=== PATIENT | male | born 1960 | race Caucasian/White ===

== ENCOUNTER 2018-12-10 09:06 | Emergency (ER) | payer SELFPAY ==
--- OUTSIDE RECORDS SUMMARY | 2018-12-10 09:13 | XMS REPORT | Summary of Care ---
:1960 Author Organization [facility] Address [address] [place] [id number] Care Team Providers Name Role Phone Pcp, Patient Does Not Have A Primary Care Provider Reason for Visit Auth/Cert Status Reason Specialty Diagnoses / Procedures Referred By Contact Referred To Contact [facility] [address] [place] [address] Encounter Details Date Type Department Care Team Description 10/25/2018 Hospital Encounter [facility] [address] [facility] [address] [place] [address] [id number] [place], [place] [id number] Allergies No Known Allergiesdocumented as of this encounter (statuses as of 10/28/2018) Medications Medication Sig Dispensed Refills Start Date End Date Status atorvastatin (LIPITOR) 10 0 04/24/2015 Active mg tablet losartan (COZAAR) 100 mg 0 04/24/2015 Active tablet metoprolol succinate XL 0 05/04/2015 Active (TOPROL XL) 100 mg 24 hr tablet hydrochlorothiazide TAKE 1 TABLET 30 tablet 0 09/26/2015 Active (ESIDRIX) 25 mg tablet BY MOUTH DAILY documented as of this encounter (statuses as of 10/28/2018) Active Problems Problem Noted Date Essential hypertension 05/12/2015 Hyperlipidemia 05/12/2015 Tobacco use 05/12/2015 Psoriasis 05/12/2015 documented as of this encounter (statuses as of 10/28/2018) Social History Tobacco Use Types Packs/Day Years Used Date Former Smoker Cigarettes 1 5 Quit: 05/12/1994 Smokeless Tobacco: Current User Snuff Comments: 1 can daily Alcohol Use Drinks/Week oz/Week Comments Yes 6 Cans of beer 3.6 Sex Assigned at Date Recorded Not on file Job Start Date Occupation Industry Not on file Not on file Not on file Travel History Travel Start Travel End No recent travel history available. documented as of this encounter Last Filed Vital Signs Not on filedocumented in this encounter Plan of Treatment Health Maintenance Due Date Last Done Comments HEPATITIS C (HCV) SCREEN 1960 DTaP,Tdap,and Td Vaccines (1 - 1977 Tdap) COLONOSCOPY 2008 Zoster Recombinant Vaccine 2008 (SHINGRIX) (1 of 2) INFLUENZA VACCINE 11/22/2018 PNEUMOCOCCAL 0-64 YEARS COMBINED Aged Out No longer eligible based on SERIES patient's age to complete this topic documented as of this encounter Results Not on filedocumented in this encounter
--- OUTSIDE RECORDS SUMMARY | 2018-12-10 09:13 | XMS REPORT ---
:1960 [facility] [address] [place] [address] Care Team Providers Name Role Phone Unavailable Unavailable Unavailable Problems This patient has no known problems. Allergies, Adverse Reactions, Alerts This patient has no known allergies or adverse reactions. Medications This patient has no known medications. Results Test Description Test Time Test Comments Text Results Atomic Results Result Comments POC Glucose 2018-11-09 06:10:22 Test Item Value Reference Range Comments Glucose POC (test code=Glucose 88 mg/dL 70-115 If you consider your patient POC) critically ill, the Marcelino-Accu Check Infrom II meter should not be used for Glucose determination. Draw a venous Glucose and send to the main Lab for analysis. POC [id number] 19:02:50 Test Item Value Reference Range Comments Glucose POC (test 124 mg/dL 70-115 If you consider your patient code=Glucose POC) critically ill, the Marcelino-Accu Check Infrom II meter should not be used for Glucose determination. Draw a venous Glucose and send to the main Lab for analysis. POC [id number] 15:02:23 Test Item Value Reference Range Comments Glucose POC (test 124 mg/dL 70-115 If you consider your patient code=Glucose POC) critically ill, the Marcelino-Accu Check Infrom II meter should not be used for Glucose determination. Draw a venous Glucose and send to the main Lab for analysis. POC [id number] 10:48:16 Test Item Value Reference Range Comments Glucose POC (test 110 mg/dL 70-115 Notify RN or MDIf you consider code=Glucose POC) your patient critically ill, the Marcelino-Accu Check Infrom II meter should not be used for Glucose determination. Draw a venous Glucose and send to the main Lab for analysis. POC [id number] 05:50:44 Test Item Value Reference Range Comments Glucose POC (test 92 mg/dL 70-115 If you consider your patient code=Glucose POC) critically ill, the Marcelino-Accu Check Infrom II meter should not be used for Glucose determination. Draw a venous Glucose and send to the main Lab for analysis. POC [id number] 19:25:14 Test Item Value Reference Range Comments Glucose POC (test 125 mg/dL 70-115 Notify RN or MDIf you consider code=Glucose POC) your patient critically ill, the Marcelino-Accu Check Infrom II meter should not be used for Glucose determination. Draw a venous Glucose and send to the main Lab for analysis. POC [id number] 17:25:19 Test Item Value Reference Range Comments Glucose POC (test 103 mg/dL 70-115 Notify RN or MDIf you consider code=Glucose POC) your patient critically ill, the Marcelino-Accu Check Infrom II meter should not be used for Glucose determination. Draw a venous Glucose and send to the main Lab for analysis. POC [id number] 12:14:50 Test Item Value Reference Range Comments Glucose POC (test 103 mg/dL 70-115 If you consider your patient code=Glucose POC) critically ill, the Marcelino-Accu Check Infrom II meter should not be used for Glucose determination. Draw a venous Glucose and send to the main Lab for analysis. POC [id number] 06:21:22 Test Item Value Reference Range Comments Glucose POC (test 93 mg/dL 70-115 If you consider your patient code=Glucose POC) critically ill, the Marcelino-Accu Check Infrom II meter should not be used for Glucose determination. Draw a venous Glucose and send to the main Lab for analysis. POC [id number] 19:36:16 Test Item Value Reference Range Comments Glucose POC (test 113 mg/dL 70-115 If you consider your patient code=Glucose POC) critically ill, the Marcelino-Accu Check Infrom II meter should not be used for Glucose determination. Draw a venous Glucose and send to the main Lab for analysis. POC [id number] 14:53:15 Test Item Value Reference Range Comments Glucose POC (test 136 mg/dL 70-115 Notify RN or MDIf you consider code=Glucose POC) your patient critically ill, the Marcelino-Accu Check Infrom II meter should not be used for Glucose determination. Draw a venous Glucose and send to the main Lab for analysis. POC [id number] 11:03:52 Test Item Value Reference Range Comments Glucose POC (test 110 mg/dL 70-115 Notify RN or MDIf you consider code=Glucose POC) your patient critically ill, the Marcelino-Accu Check Infrom II meter should not be used for Glucose determination. Draw a venous Glucose and send to the main Lab for analysis. POC [id number] 06:11:41 Test Item Value Reference Range Comments Glucose POC (test 92 mg/dL 70-115 If you consider your patient code=Glucose POC) critically ill, the Marcelino-Accu Check Infrom II meter should not be used for Glucose determination. Draw a venous Glucose and send to the main Lab for analysis. POC [id number] 19:07:17 Test Item Value Reference Range Comments Glucose POC (test 128 mg/dL 70-115 If you consider your patient code=Glucose POC) critically ill, the Marcelino-Accu Check Infrom II meter should not be used for Glucose determination. Draw a venous Glucose and send to the main Lab for analysis. POC [id number] 15:37:40 Test Item Value Reference Range Comments Glucose POC (test 109 mg/dL 70-115 If you consider your patient code=Glucose POC) critically ill, the Marcelino-Accu Check Infrom II meter should not be used for Glucose determination. Draw a venous Glucose and send to the main Lab for analysis. POC [id number] 10:42:43 Test Item Value Reference Range Comments Glucose POC (test 132 mg/dL 70-115 If you consider your patient code=Glucose POC) critically ill, the Marcelino-Accu Check Infrom II meter should not be used for Glucose determination. Draw a venous Glucose and send to the main Lab for analysis. POC [id number] 06:09:11 Test Item Value Reference Range Comments Glucose POC (test 97 mg/dL 70-115 If you consider your patient code=Glucose POC) critically ill, the Marcelino-Accu Check Infrom II meter should not be used for Glucose determination. Draw a venous Glucose and send to the main Lab for analysis. POC [id number] 19:44:43 Test Item Value Reference Range Comments Glucose POC (test 110 mg/dL 70-115 If you consider your patient code=Glucose POC) critically ill, the Marcelino-Accu Check Infrom II meter should not be used for Glucose determination. Draw a venous Glucose and send to the main Lab for analysis. POC [id number] 16:50:44 Test Item Value Reference Range Comments Glucose POC (test 101 mg/dL 70-115 If you consider your patient code=Glucose POC) critically ill, the Marcelino-Accu Check Infrom II meter should not be used for Glucose determination. Draw a venous Glucose and send to the main Lab for analysis. POC [id number] 11:02:46 Test Item Value Reference Range Comments Glucose POC (test 113 mg/dL 70-115 Notify RN or MDIf you consider code=Glucose POC) your patient critically ill, the Marcelino-Accu Check Infrom II meter should not be used for Glucose determination. Draw a venous Glucose and send to the main Lab for analysis. POC [id number] 06:36:10 Test Item Value Reference Range Comments Glucose POC (test 100 mg/dL 70-115 If you consider your patient code=Glucose POC) critically ill, the Marcelino-Accu Check Infrom II meter should not be used for Glucose determination. Draw a venous Glucose and send to the main Lab for analysis. POC [id number] 19:50:11 Test Item Value Reference Range Comments Glucose POC (test 114 mg/dL 70-115 Notify RN or MDIf you consider code=Glucose POC) your patient critically ill, the Marcelino-Accu Check Infrom II meter should not be used for Glucose determination. Draw a venous Glucose and send to the main Lab for analysis. POC [id number] 14:58:14 Test Item Value Reference Range Comments Glucose POC (test 127 mg/dL 70-115 Notify RN or MDIf you consider code=Glucose POC) your patient critically ill, the Marcelino-Accu Check Infrom II meter should not be used for Glucose determination. Draw a venous Glucose and send to the main Lab for analysis. POC [id number] 10:55:10 Test Item Value Reference Range Comments Glucose POC (test 115 mg/dL 70-115 Notify RN or MDIf you consider code=Glucose POC) your patient critically ill, the Marcelino-Accu Check Infrom II meter should not be used for Glucose determination. Draw a venous Glucose and send to the main Lab for analysis. Vitamin B12 [id number] 07:24:52 Test Item Value Reference Range Comments B12 Level (test code=B12 Level) 494 pg/mL 211-946 POC [id number] 06:24:38 Test Item Value Reference Range Comments Glucose POC (test 93 mg/dL 70-115 If you consider your patient code=Glucose POC) critically ill, the Marcelino-Accu Check Infrom II meter should not be used for Glucose determination. Draw a venous Glucose and send to the main Lab for analysis. POC [id number] 20:21:08 Test Item Value Reference Range Comments Glucose POC (test 144 mg/dL 70-115 If you consider your patient code=Glucose POC) critically ill, the Marcelino-Accu Check Infrom II meter should not be used for Glucose determination. Draw a venous Glucose and send to the main Lab for analysis. POC [id number] 15:45:14 Test Item Value Reference Range Comments Glucose POC (test 160 mg/dL 70-115 If you consider your patient code=Glucose POC) critically ill, the Marcelino-Accu Check Infrom II meter should not be used for Glucose determination. Draw a venous Glucose and send to the main Lab for analysis. POC [id number] 11:30:10 Test Item Value Reference Range Comments Glucose POC (test 144 mg/dL 70-115 If you consider your patient code=Glucose POC) critically ill, the Marcelino-Accu Check Infrom II meter should not be used for Glucose determination. Draw a venous Glucose and send to the main Lab for analysis. Thyroid Stimulating [id number] 07:58:30 Test Item Value Reference Range Comments TSH (test code=TSH) 2.700 mIU/mL 0.270-4.200 Basic Metabolic [id number] 07:44:47 Test Item Value Reference Range Comments Sodium Level (test code=Sodium Level) 144.0 mmol/L 135.0-145.0 Potassium Level (test code=Potassium Level) 4.5 mmol/L 3.5-5.1 Chloride Level (test code=Chloride Level) 102 mmol/L 98-105 CO2 (test code=CO2) 29 mmol/L 22-29 Anion Gap (test code=Anion Gap) 13 mmol/L 7-16 BUN (test code=BUN) 18.20 mg/dL 6.00-20.00 Creatinine Level (test code=Creatinine Level) 0.80 mg/dL 0.70-1.20 BUN/Creat Ratio (test code=BUN/Creat Ratio) 23 Glucose Level (test code=Glucose Level) 93 mg/dL 70-115 Calcium Level (test code=Calcium Level) 10.1 mg/dL 8.3-10.5 Basic Metabolic [id number] 07:44:47 Test Item Value Reference Range Comments Sodium Level (test 144.0 mmol/L 135.0-145.0 code=Sodium Level) Potassium Level (test 4.5 mmol/L 3.5-5.1 code=Potassium Level) Chloride Level (test 102 mmol/L 98-105 code=Chloride Level) CO2 (test code=CO2) 29 mmol/L 22-29 Anion Gap (test 13 mmol/L 7-16 code=Anion Gap) BUN (test code=BUN) 18.20 mg/dL 6.00-20.00 Creatinine Level (test 0.80 mg/dL 0.70-1.20 code=Creatinine Level) BUN/Creat Ratio (test 23 code=BUN/Creat Ratio) Glucose Level (test 93 mg/dL 70-115 code=Glucose Level) Calcium Level (test 10.1 mg/dL 8.3-10.5 code=Calcium Level) eGFR AA (test code=eGFR >60 mL/min/1.73 m2 eGFR (estimated AA) Glomerular Filtration Rate) is an estimated value, calculated from the patient's serum creatinine using the MDRD equation. It is NOT the patient's actual GFR. The eGFR provides a more clinically useful measure of kidney disease than serum creatinine alone.This calculation takes sex and race into account, if the information is provided. If the race is not provided, and the patient is -[place], multiply by 1.212. If sex is not provided, and the patient is female, multiply by 0.742. Results for patients <18 years of age have not been validated by the MDRD study and should be interpreted with caution. eGFR Result Interpretation:eGFR > or=60 is in the Normal RangeeGFR < 60 may mean kidney diseaseeGFR < 15 may mean kidney failure Ranges recommended by the National Kidney Foundation, http://nkdep.nih.gov Basic Metabolic [id number] 07:44:47 Test Item Value Reference Range Comments Sodium Level (test 144.0 mmol/L 135.0-145.0 code=Sodium Level) Potassium Level (test 4.5 mmol/L 3.5-5.1 code=Potassium Level) Chloride Level (test 102 mmol/L 98-105 code=Chloride Level) CO2 (test code=CO2) 29 mmol/L 22-29 Anion Gap (test 13 mmol/L 7-16 code=Anion Gap) BUN (test code=BUN) 18.20 mg/dL 6.00-20.00 Creatinine Level (test 0.80 mg/dL 0.70-1.20 code=Creatinine Level) BUN/Creat Ratio (test 23 code=BUN/Creat Ratio) Glucose Level (test 93 mg/dL 70-115 code=Glucose Level) Calcium Level (test 10.1 mg/dL 8.3-10.5 code=Calcium Level) eGFR AA (test code=eGFR >60 mL/min/1.73 m2 eGFR (estimated AA) Glomerular Filtration Rate) is an estimated value, calculated from the patient's serum creatinine using the MDRD equation. It is NOT the patient's actual GFR. The eGFR provides a more clinically useful measure of kidney disease than serum creatinine alone.This calculation takes sex and race into account, if the information is provided. If the race is not provided, and the patient is -[place], multiply by 1.212. If sex is not provided, and the patient is female, multiply by 0.742. Results for patients <18 years of age have not been validated by the MDRD study and should be interpreted with caution. eGFR Result Interpretation:eGFR > or=60 is in the Normal RangeeGFR < 60 may mean kidney diseaseeGFR < 15 may mean kidney failure Ranges recommended by the National Kidney Foundation, http://nkdep.nih.gov eGFR Non-AA (test >60.00 mL/min/1.73 eGFR (estimated code=eGFR Non-AA) m2 Glomerular Filtration Rate) is an estimated value, calculated from the patient's serum creatinine using the MDRD equation. It is NOT the patient's actual GFR. The eGFR provides a more clinically useful measure of kidney disease than serum creatinine alone.This calculation takes sex and race into account, if the information is provided. If the race is not provided, and the patient is -[place], multiply by 1.212. If sex is not provided, and the patient is female, multiply by 0.742. Results for patients <18 years of age have not been validated by the MDRD study and should be interpreted with caution. eGFR Result Interpretation:eGFR > or=60 is in the Normal RangeeGFR < 60 may mean kidney diseaseeGFR < 15 may mean kidney failure Ranges recommended by the National Kidney Foundation, http://nkdep.nih.gov Hemoglobin [id number] 07:34:54 Test Item Value Reference Range Comments Hemoglobin A1c (test 5.5 % 4.8-5.9 Non Diabetic 4.8-5.9%Diabetic code=Hemoglobin A1c) <7.0% POC [id number] 06:03:40 Test Item Value Reference Range Comments Glucose POC (test 96 mg/dL 70-115 Notify RN or MDIf you consider code=Glucose POC) your patient critically ill, the Marcelino-Accu Check Infrom II meter should not be used for Glucose determination. Draw a venous Glucose and send to the main Lab for analysis. POC [id number] 19:28:40 Test Item Value Reference Range Comments Glucose POC (test 131 mg/dL 70-115 Notify RN or MDIf you consider code=Glucose POC) your patient critically ill, the Marcelino-Accu Check Infrom II meter should not be used for Glucose determination. Draw a venous Glucose and send to the main Lab for analysis. POC [id number] 15:53:36 Test Item Value Reference Range Comments Glucose POC (test 128 mg/dL 70-115 Notify RN or MDIf you consider code=Glucose POC) your patient critically ill, the Marcelino-Accu Check Infrom II meter should not be used for Glucose determination. Draw a venous Glucose and send to the main Lab for analysis. POC [id number] 10:38:42 Test Item Value Reference Range Comments Glucose POC (test 129 mg/dL 70-115 If you consider your patient code=Glucose POC) critically ill, the Marcelino-Accu Check Infrom II meter should not be used for Glucose determination. Draw a venous Glucose and send to the main Lab for analysis. POC [id number] 05:55:07 Test Item Value Reference Range Comments Glucose POC (test 93 mg/dL 70-115 Notify RN or MDIf you consider code=Glucose POC) your patient critically ill, the Marcelino-Accu Check Infrom II meter should not be used for Glucose determination. Draw a venous Glucose and send to the main Lab for analysis. POC [id number] 19:25:37 Test Item Value Reference Range Comments Glucose POC (test 211 mg/dL 70-115 Notify RN or MDIf you consider code=Glucose POC) your patient critically ill, the Marcelino-Accu Check Infrom II meter should not be used for Glucose determination. Draw a venous Glucose and send to the main Lab for analysis. POC [id number] 11:05:38 Test Item Value Reference Range Comments Glucose POC (test 179 mg/dL 70-115 Notify RN or MDIf you consider code=Glucose POC) your patient critically ill, the Marcelino-Accu Check Infrom II meter should not be used for Glucose determination. Draw a venous Glucose and send to the main Lab for analysis. POC [id number] 06:20:09 Test Item Value Reference Range Comments Glucose POC (test 111 mg/dL 70-115 If you consider your patient code=Glucose POC) critically ill, the Marcelino-Accu Check Infrom II meter should not be used for Glucose determination. Draw a venous Glucose and send to the main Lab for analysis. POC [id number] 19:33:01 Test Item Value Reference Range Comments Glucose POC (test 172 mg/dL 70-115 Notify RN or MDIf you consider code=Glucose POC) your patient critically ill, the Marcelino-Accu Check Infrom II meter should not be used for Glucose determination. Draw a venous Glucose and send to the main Lab for analysis. POC [id number] 15:25:39 Test Item Value Reference Range Comments Glucose POC (test 132 mg/dL 70-115 If you consider your patient code=Glucose POC) critically ill, the Marcelino-Accu Check Infrom II meter should not be used for Glucose determination. Draw a venous Glucose and send to the main Lab for analysis. POC [id number] 12:17:06 Test Item Value Reference Range Comments Glucose POC (test 120 mg/dL 70-115 If you consider your patient code=Glucose POC) critically ill, the Marcelino-Accu Check Infrom II meter should not be used for Glucose determination. Draw a venous Glucose and send to the main Lab for analysis. POC [id number] 06:20:04 Test Item Value Reference Range Comments Glucose POC (test 92 mg/dL 70-115 Notify RN or MDIf you consider code=Glucose POC) your patient critically ill, the Marcelino-Accu Check Infrom II meter should not be used for Glucose determination. Draw a venous Glucose and send to the main Lab for analysis. POC [id number] 20:13:31 Test Item Value Reference Range Comments Glucose POC (test 167 mg/dL 70-115 If you consider your patient code=Glucose POC) critically ill, the Marcelino-Accu Check Infrom II meter should not be used for Glucose determination. Draw a venous Glucose and send to the main Lab for analysis. POC [id number] 15:43:33 Test Item Value Reference Range Comments Glucose POC (test 121 mg/dL 70-115 Notify RN or MDIf you consider code=Glucose POC) your patient critically ill, the Marcelino-Accu Check Infrom II meter should not be used for Glucose determination. Draw a venous Glucose and send to the main Lab for analysis. POC [id number] 12:09:32 Test Item Value Reference Range Comments Glucose POC (test 114 mg/dL 70-115 Notify RN or MDIf you consider code=Glucose POC) your patient critically ill, the Marcelino-Accu Check Infrom II meter should not be used for Glucose determination. Draw a venous Glucose and send to the main Lab for analysis. POC [id number] 06:27:06 Test Item Value Reference Range Comments Glucose POC (test 105 mg/dL 70-115 Notify RN or MDIf you consider code=Glucose POC) your patient critically ill, the Marcelino-Accu Check Infrom II meter should not be used for Glucose determination. Draw a venous Glucose and send to the main Lab for analysis. POC [id number] 20:29:04 Test Item Value Reference Range Comments Glucose POC (test 165 mg/dL 70-115 Notify RN or MDIf you consider code=Glucose POC) your patient critically ill, the Marcelino-Accu Check Infrom II meter should not be used for Glucose determination. Draw a venous Glucose and send to the main Lab for analysis. POC [id number] 16:37:00 Test Item Value Reference Range Comments Glucose POC (test 111 mg/dL 70-115 Notify RN or MDIf you consider code=Glucose POC) your patient critically ill, the Marcelino-Accu Check Infrom II meter should not be used for Glucose determination. Draw a venous Glucose and send to the main Lab for analysis. POC [id number] 12:27:35 Test Item Value Reference Range Comments Glucose POC (test 104 mg/dL 70-115 If you consider your patient code=Glucose POC) critically ill, the Marcelino-Accu Check Infrom II meter should not be used for Glucose determination. Draw a venous Glucose and send to the main Lab for analysis. POC [id number] 06:12:34 Test Item Value Reference Range Comments Glucose POC (test 99 mg/dL 70-115 If you consider your patient code=Glucose POC) critically ill, the Marcelino-Accu Check Infrom II meter should not be used for Glucose determination. Draw a venous Glucose and send to the main Lab for analysis. POC [id number] 19:31:34 Test Item Value Reference Range Comments Glucose POC (test 144 mg/dL 70-115 Notify RN or MDIf you consider code=Glucose POC) your patient critically ill, the Marcelino-Accu Check Infrom II meter should not be used for Glucose determination. Draw a venous Glucose and send to the main Lab for analysis. POC [id number] 16:14:34 Test Item Value Reference Range Comments Glucose POC (test 126 mg/dL 70-115 If you consider your patient code=Glucose POC) critically ill, the Marcelino-Accu Check Infrom II meter should not be used for Glucose determination. Draw a venous Glucose and send to the main Lab for analysis. POC [id number] 12:28:28 Test Item Value Reference Range Comments Glucose POC (test 110 mg/dL 70-115 Notify RN or MDIf you consider code=Glucose POC) your patient critically ill, the Marcelino-Accu Check Infrom II meter should not be used for Glucose determination. Draw a venous Glucose and send to the main Lab for analysis. POC [id number] 07:23:42 Test Item Value Reference Range Comments Glucose POC (test 114 mg/dL 70-115 If you consider your patient code=Glucose POC) critically ill, the Marcelino-Accu Check Infrom II meter should not be used for Glucose determination. Draw a venous Glucose and send to the main Lab for analysis. POC [id number] 20:39:07 Test Item Value Reference Range Comments Glucose POC (test 115 mg/dL 70-115 If you consider your patient code=Glucose POC) critically ill, the Marcelino-Accu Check Infrom II meter should not be used for Glucose determination. Draw a venous Glucose and send to the main Lab for analysis. POC [id number] 11:16:07 Test Item Value Reference Range Comments Glucose POC (test 136 mg/dL 70-115 If you consider your patient code=Glucose POC) critically ill, the Marcelino-Accu Check Infrom II meter should not be used for Glucose determination. Draw a venous Glucose and send to the main Lab for analysis. Urine [id number] 09:08:32 C Urine Added by [id number] growth at 24 hours. No growth at 48 hours.RPR [id number] 02:34:49 Test Item Value Reference Range Comments RPR Qual (test code=RPR Qual) Non-Reactive Non-Reactive Reactive Control (test code=Reactive Control) Reactive Weak Reactive Control (test code=Weak Reactive Weak Reactive Control) Non-Reactive Control (test code=Non-Reactive Non-Reactive Control) Lot # (test code=Lot #) [id number] Expiration Dt (test code=Expiration Dt) 01.22.2020 Lipid [id number] 00:50:26 Test Item Value Reference Range Comments Cholesterol Total (test 254 mg/dL 0-200 RISK OF HEART DISEASEPublished code=Cholesterol Total) by [place] [employer] Analyte Optimal Borderline Increased RiskCHOL <200 200-239 >240TRIG <150 150-199 >200HDL Male >60 <40HDL Female >60 <50LDL <100 130-159 >160LDL Near optimal is 100-129 Triglycerides (test 151 mg/dL 9-200 code=Triglycerides) HDL (test code=HDL) 63 mg/dL 40-60 LDL (test code=LDL) 161 mg/dL 0-130 The equation being used in this calculation is LDL=(Chol - HDL) - (Trig / 5) VLDL (test code=VLDL) 30 mg/dL 5-40 The equation being used in this calculation is VLDL=Trig / 5 Chol/HDL (test 4.0 ratio 0.0-5.0 code=Chol/HDL) LDL/HDL Ratio (test 3 The equation being used in this code=LDL/HDL Ratio) calculation is LDL/HDL Ratio=LDL Calc/HDL Chol Thyroid Stimulating [id number] 00:50:26 Test Item Value Reference Range Comments TSH (test code=TSH) 1.010 mIU/mL 0.270-4.200 Comprehensive Metabolic [id number] 16:55:05 Test Item Value Reference Range Comments Sodium Level (test code=Sodium Level) 141.0 mmol/L 135.0-145.0 Potassium Level (test code=Potassium Level) 3.8 mmol/L 3.5-5.1 Chloride Level (test code=Chloride Level) 98 mmol/L 98-105 CO2 (test code=CO2) 24 mmol/L 22-29 Anion Gap (test code=Anion Gap) 19 mmol/L 7-16 BUN (test code=BUN) 22.10 mg/dL 6.00-20.00 Creatinine Level (test code=Creatinine Level) 1.10 mg/dL 0.70-1.20 BUN/Creat Ratio (test code=BUN/Creat Ratio) 20 Glucose Level (test code=Glucose Level) 142 mg/dL 70-115 Calcium Level (test code=Calcium Level) 10.6 mg/dL 8.3-10.5 Alk Phos (test code=Alk Phos) 125 U/L 40-129 Bilirubin Total (test code=Bilirubin Total) 2.7 mg/dL 0.1-0.9 Albumin Level (test code=Albumin Level) 4.9 g/dL 3.5-5.2 Protein Total (test code=Protein Total) 8.7 g/dL 6.4-8.3 ALT (test code=ALT) 17 U/L 1-41 AST (test code=AST) 23 U/L 1-40 Globulin (test code=Globulin) 3.8 g/dL 2.9-3.1 A/G Ratio (test code=A/G Ratio) 1.3 ratio Comprehensive Metabolic [id number] 16:55:05 Test Item Value Reference Range Comments Sodium Level (test 141.0 mmol/L 135.0-145.0 code=Sodium Level) Potassium Level (test 3.8 mmol/L 3.5-5.1 code=Potassium Level) Chloride Level (test 98 mmol/L 98-105 code=Chloride Level) CO2 (test code=CO2) 24 mmol/L 22-29 Anion Gap (test 19 mmol/L 7-16 code=Anion Gap) BUN (test code=BUN) 22.10 mg/dL 6.00-20.00 Creatinine Level (test 1.10 mg/dL 0.70-1.20 code=Creatinine Level) BUN/Creat Ratio (test 20 code=BUN/Creat Ratio) Glucose Level (test 142 mg/dL 70-115 code=Glucose Level) Calcium Level (test 10.6 mg/dL 8.3-10.5 code=Calcium Level) Alk Phos (test code=Alk 125 U/L 40-129 Phos) Bilirubin Total (test 2.7 mg/dL 0.1-0.9 code=Bilirubin Total) Albumin Level (test 4.9 g/dL 3.5-5.2 code=Albumin Level) Protein Total (test 8.7 g/dL 6.4-8.3 code=Protein Total) ALT (test code=ALT) 17 U/L 1-41 AST (test code=AST) 23 U/L 1-40 Globulin (test 3.8 g/dL 2.9-3.1 code=Globulin) A/G Ratio (test code=A/G 1.3 ratio Ratio) eGFR AA (test code=eGFR >60 mL/min/1.73 m2 eGFR (estimated AA) Glomerular Filtration Rate) is an estimated value, calculated from the patient's serum creatinine using the MDRD equation. It is NOT the patient's actual GFR. The eGFR provides a more clinically useful measure of kidney disease than serum creatinine alone.This calculation takes sex and race into account, if the information is provided. If the race is not provided, and the patient is -[place], multiply by 1.212. If sex is not provided, and the patient is female, multiply by 0.742. Results for patients <18 years of age have not been validated by the MDRD study and should be interpreted with caution. eGFR Result Interpretation:eGFR > or=60 is in the Normal RangeeGFR < 60 may mean kidney diseaseeGFR < 15 may mean kidney failure Ranges recommended by the National Kidney Foundation, http://nkdep.nih.gov Alcohol [id number] 16:55:05 Test Item Value Reference Range Comments Ethanol Level (test <0.00 g/dL 0.00-0.01 Intoxicated 0.080 g/dL or more code=Ethanol Level) Ethanol Inst (test <0 code=Ethanol Inst) Comprehensive Metabolic [id number] 16:55:05 Test Item Value Reference Range Comments Sodium Level (test 141.0 mmol/L 135.0-145.0 code=Sodium Level) Potassium Level (test 3.8 mmol/L 3.5-5.1 code=Potassium Level) Chloride Level (test 98 mmol/L 98-105 code=Chloride Level) CO2 (test code=CO2) 24 mmol/L 22-29 Anion Gap (test 19 mmol/L 7-16 code=Anion Gap) BUN (test code=BUN) 22.10 mg/dL 6.00-20.00 Creatinine Level (test 1.10 mg/dL 0.70-1.20 code=Creatinine Level) BUN/Creat Ratio (test 20 code=BUN/Creat Ratio) Glucose Level (test 142 mg/dL 70-115 code=Glucose Level) Calcium Level (test 10.6 mg/dL 8.3-10.5 code=Calcium Level) Alk Phos (test code=Alk 125 U/L 40-129 Phos) Bilirubin Total (test 2.7 mg/dL 0.1-0.9 code=Bilirubin Total) Albumin Level (test 4.9 g/dL 3.5-5.2 code=Albumin Level) Protein Total (test 8.7 g/dL 6.4-8.3 code=Protein Total) ALT (test code=ALT) 17 U/L 1-41 AST (test code=AST) 23 U/L 1-40 Globulin (test 3.8 g/dL 2.9-3.1 code=Globulin) A/G Ratio (test code=A/G 1.3 ratio Ratio) eGFR AA (test code=eGFR >60 mL/min/1.73 m2 eGFR (estimated AA) Glomerular Filtration Rate) is an estimated value, calculated from the patient's serum creatinine using the MDRD equation. It is NOT the patient's actual GFR. The eGFR provides a more clinically useful measure of kidney disease than serum creatinine alone.This calculation takes sex and race into account, if the information is provided. If the race is not provided, and the patient is -[place], multiply by 1.212. If sex is not provided, and the patient is female, multiply by 0.742. Results for patients <18 years of age have not been validated by the MDRD study and should be interpreted with caution. eGFR Result Interpretation:eGFR > or=60 is in the Normal RangeeGFR < 60 may mean kidney diseaseeGFR < 15 may mean kidney failure Ranges recommended by the National Kidney Foundation, http://nkdep.nih.gov eGFR Non-AA (test >60.00 mL/min/1.73 eGFR (estimated code=eGFR Non-AA) m2 Glomerular Filtration Rate) is an estimated value, calculated from the patient's serum creatinine using the MDRD equation. It is NOT the patient's actual GFR. The eGFR provides a more clinically useful measure of kidney disease than serum creatinine alone.This calculation takes sex and race into account, if the information is provided. If the race is not provided, and the patient is -[place], multiply by 1.212. If sex is not provided, and the patient is female, multiply by 0.742. Results for patients <18 years of age have not been validated by the MDRD study and should be interpreted with caution. eGFR Result Interpretation:eGFR > or=60 is in the Normal RangeeGFR < 60 may mean kidney diseaseeGFR < 15 may mean kidney failure Ranges recommended by the National Kidney Foundation, http://nkdep.nih.gov Urine Drug [id number] 16:41:25 Test Item Value Reference Range Comments Amphetamine Screen Ur (test Negative Negative code=Amphetamine Screen Ur) Barbiturate Screen Ur (test Negative Negative code=Barbiturate Screen Ur) Benzodiazepines Ur (test Negative Negative code=Benzodiazepines Ur) Cocaine Screen Ur (test Negative Negative code=Cocaine Screen Ur) U Methadone Scr (test code=U Negative Negative Methadone Scr) Opiate Screen Ur (test Negative Negative code=Opiate Screen Ur) U PCP Scrn (test code=U PCP Negative Negative Scrn) Cannabinoid Screen Ur (test Negative Negative code=Cannabinoid Screen Ur) U TCA (test code=U TCA) Negative Negative The results of all drug screen tests are only preliminary. Clinical consideration and professional judgment should be applied to any drug of abuse test result, particularly when preliminary positive results are obtained. Please order a separate confirmatory test if desired. Urinalysis [id number] 16:37:04 Test Item Value Reference Range Comments UA WBC (test code=UA WBC) 6-10 0-5 UA RBC (test code=UA RBC) 0-5 0-5 UA Bacteria (test code=UA Bacteria) Few UA Squam Epithelial (test code=UA Squam Epithelial) 0-5 UA Mucous (test code=UA Mucous) Many UA Hyal Cast (test code=UA Hyal Cast) 6-10 UA Gran Cast (test code=UA Gran Cast) 6-10 UA Waxy Cast (test code=UA Waxy Cast) 1-5 Complete Blood Count with [id number] 16:17:16 Test Item Value Reference Range Comments WBC (test code=WBC) 8.6 x10 4.4-10.5 RBC (test code=RBC) 4.97 x10 4.10-5.70 Hgb (test code=Hgb) 15.4 g/dL 13.4-17.4 Hct (test code=Hct) 44.5 % 38.7-52.0 MCV (test code=MCV) 89.50 fL 80.00-100.00 MCHC (test code=MCHC) 34.60 g/dL 32.00-37.50 RDW CV (test code=RDW CV) 13.0 % 11.5-14.5 MCH (test code=MCH) 31.0 pg 27.0-32.5 Platelets (test 244.0 x10 140.0-440.0 code=Platelets) MPV (test code=MPV) 11.0 fL Slide Review (test code=Slide Auto Auto Result created by Review) GL_SJM_SLIDE_REV_AUTO nRBC (test code=nRBC) 0 NRBC Abs (test code=NRBC Abs) 0.00 x10 IPF (test code=IPF) 0 % Automated [id number] 16:17:16 Test Item Value Reference Range Comments Neutro Auto (test code=Neutro Auto) 61.8 % 36.0-70.0 Lymph Auto (test code=Lymph Auto) 26.9 % 12.0-44.0 [place] Auto (test code=[place] Auto) 8.6 % 0.0-11.0 Eos, Auto (test code=Eos, Auto) 0.9 % 0.0-7.0 Basophil Auto (test code=Basophil Auto) 1.3 % 0.0-2.0 Neutro Absolute (test code=Neutro Absolute) 5.3 x10 1.6-7.4 Lymph Absolute (test code=Lymph Absolute) 2.32 x10 .50-4.60 [place] Absolute (test code=[place] Absolute) .74 x10 .00-1.20 Eos Absolute (test code=Eos Absolute) 0.08 x10 0.00-0.74 Baso Absolute (test code=Baso Absolute) 0.11 x10 0.00-0.21 IG [id number] 16:17:16 Test Item Value Reference Range Comments IG (test code=IG) 0.5 % 0.0-5.0 IG Abs (test code=IG Abs) 0 x10 Urinalysis with Culture, if [id number] 16:16:51 Test Item Value Reference Range Comments UA Color (test code=UA Color) FAINA Yellow UA Appear (test code=UA Appear) CLEAR Clear UA pH (test code=UA pH) 5 UA Spec Grav (test code=UA Spec 1.027 1.001-1.035 Grav) UA Glucose (test code=UA NEG Negative Glucose) UA Bili (test code=UA Bili) 1 mg/dL Negative UA Ketones (test code=UA 5 mg/dL Negative Ketones) UA Blood (test code=UA Blood) NEG Negative UA Protein (test code=UA 25 mg/dL Negative Protein) UA Urobilinogen (test code=UA 4 mg/dL >0.2 Urobilinogen) UA Nitrite (test code=UA NEG Negative Nitrite) UA Leuk Est (test code=UA Leuk NEG Negative Est) UA Micro Ind? (test code=UA Indicated Not Indicated Result created by rule Micro Ind?) GL_SJM_UA_MICRO_IND CT Maxillofacial w/o [id number] 10:04:30Patient: DESTINEE HERNANDEZ Date/Time07/19/2018 09:47 CDTReason for ExamTraumaReportCT FACE WITHOUT IV CONTRAST; CORONAL AND SAGITTAL REFORMATTED VIEWSHISTORY:TraumaCOMPARISON:None.TECHNIQUE: Axial CT images of the face were obtained with coronal and sagittal reformatted views. 3-D reconstruction of the facial bones. Automated exposure control, iterative reconstruction technique, and/or adjustment of mA and/or kV according to patient 's size was utilized for radiation dose reduction.IV CONTRAST: None.Location: [id number]:The mandible is intact.The temporomandibular joints are maintained. No facial fracture. Mild thickening of the maxillary sinuses. The remainder the paranasal sinuses are clear. The mastoid air cells are clear.The globes appear intact. No retrobulbar hemorrhage or mass. No CT evidence of extraocular muscle entrapment, correlate clinically.There are multiple apical lucencies along the teeth of the right maxilla.IMPRESSION:Nofacial fracture.Periodontal disease. * Final Dictated by: MD Ludy, PrasadDT/TM: 07/19/2018 10 :01 amSigned by: MD Boston SankamanSigned (Electronic Signature): 2018 10:04 [facility] Brain/Head w/o [id number] 10:01:11Patient: DESTINEE HERNANDEZ Date/Time07/19/2018 09:47 CDTReason for ExamTraumaReportCT HEAD WITHOUT CONTRAST.HISTORY: TraumaCOMPARISON: No comparison is available.TECHNIQUE: Axial CT images of the head were obtained with coronal and/or sagittal reformatted views. Automated exposure control, iterative reconstruction technique, and/or adjustment of mA and/or kV according to patient's size was utilized for radiation dose reduction.IV CONTRAST: None.Location: [id number]:Mild amount of periventricular and deep white matter hypodensities are seen, these are most commonly associated with chronic, microvascular ischemic changes. Mild generalized atrophy is noted. Atherosclerotic calcifications affect the carotid siphons.No other intracranial abnormalities such as hemorrhage, mass, mass effect, hydrocephalus, midline shift, extra-axial fluid collection or secondary signs of an acute infarct are noted.The calvarium and skull base are intact. The paranasal sinus and mastoid air cells are clear.IMPRESSION:No evidence of acute intracranial abnormality.Mild chronic microvascular ischemic changes and atrophy. Final Dictated by: MD Ludy, Prasad DT/TM: 07/19/2018 9:59 amSigned by: MD Boston SankamanSigned (Electronic Signature): 07/19/2018 10:01 am
[2018-12-10] MEDS ORDERED: NA CHLORIDE 0.9% 1,000 ML ONE (09:49)
[2018-12-10 09:54] LABS: Absolute Lymphocytes (CBC) 1.2 K/uL (0.7-4.9); Basophils % 1.1 % (0-1.3); Hematocrit 43.9 % (39.6-49.0); MPV 9.1 fL (7.6-11.3); RBC Red Blood Cell Count 4.84 M/uL (4.33-5.43)
[2018-12-10 10:48] LABS: Protime INR 1.21
[2018-12-10 11:42] LABS: ALT/SGPT 24 U/L (12-78); AST/SGOT 24 U/L (15-37); Albumin 3.3 g/dL (3.4-5.0); Alkaline Phosphatase 113 U/L (45-117); BUN Blood Urea Nitrogen 6 mg/dL (7-18); Bicarbonate 25 mmol/L (21-32); Bilirubin Direct 0.5 mg/dL (0-0.2); Bilirubin Total 1.9 mg/dL (0.2-1.0); Glucose Level 183 mg/dL (74-106); Potassium 3.1 mmol/L (3.5-5.1); Protein, Total 7.6 g/dL (6.4-8.2); Sodium Level 141 mmol/L (136-145)
[2018-12-10 13:34] LABS: Barbiturates NEGATIVE (NEGATIVE); Benzodiazepines NEGATIVE (NEGATIVE); Cocaine NEGATIVE (NEGATIVE); METHAMPHETAM NEGATIVE (NEGATIVE); Methadone NEGATIVE (NEGATIVE); Opiates NEGATIVE (NEGATIVE); Phencyclidine NEGATIVE (NEGATIVE); THC Cannibis NEGATIVE (NEGATIVE)
[2018-12-10] MEDS ORDERED: POTASSIUM CL SA 10 MEQ TAB PO ONE (13:36)
[2018-12-10 15:21] LABS: Urine Blood NEGATIVE (NEG); Urine Glucose NEGATIVE (NEG); Urine Protein NEGATIVE (NEG)
[2018-12-10] MEDS ORDERED: HALOPERIDOL LACT 5 MG/ML INJ ONE (17:19)
[2018-12-11] MEDS ORDERED: LIDOCAINE 1% MPF 5 ML VIAL ONE (03:45)
[2018-12-11] MEDS ORDERED: MUPIROCIN 2% OINT 22GM TUBE TOP ONE (04:04)
--- NOTE | 2018-12-11 04:15 | ER ---
Nurse's Notes [facility] Name: Alban Rodriguez Age: 58 yrs Sex: Male : 1960 Arrival Date: 12/10/2018 Time: 09:08 Bed 18 Private MD: Diagnosis: Schizophrenia;Cutaneous abscess of left hand-thumb nail, drained Presentation: 12/10 09:22 Presenting complaint: [facility] reports pt was standing in the middle of the [facility] [address] and PD reported he has shoelaces tied around his neck. Pt reports he is hearing voices that told him to tie the strings around his neck, denies SI/HI. Transition of care: patient was not received from another setting of care. Onset of symptoms is unknown. Risk Assessment: Do you want to hurt yourself or someone else? Other: pt states "No" but hearing voices that told him to tie shoelaces around his neck, [facility] reports attempt with shoelaces. Initial Sepsis Screen: Does the patient meet any 2 criteria? No. Patient's initial sepsis screen is negative. Does the patient have a suspected source of infection? No. Patient's initial sepsis screen is negative. Care prior to arrival: None. 09:22 Method Of Arrival: Law Enforcement: [place] [id number] 09:22 Acuity: TERRENCE 2 jl7 Triage Assessment: 09:27 General: Appears in no apparent distress. uncomfortable, unkempt, Behavior is jl7 cooperative, anxious. Pain: Denies pain. EENT: Eyes with exudate noted from right eye and left eye. Neuro: Level of Consciousness is awake, alert, obeys commands, Oriented to person, place, time, situation. Cardiovascular: Patient's skin is warm and dry. Respiratory: Airway is patent Respiratory effort is even, unlabored, Respiratory pattern is regular, symmetrical. GI: No signs and/or symptoms were reported involving the gastrointestinal system. Patient currently denies diarrhea, nausea, vomiting. : No signs and/or symptoms were reported regarding the genitourinary system. Derm: Skin is pink, warm \\T\\ dry. Historical: - Allergies: 12/14 08:02 No Known Allergies; ch - Home Meds: 12/10 19:20 risperidone 1 mg oral tab every night [Active]; cc3 19:20 butropion 300 mg daily [Active]; cc3 - PMHx: 09:27 Schizophrenia; jl7 09:31 psoriasis; jl7 12/14 08:02 Asthma; ch - PSHx: 12/10 09:27 Unable to obtain; jl7 12/14 08:02 Knee surgery; ch - Immunization history:: Adult Immunizations unknown. - Social history:: Smoking status: Patient uses tobacco products, smokes one pack cigarettes per day. Patient uses alcohol, on a daily basis. Reports "non-alcoholic beer". - Ebola Screening: : No symptoms or risks identified at this time. Screenin/19 09:30 Abuse screen: Denies threats or abuse. Denies injuries from another. Nutritional jl7 screening: No deficits noted. Tuberculosis screening: No symptoms or risk factors identified. Fall Risk IV access (20 points). Total Powers Fall Scale indicates No Risk (0-24 pts). Assessment: 09:30 General: See triage assessment. jl7 10:36 Reassessment: Patient appears in no apparent distress at this time. No changes from jl7 previously documented assessment. Patient and/or family updated on plan of care and expected duration. Pain level reassessed. Patient is alert, oriented x 3, equal unlabored respirations, skin warm/dry/pink. 12:00 Reassessment: Patient appears in no apparent distress at this time. No changes from jl7 previously documented assessment. Patient and/or family updated on plan of care and expected duration. Pain level reassessed. Patient is alert, oriented x 3, equal unlabored respirations, skin warm/dry/pink. 15:33 Reassessment: Pt laying in bed with eyes closed, respirations even and unlabored, no jl7 signs of distress noted at this time. 17:22 Reassessment: Pt sitting up in bed crying, states "They're talking again." Pt reports jl7 he's talking to his brother and that 'you'll hear about it in the paper." ERP notified, see MAR for orders. 18:33 Reassessment: Pt's brother, Marino, at bedside requesting to talk to provider, SANDRA Dinero jl7 Student at bedside. aMrino r=will be calling up to ER to provide medication names that pt is supposed to be taking. 19:15 Reassessment: Patient appears in no apparent distress at this time. Received this male cc3 patient from morning shift NORAH Vann as a case of suicidal ideation. With IV cannula gauge 20 at the left hand saline locked. Patient resting with eyes closed. Sitter at bedside. Patient denies pain at this time. General: Appears in no apparent distress. comfortable, Behavior is calm, cooperative, appropriate for age. Pain: Denies pain. Neuro: Level of Consciousness is awake, alert, obeys commands, Oriented to person, place, time, situation, Appropriate for age. Cardiovascular: Denies chest pain, Capillary refill < 3 seconds Patient's skin is warm and dry. Respiratory: Airway is patent Respiratory effort is even, unlabored, Respiratory pattern is regular, symmetrical. GI: Abdomen is round non-distended. : No signs and/or symptoms were reported regarding the genitourinary system. EENT: No signs and/or symptoms were reported regarding the EENT system. Derm: Skin is intact, is healthy with good turgor, Skin is pink, warm \\T\\ dry. normal. Musculoskeletal: Circulation, motion, and sensation intact. Range of motion: intact in all extremities, Swelling present in left thumb. 19:20 Reassessment: Patient's brother named Marino Rodriguez called and mentioned the cc3 patient's home medications. 20:25 Reassessment: Patient appears in no apparent distress at this time. Patient and/or cc3 family updated on plan of care and expected duration. Pain level reassessed. Patient is alert, oriented x 3, equal unlabored respirations, skin warm/dry/pink. Sitter at bedside. Patient denies pain at this time. 21:14 Reassessment: Patient appears in no apparent distress at this time. Patient and/or cc3 family updated on plan of care and expected duration. Pain level reassessed. Patient is alert, oriented x 3, equal unlabored respirations, skin warm/dry/pink. Sitter at bedside. Patient denies pain at this time. 22:30 Reassessment: Patient appears in no apparent distress at this time. Patient sleeping, cc3 kept undisturbed. Sitter at bedside. 23:28 Reassessment: Patient appears in no apparent distress at this time. Patient sleeping cc3 comfortably, kept undisturbed. Sitter present. 12/11 00:20 Reassessment: Patient appears in no apparent distress at this time. Patient sleeping, cc3 sitter at bedside. 01:00 Reassessment: Patient appears in no apparent distress at this time. [facility] mortician supplies sales representative came and talked to the patient at bedside. Sitter present. 01:35 Reassessment: Patient appears in no apparent distress at this time. [facility] mortician supplies sales representative left the patient's room. Sitter present. 02:18 Reassessment: Patient appears in no apparent distress at this time. Patient comfortably cc3 sleeping, kept undisturbed. Sitter present. 03:30 Reassessment: Patient appears in no apparent distress at this time. Prepared the cc3 patient for incision and drainage of his left thumb to be done by Dr. Wilder. Sitter present. 04:00 Reassessment: Patient appears in no apparent distress at this time. Patient and/or cc3 family updated on plan of care and expected duration. Pain level reassessed. Dr. Wilder did incision and drainage to the cutaneous abscess of the patient's left thumb. Patient tolerated well. Wound cleaning and dressing done. 05:20 Reassessment: Patient appears in no apparent distress at this time. Patient sleeping. cc3 Sitter present. 06:08 Reassessment: Patient appears in no apparent distress at this time. Patient comfortably cc3 sleeping, kept undisturbed. Sitter present. 07:00 Reassessment: Pt resting in bed with eyes closed, respirations even and unlabored, skin aa5 is pink/warm/dry . 07:15 General: Appears comfortable, Behavior is calm, cooperative, flat, quiet. Pain: Denies aa5 pain. Neuro: Level of Consciousness is awake, alert, obeys commands, Oriented to person, place, time, situation. Cardiovascular: Heart tones S1 S2 present Rhythm is regular. Respiratory: Airway is patent Respiratory effort is even, unlabored, Respiratory pattern is regular, symmetrical, Breath sounds are clear bilaterally. GI: Abdomen is round non-distended, Bowel sounds present X 4 quads. Abd is soft and non tender X 4 quads. : No signs and/or symptoms were reported regarding the genitourinary system. EENT: No signs and/or symptoms were reported regarding the EENT system. Derm: Skin is pink, warm \\T\\ dry. Dressing noted to left thumb, VO to leave same dressing on for the first [address] Wilder unless no longer intact. Musculoskeletal: Range of motion: intact in all extremities. 07:15 Reassessment: Pt awakened easy to verbal stimuli, tolerated k-lyte well, pt notified of aa5 wait time for breakfast tray. . 08:15 Reassessment: Patient is alert, oriented x 3, equal unlabored respirations, skin aa5 warm/dry/pink. Pt sitting up in bed eating, pt tolerating well. . 09:00 Reassessment: Pt ate 100% of breakfast. Pt now resting in bed with eyes closed, aa5 respirations even and unlabored, skin is pink/warm/dry. . 10:00 Reassessment: Pt resting in bed with eyes closed, respirations even and unlabored, skin aa5 is pink/warm/dry . 11:00 Reassessment: Pt resting in bed with eyes closed, respirations even and unlabored, skin aa5 is pink/warm/dry . 11:40 Reassessment: Pt's brother at bedside, pt's brother notified of long wait time for aa5 transfer, pt's brother states "I understand it takes a long time, he was at [facility] a few months ago so we have been through this before" . 12:30 Reassessment: Patient is alert, oriented x 3, equal unlabored respirations, skin aa5 warm/dry/pink. Pt sitting up in bed eating, pt tolerating well. . 13:00 Reassessment: Pt ate 100% of lunch. Pt now resting in bed with eyes closed, aa5 respirations even and unlabored, skin is normal/warm/dry. . 14:00 Reassessment: Pt resting in bed with eyes closed, respirations even and unlabored, skin aa5 is pink/warm/dry . 15:00 Reassessment: Pt resting in bed with eyes closed, respirations even and unlabored, skin aa5 is pink/warm/dry . 16:00 Reassessment: Pt resting in bed with eyes closed, respirations even and unlabored, skin aa5 is pink/warm/dry. . 17:05 Reassessment: Pt sitting up in bed eating. . aa5 17:30 Reassessment: Patient is alert, oriented x 3, equal unlabored respirations, skin aa5 warm/dry/pink. Dressing to left thumb removed, dressing soiled with serosanguineous drainage noted, no active drainage noted at this time. Dressed wound with Bactroban, adherent dressing, gauze, and tape per MD, pt tolerated well. Pt denies pain. Redness and swelling noted to left thumb, incision site noted to tip of left thumb, small laceration below left thumb fingernail, measuring approximately 1 cm long, left thumb finger nail noted to be brownish in color, deteriorated. . 17:30 Reassessment: Pt ate 100% of dinner, pt tolerated well. . aa5 18:30 Reassessment: Pt resting in bed with eyes closed, respirations even and unlabored, skin aa5 is normal/warm/dry. . 19:30 Reassessment: Patient appears in no apparent distress at this time. No changes from previously documented assessment. Patient and/or family updated on plan of care and expected duration. Pain level reassessed. Patient is alert, oriented x 3, equal unlabored respirations, skin warm/dry/pink. Patient denies pain at this time. 20:30 Reassessment: Patient appears in no apparent distress at this time. No changes from previously documented assessment. Patient and/or family updated on plan of care and expected duration. Pain level reassessed. Patient is alert, oriented x 3, equal unlabored respirations, skin warm/dry/pink. Patient denies pain at this time. 21:30 Reassessment: Patient appears in no apparent distress at this time. No changes from previously documented assessment. Patient and/or family updated on plan of care and expected duration. Pain level reassessed. Patient is alert, oriented x 3, equal unlabored respirations, skin warm/dry/pink. Patient denies pain at this time. 22:30 Reassessment: Patient appears in no apparent distress at this time. No changes from previously documented assessment. Patient and/or family updated on plan of care and expected duration. Pain level reassessed. Patient is alert, oriented x 3, equal unlabored respirations, skin warm/dry/pink. Pt sleeping well no signs of distress noted. 23:30 Reassessment: Patient appears in no apparent distress at this time. No changes from previously documented assessment. Patient and/or family updated on plan of care and expected duration. Pain level reassessed. Patient is alert, oriented x 3, equal unlabored respirations, skin warm/dry/pink. Pt sleeping well no signs of distress noted. 12/12 00:30 Reassessment: Patient appears in no apparent distress at this time. No changes from previously documented assessment. Patient and/or family updated on plan of care and expected duration. Pain level reassessed. Patient is alert, oriented x 3, equal unlabored respirations, skin warm/dry/pink. Pt sleeping well no signs of distress noted. 01:30 Reassessment: Patient appears in no apparent distress at this time. No changes from previously documented assessment. Patient and/or family updated on plan of care and expected duration. Pain level reassessed. Patient is alert, oriented x 3, equal unlabored respirations, skin warm/dry/pink. Pt sleeping well no signs of distress noted. 02:30 Reassessment: Patient appears in no apparent distress at this time. No changes from previously documented assessment. Patient and/or family updated on plan of care and expected duration. Pain level reassessed. Patient is alert, oriented x 3, equal unlabored respirations, skin warm/dry/pink. Pt sleeping well no signs of distress noted. 03:30 Reassessment: Patient appears in no apparent distress at this time. Patient and/or jb4 family updated on plan of care and expected duration. Pain level reassessed. Patient is alert, oriented x 3, equal unlabored respirations, skin warm/dry/pink. 04:30 Reassessment: Patient appears in no apparent distress at this time. Patient and/or jb4 family updated on plan of care and expected duration. Pain level reassessed. Patient is alert, oriented x 3, equal unlabored respirations, skin warm/dry/pink. 05:30 Reassessment: Patient appears in no apparent distress at this time. Patient and/or jb4 family updated on plan of care and expected duration. Pain level reassessed. Patient is alert, oriented x 3, equal unlabored respirations, skin warm/dry/pink. 06:30 Reassessment: Patient appears in no apparent distress at this time. Patient and/or jb4 family updated on plan of care and expected duration. Pain level reassessed. Patient is alert, oriented x 3, equal unlabored respirations, skin warm/dry/pink. 07:15 Reassessment: received verbal order to receive Zosyn 3.375 mg q 6 hours until pt is em transfer per Dr. Wilder. 07:30 Reassessment: Patient appears in no apparent distress at this time. Patient and/or em family updated on plan of care and expected duration. Pain level reassessed. Patient is alert, oriented x 3, equal unlabored respirations, skin warm/dry/pink. denies wanting to hurt himself, also denies hearing voices, pending accepting facility, sitter at bedside. 08:15 Reassessment: tolerated breakfast tray, ate 100%, laid back in bed. em 09:30 Reassessment: Patient appears in no apparent distress at this time. Patient and/or em family updated on plan of care and expected duration. Pain level reassessed. Patient is alert, oriented x 3, equal unlabored respirations, skin warm/dry/pink. 11:30 Reassessment: Patient appears in no apparent distress at this time. Patient and/or em family updated on plan of care and expected duration. Pain level reassessed. Patient is alert, oriented x 3, equal unlabored respirations, skin warm/dry/pink. 12:00 Reassessment: brother at bedside. em 13:30 Reassessment: Patient appears in no apparent distress at this time. Patient and/or em family updated on plan of care and expected duration. Pain level reassessed. Patient is alert, oriented x 3, equal unlabored respirations, skin warm/dry/pink. 15:30 Reassessment: Patient appears in no apparent distress at this time. Patient and/or em family updated on plan of care and expected duration. Pain level reassessed. Patient is alert, oriented x 3, equal unlabored respirations, skin warm/dry/pink. 17:53 Reassessment: Patient appears in no apparent distress at this time. No changes from em previously documented assessment. Patient is alert, oriented x 3, equal unlabored respirations, skin warm/dry/pink. reports feeling better, asked if it is possible to go home, notified of facility unavailability. 18:20 Reassessment: redressed left thumb with Neosporin, Adaptic and Coban, tolerated well. em 19:23 General: Appears in no apparent distress. comfortable, Behavior is calm, cooperative, jd3 appropriate for age. Pain: Denies pain. Neuro: Level of Consciousness is awake, alert, obeys commands, Oriented to person, place, time, situation. Cardiovascular: Denies chest pain, Capillary refill < 3 seconds Patient's skin is warm and dry. Respiratory: Airway is patent Respiratory effort is even, unlabored, Respiratory pattern is regular, symmetrical, Denies cough, shortness of breath. GI: No signs and/or symptoms were reported involving the gastrointestinal system. : No signs and/or symptoms were reported regarding the genitourinary system. EENT: No signs and/or symptoms were reported regarding the EENT system. Derm: Skin is intact, Skin is dry, Skin is normal, Skin temperature is warm Wound noted left thumb Wound is wound is dressed. clean dressing noted. continued order for Zosyn 3.375 grams Q 6 H continued until transfer per Dr. Wilder. Musculoskeletal: Circulation, motion, and sensation intact. Range of motion: intact in all extremities. 20:00 Reassessment: Patient appears in no apparent distress at this time. Patient and/or jd3 family updated on plan of care and expected duration. Pain level reassessed. Patient is alert, oriented x 3, equal unlabored respirations, skin warm/dry/pink. Patient denies pain at this time. 21:00 Reassessment: Patient appears in no apparent distress at this time. Patient and/or jd3 family updated on plan of care and expected duration. Pain level reassessed. Patient is alert, oriented x 3, equal unlabored respirations, skin warm/dry/pink. awaiting accepting facility. Patient denies pain at this time. 22:00 Reassessment: Patient appears in no apparent distress at this time. Patient and/or jd3 family updated on plan of care and expected duration. Pain level reassessed. Patient is alert, oriented x 3, equal unlabored respirations, skin warm/dry/pink. Patient denies pain at this time. 23:00 Reassessment: Patient appears in no apparent distress at this time. Patient and/or jd3 family updated on plan of care and expected duration. Pain level reassessed. Patient is alert, oriented x 3, equal unlabored respirations, skin warm/dry/pink. Patient denies pain at this time. 12/13 00:00 Reassessment: Patient appears in no apparent distress at this time. Patient and/or jd3 family updated on plan of care and expected duration. Pain level reassessed. Patient is alert, oriented x 3, equal unlabored respirations, skin warm/dry/pink. Patient denies pain at this time. 00:50 Reassessment: medicated with Q 6 H Zosyn until leaving per order of Dr. Wilder. jd3 01:00 Reassessment: Patient and/or family updated on plan of care and expected duration. Pain jd3 level reassessed. Patient is alert, oriented x 3, equal unlabored respirations, skin warm/dry/pink. pt resting in bed with eyes closed, even and unlabored respirations. sitter at bedside. no distress noted at this time. Patient denies pain at this time. 02:00 Reassessment: Patient appears in no apparent distress at this time. No changes from jd3 previously documented assessment. Patient and/or family updated on plan of care and expected duration. Pain level reassessed. Patient is alert, oriented x 3, equal unlabored respirations, skin warm/dry/pink. 03:00 Reassessment: Patient appears in no apparent distress at this time. No changes from jd3 previously documented assessment. Patient and/or family updated on plan of care and expected duration. Pain level reassessed. Patient is alert, oriented x 3, equal unlabored respirations, skin warm/dry/pink. 04:00 Reassessment: Patient appears in no apparent distress at this time. Patient and/or jd3 family updated on plan of care and expected duration. Pain level reassessed. Patient is alert, oriented x 3, equal unlabored respirations, skin warm/dry/pink. Patient denies pain at this time. 04:02 Reassessment: [facility] at bedside. jd3 05:00 Reassessment: Patient appears in no apparent distress at this time. Patient and/or jd3 family updated on plan of care and expected duration. Pain level reassessed. Patient is alert, oriented x 3, equal unlabored respirations, skin warm/dry/pink. pt resting with eyes closed with even and unlabored respirations, sitter at bedside. 06:00 Reassessment: Patient appears in no apparent distress at this time. No changes from jd3 previously documented assessment. Patient and/or family updated on plan of care and expected duration. Pain level reassessed. Patient is alert, oriented x 3, equal unlabored respirations, skin warm/dry/pink. 06:47 Reassessment: Zosyn 3.[address] Wilder's order for Zosyn 3.375 grams Q6H jd3 until leaving. 07:15 Reassessment: Patient appears in no apparent distress at this time. Patient and/or em family updated on plan of care and expected duration. Pain level reassessed. Patient is alert, oriented x 3, equal unlabored respirations, skin warm/dry/pink. Patient denies pain at this time. Patient states feeling better. Patient states symptoms have improved. 08:30 Reassessment: breakfast tray given, ate 100%, tolerated well. em 09:30 Reassessment: Patient appears in no apparent distress at this time. Patient and/or em family updated on plan of care and expected duration. Pain level reassessed. Patient is alert, oriented x 3, equal unlabored respirations, skin warm/dry/pink. 11:30 Reassessment: Patient appears in no apparent distress at this time. Patient and/or em family updated on plan of care and expected duration. Pain level reassessed. Patient is alert, oriented x 3, equal unlabored respirations, skin warm/dry/pink. 12:30 Reassessment: lunch tray given, ate 100%, tolerated well. em 13:30 Reassessment: Patient appears in no apparent distress at this time. Patient and/or em family updated on plan of care and expected duration. Pain level reassessed. Patient is alert, oriented x 3, equal unlabored respirations, skin warm/dry/pink. 15:30 Reassessment: Patient appears in no apparent distress at this time. Patient and/or em family updated on plan of care and expected duration. Pain level reassessed. Patient is alert, oriented x 3, equal unlabored respirations, skin warm/dry/pink. Patient denies pain at this time. Patient states feeling better. 19:00 General: Appears in no apparent distress. comfortable, Behavior is calm, cooperative, jd3 appropriate for age. Pain: Denies pain. Neuro: Level of Consciousness is awake, alert, obeys commands, Oriented to person, place, time, situation. Cardiovascular: Capillary refill < 3 seconds Patient's skin is warm and dry. Respiratory: Airway is patent Respiratory effort is even, unlabored, Respiratory pattern is regular, symmetrical. GI: No signs and/or symptoms were reported involving the gastrointestinal system. : No signs and/or symptoms were reported regarding the genitourinary system. EENT: No signs and/or symptoms were reported regarding the EENT system. Derm: Skin is intact, Skin is dry, Skin is normal, Skin temperature is warm Wound noted left thumb Wound is dressed in gauze. pt denies pain. Musculoskeletal: Circulation, motion, and sensation intact. Range of motion: intact in all extremities. 20:00 Reassessment: Patient appears in no apparent distress at this time. No changes from jd3 previously documented assessment. Patient and/or family updated on plan of care and expected duration. Pain level reassessed. Patient is alert, oriented x 3, equal unlabored respirations, skin warm/dry/pink. 21:00 Reassessment: Patient appears in no apparent distress at this time. Patient and/or jd3 family updated on plan of care and expected duration. Pain level reassessed. Patient is alert, oriented x 3, equal unlabored respirations, skin warm/dry/pink. 22:00 Reassessment: Patient appears in no apparent distress at this time. No changes from jd3 previously documented assessment. Patient and/or family updated on plan of care and expected duration. Pain level reassessed. Patient is alert, oriented x 3, equal unlabored respirations, skin warm/dry/pink. given a sandwich. 23:00 Reassessment: Patient appears in no apparent distress at this time. Patient and/or jd3 family updated on plan of care and expected duration. Pain level reassessed. Patient is alert, oriented x 3, equal unlabored respirations, skin warm/dry/pink. pt resting in bed with sitter at bedside. denies pain. 12/14 00:00 Reassessment: Patient appears in no apparent distress at this time. Patient and/or jd3 family updated on plan of care and expected duration. Pain level reassessed. Patient is alert, oriented x 3, equal unlabored respirations, skin warm/dry/pink. pt resting in bed with eyes closed, even and unlabored respirations, sitter at bedside. 01:00 Reassessment: Patient appears in no apparent distress at this time. No changes from jd3 previously documented assessment. Patient and/or family updated on plan of care and expected duration. Pain level reassessed. Patient is alert, oriented x 3, equal unlabored respirations, skin warm/dry/pink. 01:15 Reassessment: medicated with Zosyn 3.375 grams per order for Zosyn 3.375 grams Q6H jd3 until leaving by Dr. Wilder. 02:00 Reassessment: Patient appears in no apparent distress at this time. No changes from [facility] previously documented assessment. Patient and/or family updated on plan of care and expected duration. Pain level reassessed. Patient is alert, oriented x 3, equal unlabored respirations, skin warm/dry/pink. 03:00 Reassessment: Patient appears in no apparent distress at this time. No changes from jd3 previously documented assessment. Patient and/or family updated on plan of care and expected duration. Pain level reassessed. Patient is alert, oriented x 3, equal unlabored respirations, skin warm/dry/pink. 04:00 Reassessment: Patient appears in no apparent distress at this time. No changes from j previously documented assessment. Patient and/or family updated on plan of care and expected duration. Pain level reassessed. Patient is alert, oriented x 3, equal unlabored respirations, skin warm/dry/pink. 05:00 Reassessment: Patient appears in no apparent distress at this time. No changes from j previously documented assessment. Patient and/or family updated on plan of care and expected duration. Pain level reassessed. Patient is alert, oriented x 3, equal unlabored respirations, skin warm/dry/pink. 06:00 Reassessment: Patient appears in no apparent distress at this time. No changes from [facility] previously documented assessment. Patient and/or family updated on plan of care and expected duration. Pain level reassessed. Patient is alert, oriented x 3, equal unlabored respirations, skin warm/dry/pink. 06:39 Reassessment: verbal order from Dr. Wilder to continue Zosyn 3.375 grams Q6H until pt jd3 leaves ER. 07:26 Reassessment: Patient appears in no apparent distress at this time. Patient and/or ch family updated on plan of care and expected duration. Pain level reassessed. Patient is alert, oriented x 3, equal unlabored respirations, skin warm/dry/pink. Patient denies pain at this time. Patient states symptoms have improved. Neuro: No deficits noted. Respiratory: Airway is patent Respiratory effort is even, unlabored, Respiratory pattern is regular, Breath sounds with wheezes bilaterally. pt states he is always wheezy. GI: No signs and/or symptoms were reported involving the gastrointestinal system. 07:59 Reassessment: Patient appears in no apparent distress at this time. Patient and/or family updated on plan of care and expected duration. Pain level reassessed. Patient is alert, oriented x 3, equal unlabored respirations, skin warm/dry/pink. 09:00 General: Appears in no apparent distress. comfortable, Behavior is calm, cooperative. ch Derm: Wound noted left thumb and left thumbnail and dorsal aspect of distal phalanx of left thumb Wound is slightly swollen and slightly raw around edges of finger. pt wound dressed with adaptic and gauze. 09:21 Reassessment: Patient appears in no apparent distress at this time. nurse to nurse report given to [facility]. 10:00 Reassessment: Patient appears in no apparent distress at this time. No changes from previously documented assessment. Patient and/or family updated on plan of care and expected duration. Pain level reassessed. Patient is alert, oriented x 3, equal unlabored respirations, skin warm/dry/pink. 11:00 Reassessment: Patient appears in no apparent distress at this time. No changes from previously documented assessment. Patient and/or family updated on plan of care and expected duration. Pain level reassessed. Patient is alert, oriented x 3, equal unlabored respirations, skin warm/dry/pink. 12:00 Reassessment: Patient appears in no apparent distress at this time. No changes from previously documented assessment. Patient and/or family updated on plan of care and expected duration. Pain level reassessed. Patient is alert, oriented x 3, equal unlabored respirations, skin warm/dry/pink. pt has eaten all of his lunch. pt verb understanding of transfer. 13:00 Reassessment: Patient appears in no apparent distress at this time. No changes from previously documented assessment. Patient and/or family updated on plan of care and expected duration. Pain level reassessed. Patient is alert, oriented x 3, equal unlabored respirations, skin warm/dry/pink. 14:00 Reassessment: Patient appears in no apparent distress at this time. No changes from previously documented assessment. Patient and/or family updated on plan of care and expected duration. Pain level reassessed. Patient is alert, oriented x 3, equal unlabored respirations, skin warm/dry/pink. 14:41 Reassessment: Patient appears in no apparent distress at this time. Patient and/or ch family updated on plan of care and expected duration. Pain level reassessed. Patient is alert, oriented x 3, equal unlabored respirations, skin warm/dry/pink. pt in Mental Health deputy custody for transfer. no s/s of distress. resps even and unlabored. pt calls his family to notify them. Psych: 12/10 09:30 Subjective: Patient's mood is hopeless, Delusions are denied, Hallucinations are jl7 auditory, Having thoughts of Pt denies being suicidal/homicidal but reports voices telling him to tie shoelaces around his throat. Objective: Patient is cooperative, using poor eye contact, Speech is normal, Affect is flat. Interventions: Removed personal items and placed in bag. Patient placed in hospital gown. Searched person for dangerous items. Belonging list filled out. Pt unable to provide urine at this time, will collect after fluids are done infusing. Suicide Risk Assessment: Sad Person Scale: Sex of patient: Male: Score 1 point. Age of patient: Score 0 point if patient falls outside of specified age parameters. Depression: Score 1 point if signs of depression are present. Previous Attempt: Score 1 point if patient has previously attempted suicide. Substance Abuse: Score 1 point if patient abuses alcohol or drugs. Rational Thinking: Score 1 point if patient is lacking rational thinking. Social Support: Score 1 point if social support is lacking and/or unavailable. Organized Plan: Score 0 if patient did not have an organized plan in place. Relationship: Score 1 point if patient is , , , or for a single male Chronic Sickness: Score 1 point if patient has illness, chronic, debilitating, or severe. TOTAL POINTS: If total points are 7-10, the proposed clinical action is to hospitalize or commit. Implement suicide precautions. Safety Checks: Personal items have been removed. Door is open. No visitors are present at this time. Sitter at bedside. Patient uses 18 pack of beer, daily. Last use was 2 days ago. Patient does not have a history of DTs. 12/11 09:00 Commitment: Patient will be a voluntary commitment. aa5 Vital Signs: 12/10 09:27 BP 145 / 106; Pulse 75; Resp 15 S; Temp 98.3(O); Pulse Ox 100% on R/A; Weight 90.72 kg jl7 (R); Height 6 ft. (182.88 cm) (R); Pain 0/10; 13:15 BP 119 / 84; Pulse 84; Resp 18; Temp 98.8; Pulse Ox 97% on R/A; kj1 17:00 BP 136 / 79; Pulse 82; Resp 18; Temp 98.5; Pulse Ox 100% on R/A; kj1 21:17 BP 153 / 82; Pulse 46; Resp 18; Temp 98.4; Pulse Ox 100% on R/A; jd2 23:07 Pulse 89; Resp 20; Pulse Ox 99% on R/A; jd2 12/11 04:00 BP 130 / 79; Pulse 84; Resp 18; Temp 98.8(TE); Pulse Ox 100% on R/A; oe 07:00 BP 149 / 98; Pulse 84; Resp 18; Temp 97.7(TE); Pulse Ox 99% on R/A; oe 11:00 BP 132 / 81; Pulse 92; Resp 16; Temp 98.0(O); Pulse Ox 100% on R/A; dh3 17:21 BP 135 / 88; Pulse 98; Resp 16; Temp 98.1(O); Pulse Ox 100% on R/A; dh3 20:00 BP 148 / 87; vo1 20:00 Pulse 86; Resp 16; Temp 98.7(O); Pulse Ox 100% ; vo1 12/12 00:00 BP 144 / 84; Pulse 85; Resp 18; Temp 97.9(O); Pulse Ox 100% ; vo1 04:00 Pulse 80; vo1 04:00 BP 128 / 82; Pulse 80; Resp 16; Temp 97; Pulse Ox 100% ; vo1 08:00 BP 144 / 66; Pulse 79; Resp 18; Temp 97.4; Pulse Ox 100% ; mp1 12:00 BP 132 / 72; Pulse 86; Resp 18; Temp 97; Pulse Ox 98% ; mp1 15:54 BP 139 / 81; Pulse 91; Resp 16; Temp 97.6; Pulse Ox 99% ; mp1 19:56 BP 147 / 69; Pulse 90; Resp 16 S; Temp 97.9(O); Pulse Ox 97% on R/A; Pain 0/10; jd3 12/13 00:12 BP 127 / 77; Pulse 71; Resp 18; Temp 98.0; Pulse Ox 99% ; td 04:13 BP 140 / 88; Pulse 104; Resp 20; Temp 98.4; Pulse Ox 100% ; td 07:02 BP 168 / 101; Pulse 117; Resp 20; Temp 97.9; Pulse Ox 100% ; td 07:15 BP 136 / 78; Pulse 100; Resp 18; Temp 98.5; Pulse Ox 99% on R/A; kj1 11:00 BP 136 / 87; Pulse 81; Resp 18; Temp 98.5; Pulse Ox 100% on R/A; kj1 16:31 BP 132 / 78; Pulse 82; Resp 18; Temp 98.3(TE); Pulse Ox 99% on R/A; mh5 20:00 BP 134 / 81; Pulse 92; Resp 18; Temp 98.2; Pulse Ox 100% on R/A; Pain 0/10; aa8 12/14 00:00 BP 137 / 95; Pulse 86; Resp 16; Temp 98.5; Pulse Ox 98% on R/A; Pain 0/10; aa8 04:00 BP 158 / 98; Pulse 80; Resp 18; Temp 98.6; Pulse Ox 100% on R/A; Pain 0/10; aa8 11:20 BP 144 / 88; Pulse 77; Resp 17; Pulse Ox 99% on R/A; jb1 14:21 BP 129 / 79; Pulse 83; Resp 18; Temp 98.4(O); Pulse Ox 99% on R/A; jb1 12/10 09:27 Body Mass Index 27.12 (90.72 kg, 182.88 cm) 7 ED Course: 12/10 09:08 Patient arrived in ED. am2 09:18 Vidal Nur PA is PHCP. jr8 09:18 Prosper Landaverde MD is Attending Physician. jr8 09:22 Soo Prater RN is Primary Nurse. jl7 09:25 Triage completed. jl7 09:25 Safety checks: Items removed: yes. Door open/sign placed on door: yes. Family/friend mb4 present: no. 09:25 Contacted security to obtain patient belongings. Two belongings bags were collected mb4 from the patient. The patient verbally denied having personal items, including money, in the clothing pockets. Two bags were labeled with patient sticker prior to security arrival. 09:27 Arm band placed on right wrist. jl7 09:39 Inserted saline lock: 20 gauge in left hand, using aseptic technique. ,using aseptic mb4 technique. IV inserted by MARGARITA Eldridge RN student. Student assisted by her preceptor NORAH Marley Blood collected. 09:41 Initial lab(s) drawn, sent to lab. Eye irrigation Patient tolerated well. Right and mb4 left eye irrigated by MARGARITA Eldridge RN student. Student assisted by preceptor NORAH Marley. 09:42 Safety checks: Items removed: yes. Door open/sign placed on door: yes. Family/friend mb4 present: no. Sitter present: Yes. Bed in low position. 10:09 Lab(s) recollected, by me, held in ED. mb4 10:17 Safety checks: Items removed: yes. Door open/sign placed on door: yes. Family/friend mb4 present: no. Sitter present: Yes. 10:30 Safety checks: Items removed: yes. Door open/sign placed on door: yes. Family/friend mb4 present: no. Sitter present: Yes. Bed in low position. 10:31 Diet: Patient given cola. Tolerated well. Waiting for diet tray to arrive. mb4 10:45 Safety checks: Items removed: yes. Door open/sign placed on door: yes. Family/friend mb4 present: no. Sitter present: Yes. 11:00 Safety checks: Items removed: yes. Door open/sign placed on door: yes. Family/friend mb4 present: no. Sitter present: Yes. 11:15 Safety checks: Items removed: yes. Door open/sign placed on door: yes. Family/friend mb4 present: no. Sitter present: Yes. 11:30 Safety checks: Items removed: yes. Door open/sign placed on door: yes. Family/friend mb4 present: no. Sitter present: Yes. 11:46 Safety checks: Items removed: yes. Door open/sign placed on door: yes. Family/friend mb4 present: no. Sitter present: Yes. 11:53 Diet: Patient given cola poured into styrofoam cup.. mb4 12:04 Safety checks: Items removed: yes. Door open/sign placed on door: yes. Family/friend mb4 present: no. Sitter present: Yes. 12:15 Safety checks: Items removed: yes. Door open/sign placed on door: yes. Family/friend kj1 present: no. Sitter present: Yes. 12:30 Safety checks: Items removed: yes. Door open/sign placed on door: yes. Family/friend kj1 present: no. Sitter present: Yes. 12:30 Diet: Patient given a regular meal tray. Tolerated well. kj1 12:45 Safety checks: Items removed: yes. Door open/sign placed on door: yes. Family/friend kj1 present: no. Sitter present: Yes. 13:00 Safety checks: Items removed: yes. Door open/sign placed on door: yes. Family/friend kj1 present: no. Sitter present: Yes. 13:15 Safety checks: Items removed: yes. Door open/sign placed on door: yes. Family/friend kj1 present: no. Sitter present: Yes. 13:18 Urine collected: clean catch specimen, cloudy, sent to lab. mb4 13:30 Safety checks: Items removed: yes. Door open/sign placed on door: yes. Family/friend kj1 present: no. Sitter present: Yes. 13:45 Safety checks: Items removed: yes. Door open/sign placed on door: yes. Family/friend kj1 present: no. Sitter present: Yes. 14:00 Safety checks: Items removed: yes. Door open/sign placed on door: yes. Family/friend kj1 present: no. Sitter present: Yes. 14:15 Safety checks: Items removed: yes. Door open/sign placed on door: yes. Family/friend kj1 present: no. Sitter present: Yes. 14:25 spoke with Bonnie from [facility], due to the bad weather in the area she will be bd delayed in coming out to evaluate the patient, will possibly be sometime tomorrow 12/11, before anyone comes to evaluate the patient. She will however call [facility] and get the patient on the waiting list for admission. 14:29 faxed chart to [facility], [facility], and [facility]. 14:30 Safety checks: Items removed: yes. Door open/sign placed on door: yes. Family/friend kj1 present: no. Sitter present: Yes. 14:44 Safety checks: Items removed: yes. Door open/sign placed on door: yes. Family/friend mb4 present: no. Sitter present: Yes. 15:00 Safety checks: Items removed: yes. Door open/sign placed on door: yes. Family/friend kj1 present: no. Sitter present: Yes. 15:15 Safety checks: Items removed: yes. Door open/sign placed on door: yes. Family/friend kj1 present: no. Sitter present: Yes. 15:30 Safety checks: Items removed: yes. Door open/sign placed on door: yes. Family/friend kj1 present: no. Sitter present: Yes. 15:45 Safety checks: Items removed: yes. Door open/sign placed on door: yes. Family/friend kj1 present: no. Sitter present:. 16:00 Safety checks: Items removed: yes. Door open/sign placed on door: yes. Family/friend kj1 present: no. Sitter present: Yes. 16:15 Safety checks: Items removed: yes. Door open/sign placed on door: yes. Family/friend kj1 present: no. Sitter present: Yes. 16:30 Safety checks: Items removed: yes. Door open/sign placed on door: yes. Family/friend kj1 present: no. Sitter present: Yes. 16:45 Safety checks: Items removed: yes. Door open/sign placed on door: yes. Family/friend kj1 present: no. Sitter present: Yes. 16:58 Diet: Patient given snack. Tolerated well. kj1 17:00 Safety checks: Items removed: yes. Door open/sign placed on door: yes. Family/friend kj1 present: no. Sitter present: Yes. 17:15 Safety checks: Items removed: yes. Door open/sign placed on door: yes. Family/friend kj1 present: no. Sitter present: Yes. 17:30 Safety checks: Items removed: yes. Door open/sign placed on door: yes. Family/friend kj1 present: no. Sitter present: Yes. 17:45 Safety checks: Items removed: yes. Door open/sign placed on door: yes. Family/friend kj1 present: yes. Sitter present: Yes. 18:00 Safety checks: Items removed: yes. Door open/sign placed on door: yes. Family/friend kj1 present: no. Sitter present: Yes. 18:15 Safety checks: Items removed: yes. Door open/sign placed on door: yes. Family/friend kj1 present: yes. Family/friends encouraged to stay with patient. Sitter present: Yes. 18:30 Safety checks: Items removed: yes. Door open/sign placed on door: yes. Family/friend kj1 present: no. Sitter present: Yes. 18:30 Diet: Patient given a regular meal tray. Tolerated well. kj1 18:45 Safety checks: Items removed: yes. Door open/sign placed on door: yes. Family/friend kj1 present: no. Sitter present: Yes. 19:00 Safety checks: Items removed: yes. Door open/sign placed on door: yes. Family/friend kj1 present: no. Sitter present: Yes. 19:16 Safety checks: Items removed: yes. Door open/sign placed on door: yes. Family/friend jd2 present: no. Sitter present: Yes. 19:30 Safety checks: Items removed: yes. Door open/sign placed on door: yes. Family/friend jd2 present: no. Sitter present: Yes. 19:45 Safety checks: Items removed: yes. Door open/sign placed on door: yes. Family/friend jd2 present: no. Sitter present: Yes. 20:00 Safety checks: Items removed: yes. Door open/sign placed on door: yes. Family/friend jd2 present: yes. no. Sitter present: Yes. 20:15 Safety checks: Items removed: yes. Door open/sign placed on door: yes. Family/friend jd2 present: no. Sitter present: Yes. 20:30 Safety checks: Items removed: yes. Door open/sign placed on door: yes. Family/friend jd2 present: no. Sitter present: Yes. 20:45 Safety checks: Items removed: yes. Door open/sign placed on door: yes. Family/friend jd2 present: no. Sitter present: Yes. 21:00 Safety checks: Items removed: yes. Door open/sign placed on door: yes. Family/friend jd2 present: no. Sitter present: Yes. 21:15 Safety checks: Items removed: yes. Door open/sign placed on door: yes. Family/friend jd2 present: no. Sitter present: Yes. 21:30 Safety checks: Items removed: yes. Door open/sign placed on door: yes. Family/friend jd2 present: no. Sitter present: Yes. 21:45 Safety checks: Items removed: yes. Door open/sign placed on door: yes. Family/friend jd2 present: no. Sitter present: Yes. 22:00 Safety checks: Items removed: yes. Door open/sign placed on door: yes. Family/friend jd2 present: no. Sitter present: Yes. 22:15 Safety checks: Items removed: yes. Door open/sign placed on door: yes. Family/friend jd2 present: no. Sitter present: Yes. 22:30 Safety checks: Items removed: yes. Door open/sign placed on door: yes. Family/friend jd2 present: no. Sitter present: Yes. 22:45 Safety checks: Items removed: yes. Door open/sign placed on door: yes. Family/friend jd2 present: no. Sitter present: Yes. 23:00 Safety checks: Items removed: yes. Door open/sign placed on door: yes. Family/friend jd2 present: no. Sitter present: Yes. 23:15 Safety checks: Items removed: yes. Door open/sign placed on door: yes. Family/friend jd2 present: no. Sitter present: Yes. 23:30 Safety checks: Items removed: yes. Door open/sign placed on door: yes. Family/friend jd2 present: no. Sitter present: Yes. 23:45 Safety checks: Items removed: yes. Door open/sign placed on door: yes. Family/friend jd2 present: no. Sitter present: Yes. 12/11 00:00 Safety checks: Items removed: yes. Door open/sign placed on door: yes. Family/friend jd2 present: no. Sitter present: Yes. 00:15 Safety checks: Items removed: yes. Door open/sign placed on door: yes. Family/friend jd2 present: no. Sitter present: Yes. 00:30 Safety checks: Items removed: yes. Door open/sign placed on door: yes. Family/friend jd2 present: no. Sitter present: Yes. 00:45 Safety checks: Items removed: yes. Door open/sign placed on door: yes. Family/friend jd2 present: no. Sitter present: Yes. 01:00 Safety checks: Items removed: yes. Door open/sign placed on door: yes. Family/friend jd2 present: no. Sitter present: Yes. 01:15 Safety checks: Items removed: yes. Door open/sign placed on door: yes. Family/friend jd2 present: Other: [facility] Sitter present: Yes. 01:30 Safety checks: Items removed: yes. Door open/sign placed on door: yes. Family/friend jd2 present: no. Sitter present: Yes. 01:45 Safety checks: Items removed: yes. Door open/sign placed on door: yes. Family/friend jd2 present: no. Sitter present: Yes. 02:00 Safety checks: Items removed: yes. Door open/sign placed on door: yes. Family/friend jd2 present: no. Sitter present: Yes. 02:15 Safety checks: Items removed: yes. Door open/sign placed on door: yes. Family/friend oe present: no. Sitter present: Yes. 02:30 Safety checks: Items removed: yes. Door open/sign placed on door: yes. Family/friend oe present: no. Sitter present: Yes. 02:45 Safety checks: Items removed: yes. Door open/sign placed on door: yes. Family/friend oe present: no. Sitter present: Yes. 03:00 Safety checks: Items removed: yes. Door open/sign placed on door: yes. Family/friend oe present: no. Sitter present: Yes. 03:15 Safety checks: Items removed: yes. Door open/sign placed on door: yes. Family/friend oe present: no. Sitter present: Yes. 03:30 Safety checks: Items removed: yes. Door open/sign placed on door: yes. Family/friend oe present: no. Sitter present: Yes. 03:45 Safety checks: Items removed: yes. Door open/sign placed on door: yes. Family/friend oe present: no. Sitter present: Yes. 04:00 Safety checks: Items removed: yes. Door open/sign placed on door: yes. Family/friend oe present: no. Sitter present: Yes. 04:00 Assist provider with I \\T\\ D: of an abscess on left thumb Set up I\\T\\D tray. Performed by cc 3 Alvino Wilder MD Dressing with 4X4s, bactroban ointment, adaptic Patient tolerated well. 04:15 Safety checks: Items removed: yes. Door open/sign placed on door: yes. Family/friend oe present: no. Sitter present: Yes. 04:30 Safety checks: Items removed: yes. Door open/sign placed on door: yes. Family/friend oe present: no. Sitter present: Yes. 04:45 Safety checks: Items removed: yes. Door open/sign placed on door: yes. Family/friend oe present: no. Sitter present: Yes. 05:00 Safety checks: Items removed: yes. Door open/sign placed on door: yes. Family/friend oe present: no. Sitter present: Yes. 05:15 Safety checks: Items removed: yes. Door open/sign placed on door: yes. Family/friend oe present: no. Sitter present: Yes. 05:30 Safety checks: Items removed: yes. Door open/sign placed on door: yes. Family/friend oe present: no. Sitter present: Yes. 05:45 Safety checks: Items removed: yes. Door open/sign placed on door: yes. Family/friend oe present: no. Sitter present: Yes. 06:00 Safety checks: Items removed: yes. Door open/sign placed on door: yes. Family/friend oe present: no. Sitter present: Yes. 06:15 Safety checks: Items removed: yes. Door open/sign placed on door: yes. Family/friend oe present: no. Sitter present: Yes. 06:30 Safety checks: Items removed: yes. Door open/sign placed on door: yes. Family/friend oe present: no. Sitter present: Yes. 06:45 Safety checks: Items removed: yes. Door open/sign placed on door: yes. Family/friend oe present: no. Sitter present: Yes. 07:00 Safety checks: Items removed: yes. Door open/sign placed on door: yes. Family/friend oe present: no. Sitter present: Yes. 07:00 Report given to NORAH James. 3 07:00 Report received from NORAH Cunningham. aa5 07:15 Safety checks: Items removed: yes. Door open/sign placed on door: yes. Family/friend dh3 present: no. Sitter present: Yes. 07:30 Safety checks: Items removed: yes. Door open/sign placed on door: yes. Family/friend dh3 present: no. Sitter present: Yes. 07:31 Primary Nurse role handed off by Soo Prater RN 07:45 Safety checks: Items removed: yes. Door open/sign placed on door: yes. Family/friend dh3 present: no. Sitter present: Yes. 08:00 Safety checks: Items removed: yes. Door open/sign placed on door: yes. Family/friend dh3 present: no. Sitter present: Yes. 08:04 Diet: Patient given a regular meal tray. 3 08:15 Safety checks: Items removed: yes. Door open/sign placed on door: yes. Family/friend dh3 present: no. Sitter present: Yes. 08:15 Repeat lab(s) drawn. by me, sent to lab. 3 08:30 Safety checks: Items removed: yes. Door open/sign placed on door: yes. Family/friend dh3 present: no. Sitter present: Yes. 08:41 Erika Díaz RN is Primary Nurse. [facility] 08:45 Safety checks: Items removed: yes. Door open/sign placed on door: yes. Family/friend dh3 present: no. Sitter present: Yes. 09:00 Safety checks: Items removed: yes. Door open/sign placed on door: yes. Family/friend dh3 present: no. Sitter present: Yes. 09:15 Safety checks: Items removed: yes. Door open/sign placed on door: yes. Family/friend dh3 present: no. Sitter present: Yes. 09:30 Safety checks: Items removed: yes. Door open/sign placed on door: yes. Family/friend dh3 present: no. Sitter present: Yes. 09:45 Safety checks: Items removed: yes. Door open/sign placed on door: yes. Family/friend dh3 present: no. Sitter present: Yes. 10:00 Safety checks: Items removed: yes. Door open/sign placed on door: yes. Family/friend dh3 present: no. Sitter present: Yes. 10:15 Safety checks: Items removed: yes. Door open/sign placed on door: yes. Family/friend dh3 present: no. Sitter present: Yes. 10:30 Safety checks: Items removed: yes. Door open/sign placed on door: yes. Family/friend dh3 present: no. Sitter present: Yes. 10:45 Safety checks: Items removed: yes. Door open/sign placed on door: yes. Family/friend dh3 present: no. Sitter present: Yes. 11:00 Safety checks: Items removed: yes. Door open/sign placed on door: yes. Family/friend dh3 present: no. Sitter present: Yes. 11:15 Safety checks: Items removed: yes. Door open/sign placed on door: yes. Family/friend dh3 present: no. Sitter present: Yes. 11:30 Safety checks: Items removed: yes. Door open/sign placed on door: yes. Family/friend dh3 present: no. Sitter present: Yes. 11:45 Safety checks: Items removed: yes. Door open/sign placed on door: yes. Family/friend dh3 present: yes. Family/friends encouraged to stay with patient. Sitter present: Yes. 12:00 Safety checks: Items removed: yes. Door open/sign placed on door: yes. Family/friend dh3 present: no. Sitter present: Yes. 12:15 Safety checks: Items removed: yes. Door open/sign placed on door: yes. Family/friend dh3 present: no. Sitter present: Yes. 12:18 Diet: Patient given a regular meal tray. dh3 12:30 Safety checks: Items removed: yes. Door open/sign placed on door: yes. Family/friend dh3 present: no. Sitter present: Yes. 12:45 Safety checks: Items removed: yes. Door open/sign placed on door: yes. Family/friend dh3 present: no. Sitter present: Yes. 13:00 Safety checks: Items removed: yes. Door open/sign placed on door: yes. Family/friend dh3 present: no. Sitter present: Yes. 13:15 Safety checks: Items removed: yes. Door open/sign placed on door: yes. Family/friend lt1 present: no. Sitter present: Yes. 13:30 Safety checks: Items removed: yes. Door open/sign placed on door: yes. Family/friend lt1 present: no. Sitter present: Yes. 13:45 Safety checks: Items removed: yes. Door open/sign placed on door: yes. Family/friend lt1 present: no. Sitter present: Yes. 14:00 Safety checks: Items removed: yes. Door open/sign placed on door: yes. Family/friend dh3 present: no. Sitter present: Yes. 14:15 Safety checks: Items removed: yes. Door open/sign placed on door: yes. Family/friend dh3 present: no. Sitter present: Yes. 14:30 Safety checks: Items removed: yes. Door open/sign placed on door: yes. Family/friend dh3 present: no. Sitter present: Yes. 14:45 Safety checks: Items removed: yes. Door open/sign placed on door: yes. Family/friend dh3 present: no. Sitter present: Yes. 15:00 Safety checks: Items removed: yes. Door open/sign placed on door: yes. Family/friend dh3 present: no. Sitter present: Yes. 15:15 Safety checks: Items removed: yes. Door open/sign placed on door: yes. Family/friend dh3 present: no. Sitter present: Yes. 15:30 Safety checks: Items removed: yes. Door open/sign placed on door: yes. Family/friend dh3 present: no. Sitter present: Yes. 15:45 Safety checks: Items removed: yes. Door open/sign placed on door: yes. Family/friend dh3 present: no. Sitter present: Yes. 16:00 Safety checks: Items removed: yes. Door open/sign placed on door: yes. Family/friend dh3 present: no. Sitter present: Yes. 16:15 Safety checks: Items removed: yes. Door open/sign placed on door: yes. Family/friend dh3 present: no. Sitter present: Yes. 16:30 Safety checks: Items removed: yes. Door open/sign placed on door: yes. Family/friend dh3 present: no. Sitter present: Yes. 16:45 Safety checks: Items removed: yes. Door open/sign placed on door: yes. Family/friend dh3 present: no. Sitter present: Yes. 17:00 Safety checks: Items removed: yes. Door open/sign placed on door: yes. Family/friend dh3 present: no. Sitter present: Yes. 17:05 Diet: Patient given a regular meal tray. dh3 17:15 Safety checks: Items removed: yes. Door open/sign placed on door: yes. Family/friend dh3 present: no. Sitter present: Yes. 17:30 Safety checks: Items removed: yes. Door open/sign placed on door: yes. Family/friend dh3 present: no. Sitter present: Yes. 17:45 Safety checks: Items removed: yes. Door open/sign placed on door: yes. Family/friend dh3 present: no. Sitter present: Yes. 18:00 Safety checks: Items removed: yes. Door open/sign placed on door: yes. Family/friend dh3 present: no. Sitter present: Yes. 18:15 Safety checks: Items removed: yes. Door open/sign placed on door: yes. Family/friend dh3 present: no. Sitter present: Yes. 18:30 Safety checks: Items removed: yes. Door open/sign placed on door: yes. Family/friend dh3 present: no. Sitter present: Yes. 18:45 Safety checks: Items removed: yes. Door open/sign placed on door: yes. Family/friend dh3 present: no. Sitter present: Yes. 19:00 Safety checks: Items removed: yes. Door open/sign placed on door: yes. Family/friend vo1 present: no. Sitter present: Yes. 19:10 Report received from NORAH Bach. aa5 19:15 Safety checks: Items removed: yes. Door open/sign placed on door: yes. Family/friend vo1 present: no. Sitter present: Yes. 19:30 Safety checks: Items removed: yes. Door open/sign placed on door: yes. Family/friend vo1 present: no. Sitter present: Yes. 19:45 Safety checks: Items removed: yes. Door open/sign placed on door: yes. Family/friend vo1 present: no. Sitter present: Yes. 20:00 Safety checks: Items removed: yes. Door open/sign placed on door: yes. Family/friend vo1 present: no. Sitter present: Yes. 20:15 Safety checks: Items removed: yes. Door open/sign placed on door: yes. Family/friend vo1 present: no. Sitter present: Yes. 20:30 Safety checks: Items removed: yes. Door open/sign placed on door: yes. Family/friend vo1 present: no. Sitter present: Yes. 20:45 Safety checks: Items removed: yes. Door open/sign placed on door: yes. Family/friend vo1 present: no. Sitter present: Yes. 21:00 Safety checks: Items removed: yes. Door open/sign placed on door: yes. Family/friend vo1 present: no. Sitter present: Yes. 21:15 Safety checks: Items removed: yes. Door open/sign placed on door: yes. Family/friend vo1 present: no. Sitter present: Yes. 21:30 Safety checks: Items removed: yes. Door open/sign placed on door: yes. Family/friend vo1 present: no. Sitter present: Yes. :45 Safety checks: Items removed: yes. Door open/sign placed on door: yes. Family/friend vo1 present: no. Sitter present: Yes. 22:00 Safety checks: Items removed: yes. Door open/sign placed on door: yes. Family/friend vo1 present: no. Sitter present: Yes. 22:15 Safety checks: Items removed: yes. Door open/sign placed on door: yes. Family/friend vo1 present: no. Sitter present: Yes. 22:30 Safety checks: Items removed: yes. Door open/sign placed on door: yes. Family/friend vo1 present: no. Sitter present: Yes. 22:45 Safety checks: Items removed: yes. Door open/sign placed on door: yes. Family/friend vo1 present: no. Sitter present: Yes. 23:00 Safety checks: Items removed: yes. Door open/sign placed on door: yes. Family/friend vo1 present: no. Sitter present: Yes. 23:15 Safety checks: Items removed: yes. Door open/sign placed on door: yes. Family/friend vo1 present: no. Sitter present: Yes. 23:30 Safety checks: Items removed: yes. Door open/sign placed on door: yes. Family/friend vo1 present: no. Sitter present: Yes. 23:45 Safety checks: Items removed: yes. Door open/sign placed on door: yes. Family/friend vo1 present: no. Sitter present: Yes. 12/12 00:00 Safety checks: Items removed: yes. Door open/sign placed on door: yes. Family/friend vo1 present: no. Sitter present: Yes. 00:15 Safety checks: Items removed: yes. Door open/sign placed on door: yes. Family/friend vo1 present: no. Sitter present: Yes. 00:30 Safety checks: Items removed: yes. Door open/sign placed on door: yes. Family/friend vo1 present: no. Sitter present: Yes. 00:45 Safety checks: Items removed: yes. Door open/sign placed on door: yes. Sitter present: vo1 Yes. 01:00 Safety checks: Items removed: yes. Door open/sign placed on door: yes. Family/friend vo1 present: no. Sitter present: Yes. 01:15 Safety checks: Items removed: yes. Door open/sign placed on door: yes. Family/friend vo1 present: no. Sitter present: Yes. 01:30 Safety checks: Items removed: yes. Door open/sign placed on door: yes. Family/friend vo1 present: no. Sitter present: Yes. 01:45 Safety checks: Items removed: yes. Door open/sign placed on door: yes. Family/friend vo1 present: no. Sitter present: Yes. 02:00 Safety checks: Items removed: yes. Door open/sign placed on door: yes. Family/friend vo1 present: no. Sitter present: Yes. 02:15 Safety checks: Items removed: yes. Door open/sign placed on door: yes. Family/friend vo1 present: no. Sitter present: Yes. 02:30 Safety checks: Items removed: yes. Door open/sign placed on door: yes. Family/friend vo1 present: no. Sitter present: Yes. 02:45 Safety checks: Items removed: yes. Door open/sign placed on door: yes. Family/friend vo1 present: no. Sitter present: Yes. 03:00 Safety checks: Items removed: yes. Door open/sign placed on door: yes. Family/friend vo1 present: no. Sitter present: Yes. 03:15 Safety checks: Items removed: yes. Door open/sign placed on door: yes. Family/friend vo1 present: no. Sitter present: Yes. 03:30 Safety checks: Items removed: yes. Door open/sign placed on door: yes. Family/friend vo1 present: no. Sitter present: Yes. 03:45 Safety checks: Items removed: yes. Door open/sign placed on door: yes. Family/friend vo1 present: no. Sitter present: Yes. 04:00 Safety checks: Items removed: yes. Door open/sign placed on door: yes. Family/friend vo1 present: no. Sitter present: Yes. 04:15 Safety checks: Items removed: yes. Door open/sign placed on door: yes. Family/friend vo1 present: no. Sitter present: Yes. 04:30 Safety checks: Items removed: yes. Door open/sign placed on door: yes. Family/friend vo1 present: no. Sitter present: Yes. 04:45 Safety checks: Items removed: yes. Door open/sign placed on door: yes. Family/friend vo1 present: yes. no. Sitter present: Yes. 05:00 Safety checks: Items removed: yes. Door open/sign placed on door: yes. Family/friend vo1 present: no. Sitter present: Yes. 05:15 Safety checks: Items removed: yes. Door open/sign placed on door: yes. Family/friend vo1 present: no. Sitter present: Yes. 05:30 Safety checks: Items removed: yes. Door open/sign placed on door: yes. Family/friend vo1 present: no. Sitter present: Yes. 05:45 Safety checks: Items removed: yes. Door open/sign placed on door: yes. Family/friend vo1 present: no. Sitter present: Yes. 06:00 Safety checks: Items removed: yes. Door open/sign placed on door: yes. Family/friend vo1 present: no. Sitter present: Yes. 06:15 Safety checks: Items removed: yes. Door open/sign placed on door: yes. Family/friend vo1 present: no. Sitter present: Yes. 06:30 Safety checks: Items removed: yes. Door open/sign placed on door: yes. Family/friend vo1 present: no. Sitter present: Yes. 06:45 Safety checks: Items removed: yes. Door open/sign placed on door: yes. Family/friend vo1 present: no. Sitter present: Yes. 07:00 Safety checks: Items removed: yes. Door open/sign placed on door: yes. Family/friend vo1 present: no. Sitter present: Yes. 07:04 Safety checks:. mp1 07:15 Safety checks: Items removed: yes. Door open/sign placed on door: yes. Family/friend mp1 present: no. Sitter present: Yes. 07:30 Safety checks: Items removed: yes. Door open/sign placed on door: yes. Family/friend mp1 present: no. Sitter present: Yes. 07:45 Safety checks: Items removed: yes. Door open/sign placed on door: yes. Family/friend mp1 present: no. Sitter present: Yes. 08:00 Safety checks: Items removed: yes. Door open/sign placed on door: yes. Family/friend mp1 present: no. Sitter present: Yes. 08:15 Safety checks: Items removed: yes. Door open/sign placed on door: yes. Family/friend mp1 present: no. Sitter present: Yes. 08:30 Safety checks: Items removed: yes. Door open/sign placed on door: yes. Family/friend mp1 present: no. Sitter present: Yes. 08:45 Safety checks: Items removed: yes. Door open/sign placed on door: yes. Family/friend mp1 present: no. Sitter present: Yes. 09:00 Safety checks: Items removed: yes. Door open/sign placed on door: yes. Family/friend mp1 present: no. Sitter present:. 09:15 Safety checks: Items removed: yes. Door open/sign placed on door: yes. Family/friend mp1 present: no. Sitter present: Yes. 09:30 Safety checks: Items removed: yes. Door open/sign placed on door: yes. Family/friend mp1 present: no. Sitter present: Yes. 09:45 Safety checks: Items removed: yes. Door open/sign placed on door: yes. Family/friend mp1 present: no. Sitter present: Yes. 10:00 Safety checks: Items removed: yes. Door open/sign placed on door: yes. Family/friend mp1 present: no. Sitter present: Yes. 10:15 Safety checks: Items removed: yes. Door open/sign placed on door: yes. Family/friend mp1 present: no. Sitter present: Yes. 10:30 Safety checks: Items removed: yes. Door open/sign placed on door: yes. Family/friend mp1 present: no. Sitter present: Yes. 10:45 Safety checks: Items removed: yes. Door open/sign placed on door: yes. Family/friend mp1 present: no. Sitter present: Yes. 10:58 faxed patient records to the following facilities in the attempt to transfer the eb patient. [facility], [facility], [facility], [facility], [facility], [facility], [facility], [facility], [facility], [facility] and [facility]. 11:00 Safety checks: Items removed: yes. Door open/sign placed on door: yes. Family/friend mp1 present: no. Sitter present: Yes. 11:15 Safety checks: Items removed: yes. Door open/sign placed on door: yes. Family/friend mp1 present: no. Sitter present: Yes. 11:30 Safety checks: Items removed: yes. Door open/sign placed on door: yes. Family/friend mp1 present: yes. Sitter present: Yes. 11:45 Safety checks: Items removed: yes. Door open/sign placed on door: yes. Family/friend mp1 present: no. Sitter present: Yes. 12:00 Safety checks: Items removed: yes. Door open/sign placed on door: yes. Family/friend mp1 present: no. Sitter present: Yes. 12:15 Safety checks: Items removed: yes. Door open/sign placed on door: yes. Family/friend mp1 present: no. Sitter present: Yes. 12:30 Safety checks: Items removed: yes. Door open/sign placed on door: yes. Family/friend mp1 present: no. Sitter present: Yes. 12:45 Safety checks: Items removed: yes. Door open/sign placed on door: yes. Family/friend ms present: no. Sitter present: Yes. 13:00 Safety checks: Items removed: yes. Door open/sign placed on door: yes. Family/friend ms present: no. Sitter present: Yes. 13:15 Safety checks: Items removed: yes. Door open/sign placed on door: yes. Family/friend ms present: no. Sitter present: Yes. 13:30 Safety checks: Items removed: yes. Door open/sign placed on door: yes. Family/friend mp1 present: no. Sitter present: Yes. 13:45 Safety checks: Items removed: yes. Door open/sign placed on door: yes. Family/friend mp1 present: no. Sitter present: Yes. 14:00 Safety checks: Items removed: yes. Door open/sign placed on door: yes. Family/friend mp1 present: no. Sitter present: Yes. 14:15 Safety checks: Items removed: yes. Door open/sign placed on door: yes. Family/friend mp1 present: no. Sitter present: Yes. 14:30 Safety checks: Items removed: yes. Door open/sign placed on door: yes. Family/friend mp1 present: no. Sitter present: Yes. 14:45 Safety checks: Items removed: yes. Door open/sign placed on door: yes. Family/friend mp1 present: no. Sitter present: Yes. 15:00 Safety checks: Items removed: yes. Door open/sign placed on door: yes. Family/friend mp1 present: no. Sitter present: Yes. 15:15 Safety checks: Items removed: yes. Door open/sign placed on door: yes. Family/friend mp1 present: no. Sitter present: Yes. 15:30 Safety checks: Items removed: yes. Door open/sign placed on door: yes. Family/friend mp1 present: no. Sitter present: Yes. 15:30 Safety checks: Items removed: yes. Door open/sign placed on door: yes. Family/friend mp1 present: no. Sitter present: Yes. 15:45 Safety checks: Items removed: yes. Door open/sign placed on door: yes. Family/friend mp1 present: no. Sitter present: Yes. 16:00 Safety checks: Items removed: yes. Door open/sign placed on door: yes. Family/friend mp1 present: no. Sitter present: Yes. 16:15 Safety checks: Items removed: yes. Door open/sign placed on door: yes. Family/friend mp1 present: no. Sitter present: Yes. 16:30 Safety checks: Items removed: yes. Door open/sign placed on door: yes. Family/friend mp1 present: no. Sitter present: Yes. 16:45 Safety checks: Items removed: yes. Door open/sign placed on door: yes. Family/friend mp1 present: no. Sitter present: Yes. 17:00 Safety checks: Items removed: yes. Door open/sign placed on door: yes. Family/friend mp1 present: no. Sitter present: Yes. 17:15 Safety checks: Items removed: yes. Door open/sign placed on door: yes. Family/friend mp1 present: no. Sitter present: Yes. 17:30 Safety checks: Items removed: yes. Door open/sign placed on door: yes. Family/friend mp1 present: no. Sitter present: Yes. 17:45 Safety checks: Items removed: yes. Door open/sign placed on door: yes. Family/friend mp1 present: no. Sitter present: Yes. 18:00 Safety checks: Items removed: yes. Door open/sign placed on door: yes. Family/friend mp1 present: no. Sitter present: Yes. 18:15 Safety checks: Items removed: yes. Door open/sign placed on door: yes. Family/friend td present: no. Sitter present: Yes. 18:30 Safety checks: Items removed: yes. Door open/sign placed on door: yes. Family/friend td present: yes. Sitter present: Yes. 18:45 Safety checks: Items removed: yes. Door open/sign placed on door: yes. Family/friend td present: no. Sitter present: Yes. 19:00 Safety checks: Items removed: yes. Door open/sign placed on door: yes. Family/friend td present: no. Sitter present: Yes. 19:15 Safety checks: Items removed: yes. Door open/sign placed on door: yes. Family/friend td present: no. Sitter present: Yes. 19:30 Safety checks: Items removed: yes. Door open/sign placed on door: yes. Family/friend td present: no. Sitter present: Yes. 19:42 Safety checks: Items removed: yes. Door open/sign placed on door: yes. Family/friend td present: no. Sitter present: Yes. 19:45 Safety checks: Items removed: yes. Door open/sign placed on door: yes. Family/friend td present: no. Sitter present: Yes. 20:00 Safety checks: Items removed: yes. Door open/sign placed on door: yes. Family/friend td present: no. Sitter present: Yes. 20:15 Safety checks: Items removed: yes. Door open/sign placed on door: yes. Family/friend td present: no. Sitter present: Yes. 20:30 Safety checks: Items removed: yes. Door open/sign placed on door: yes. Family/friend td present: no. Sitter present: Yes. 20:45 Safety checks: Items removed: yes. Door open/sign placed on door: yes. Family/friend td present: no. Sitter present: Yes. 21:00 Safety checks: Items removed: yes. Door open/sign placed on door: yes. Family/friend td present: no. Sitter present: Yes. 21:15 Safety checks: Items removed: yes. Door open/sign placed on door: yes. Family/friend td present: no. Sitter present: Yes. 21:30 Safety checks: Items removed: yes. Door open/sign placed on door: yes. Family/friend td present: no. Sitter present: Yes. 21:45 Safety checks: Items removed: yes. Door open/sign placed on door: yes. Family/friend td present: no. Sitter present: Yes. 22:00 Safety checks: Items removed: yes. Door open/sign placed on door: yes. Family/friend td present: no. Sitter present: Yes. 22:15 Safety checks: Items removed: yes. Door open/sign placed on door: yes. Family/friend td present: no. Sitter present: Yes. 22:45 Safety checks: Items removed: yes. Door open/sign placed on door: yes. Family/friend td present: no. Sitter present: Yes. 23:00 Safety checks: Items removed: yes. Door open/sign placed on door: yes. Family/friend td present: no. Sitter present: Yes. 23:15 Safety checks: Items removed: yes. Door open/sign placed on door: yes. Family/friend td present: no. Sitter present: Yes. 23:30 Safety checks: Items removed: yes. Door open/sign placed on door: yes. Family/friend td present: no. Sitter present: Yes. 23:45 Safety checks: Items removed: yes. Door open/sign placed on door: yes. Family/friend td present: no. Sitter present: Yes. 12/13 00:00 Safety checks: Items removed: yes. Door open/sign placed on door: yes. Family/friend td present: no. Sitter present: Yes. 00:15 Safety checks: Items removed: yes. Door open/sign placed on door: yes. Family/friend td present: yes. no. Sitter present: Yes. 00:30 Safety checks: Items removed: yes. Door open/sign placed on door: yes. Family/friend td present: no. Sitter present: Yes. 00:45 Safety checks: Items removed: yes. Door open/sign placed on door: yes. Family/friend td present: no. Sitter present: Yes. 01:00 Safety checks: Items removed: yes. Door open/sign placed on door: yes. Family/friend td present: no. Sitter present: Yes. 01:15 Safety checks: Items removed: yes. Door open/sign placed on door: yes. Family/friend td present: no. Sitter present: Yes. 01:30 Safety checks: Items removed: yes. Door open/sign placed on door: yes. Family/friend td present: no. Sitter present: Yes. 01:45 Safety checks: Items removed: yes. Door open/sign placed on door: yes. Family/friend td present: no. Sitter present: Yes. 02:00 Safety checks: Items removed: yes. Door open/sign placed on door: yes. Family/friend td present: no. Sitter present: Yes. 02:15 Safety checks: Items removed: yes. Door open/sign placed on door: yes. Family/friend td present: no. Sitter present: Yes. 02:30 Safety checks: Items removed: yes. Door open/sign placed on door: yes. Family/friend td present: no. Sitter present:. 02:45 Safety checks: Items removed: yes. Door open/sign placed on door: yes. Family/friend td present: no. Sitter present: Yes. 03:00 Safety checks: Items removed: yes. Door open/sign placed on door: yes. Family/friend td present: no. Sitter present: Yes. 03:15 Safety checks: Items removed: yes. Door open/sign placed on door: yes. Family/friend td present: no. Sitter present: Yes. 03:30 Safety checks: Items removed: yes. Door open/sign placed on door: yes. Family/friend td present: no. Sitter present: Yes. 03:45 Safety checks: Items removed: yes. Door open/sign placed on door: yes. Family/friend td present: no. Sitter present: Yes. 04:00 Safety checks: Items removed: yes. Door open/sign placed on door: yes. Family/friend td present: no. Sitter present: Yes. 04:15 Safety checks: Items removed: yes. Door open/sign placed on door: yes. Family/friend td present: no. Sitter present: Yes. 04:30 Safety checks: Items removed: yes. Door open/sign placed on door: yes. Family/friend td present: no. Sitter present: Yes. 04:45 Safety checks: Items removed: yes. Door open/sign placed on door: yes. Family/friend td present: no. Sitter present: Yes. 05:00 Safety checks: Items removed: yes. Door open/sign placed on door: yes. Family/friend td present: no. Sitter present: Yes. 05:15 Safety checks: Items removed: yes. Door open/sign placed on door: yes. Family/friend td present: no. Sitter present: Yes. 05:15 Safety checks: Items removed: yes. Door open/sign placed on door: yes. Family/friend td present: no. Sitter present: Yes. 05:30 Safety checks: Items removed: yes. Door open/sign placed on door: yes. Family/friend td present: no. Sitter present: Yes. 05:45 Safety checks: Items removed: yes. Door open/sign placed on door: yes. Family/friend td present: no. Sitter present: Yes. 06:00 Safety checks: Items removed: yes. Door open/sign placed on door: yes. Family/friend td present: no. Sitter present: Yes. 06:15 Safety checks: Items removed: yes. Door open/sign placed on door: yes. Family/friend td present: no. Sitter present: Yes. 06:30 Safety checks: Items removed: yes. Door open/sign placed on door: yes. Family/friend td present: no. Sitter present: Yes. 06:45 Safety checks: Items removed: yes. Door open/sign placed on door: yes. Family/friend td present: no. Sitter present: Yes. 07:00 Safety checks: Items removed: yes. Door open/sign placed on door: yes. Family/friend td present: no. Sitter present: Yes. 07:15 Safety checks: Items removed: yes. Door open/sign placed on door: yes. Family/friend kj1 present: no. Sitter present: Yes. 07:30 Safety checks: Items removed: yes. Door open/sign placed on door: yes. Family/friend kj1 present: no. Sitter present: Yes. 07:45 Safety checks: Items removed: yes. Door open/sign placed on door: yes. Family/friend kj1 present: no. Sitter present: Yes. 08:00 Safety checks: Items removed: yes. Door open/sign placed on door: yes. Family/friend kj1 present: no. Sitter present: Yes. 08:15 Safety checks: Items removed: yes. Door open/sign placed on door: yes. Family/friend kj1 present: no. Sitter present: Yes. 08:30 Safety checks: Items removed: yes. Door open/sign placed on door: yes. Family/friend kj1 present: no. Sitter present: Yes. 08:45 Safety checks: Items removed: yes. Door open/sign placed on door: yes. Family/friend kj1 present: no. Sitter present: Yes. 09:00 Safety checks: Items removed: yes. Door open/sign placed on door: yes. Family/friend kj1 present: no. Sitter present: Yes. 09:00 Diet: Patient given a regular meal tray. Tolerated well. kj1 09:15 Safety checks: Items removed: yes. Door open/sign placed on door: yes. Sitter present: kj1 Yes. 09:30 Safety checks: Items removed: yes. Door open/sign placed on door: yes. Family/friend kj1 present: no. Sitter present: Yes. 09:45 Safety checks: Items removed: yes. Door open/sign placed on door: yes. Sitter present: kj1 Yes. 10:00 Safety checks: Items removed: yes. Door open/sign placed on door: yes. Family/friend kj1 present: no. Sitter present: Yes. 10:15 Safety checks: Items removed: yes. Door open/sign placed on door: yes. Family/friend kj1 present: no. Sitter present: Yes. 10:30 Safety checks: Items removed: yes. Door open/sign placed on door: yes. Family/friend kj1 present: no. Sitter present: Yes. 10:45 Safety checks: Items removed: yes. Door open/sign placed on door: yes. Family/friend kj1 present: no. Sitter present: Yes. 11:00 Safety checks: Items removed: yes. Door open/sign placed on door: yes. Family/friend kj1 present: no. Sitter present: Yes. 11:15 Safety checks: Items removed: yes. Door open/sign placed on door: yes. Family/friend kj1 present: no. Sitter present: Yes. 11:30 Safety checks: Items removed: yes. Door open/sign placed on door: yes. Family/friend kj1 present: no. Sitter present: Yes. 11:45 Safety checks: Items removed: yes. Door open/sign placed on door: yes. Family/friend md present: no. Sitter present: Yes. 12:00 Safety checks: Items removed: yes. Door open/sign placed on door: yes. Family/friend kj1 present: no. Sitter present: Yes. 12:15 Safety checks: Items removed: yes. Door open/sign placed on door: yes. Family/friend kj1 present: no. Sitter present:. 12:17 Diet: Patient given a regular meal tray. Tolerated well. kj1 12:30 Safety checks: Items removed: yes. Door open/sign placed on door: yes. Family/friend kj1 present: no. Sitter present: Yes. 12:45 Safety checks: Items removed: yes. Door open/sign placed on door: yes. Family/friend kj1 present: no. Sitter present: Yes. 13:00 Safety checks: Items removed: yes. Door open/sign placed on door: yes. Family/friend kj1 present: no. Sitter present: Yes. 13:15 Safety checks: Items removed: yes. Door open/sign placed on door: yes. Family/friend kj1 present: no. Sitter present: Yes. 13:30 Safety checks: Items removed: yes. Door open/sign placed on door: yes. Family/friend mh5 present: no. Sitter present: Yes. Safety checks: Items removed:. 13:45 Safety checks: Items removed: yes. Door open/sign placed on door: yes. Family/friend mh5 present: no. Sitter present: Yes. 14:00 Safety checks: Items removed: yes. Door open/sign placed on door: yes. Family/friend mh5 present: no. Sitter present: Yes. 14:15 Safety checks: Items removed: yes. Door open/sign placed on door: yes. Family/friend mh5 present: no. Sitter present: Yes. 14:30 Safety checks: Items removed: yes. Door open/sign placed on door: yes. Family/friend mh5 present: no. Sitter present: Yes. 14:45 Safety checks: Items removed: yes. Door open/sign placed on door: yes. Family/friend mh5 present: no. Sitter present: Yes. 15:00 Safety checks: Items removed: yes. Door open/sign placed on door: yes. Family/friend mh5 present: no. Sitter present: Yes. 15:15 Safety checks: Items removed: yes. Door open/sign placed on door: yes. Family/friend mh5 present: no. Sitter present: Yes. 15:30 Safety checks: Items removed: yes. Door open/sign placed on door: yes. Family/friend mh5 present: no. Sitter present: Yes. 16:00 Safety checks: Items removed: yes. Door open/sign placed on door: yes. Family/friend mh5 present: no. Sitter present: Yes. 16:15 Safety checks: Items removed: yes. Door open/sign placed on door: yes. Family/friend mh5 present: no. Sitter present: Yes. Diet: Patient given a regular meal tray. 16:30 Safety checks: Items removed: yes. Door open/sign placed on door: yes. Family/friend mh5 present: no. Sitter present: Yes. 16:45 Safety checks: Items removed: yes. Door open/sign placed on door: yes. Family/friend mh5 present: no. Sitter present: Yes. 16:55 Urine Dipstick--Ancillary (enter results) Sent. mh5 17:00 Safety checks: Items removed: yes. Door open/sign placed on door: yes. Family/friend mh5 present: no. Sitter present: Yes. 17:15 Safety checks: Items removed: yes. Door open/sign placed on door: yes. Family/friend mh5 present: no. Sitter present: Yes. 17:30 Safety checks: Items removed: yes. Door open/sign placed on door: yes. Family/friend mh5 present: no. Sitter present: Yes. 17:45 Safety checks: Items removed: yes. Door open/sign placed on door: yes. Family/friend mh5 present: no. Sitter present: Yes. 18:00 Safety checks: Items removed: yes. Door open/sign placed on door: yes. Family/friend mh5 present: no. Sitter present: Yes. 18:15 Safety checks: Items removed: yes. Door open/sign placed on door: yes. Family/friend mh5 present: no. Sitter present: Yes. 18:30 Safety checks: Items removed: yes. Door open/sign placed on door: yes. Family/friend mh5 present: no. Sitter present: Yes. 18:45 Safety checks: Items removed: yes. Door open/sign placed on door: yes. Family/friend mh5 present: no. Sitter present: Yes. 19:00 Safety checks: Items removed: yes. Door open/sign placed on door: yes. Family/friend mh5 present: no. Sitter present: Yes. 19:15 Safety checks: Items removed: yes. Door open/sign placed on door: yes. Family/friend aa8 present: no. Sitter present: Yes. 19:30 Safety checks: Items removed: yes. Door open/sign placed on door: yes. Family/friend aa8 present: no. Sitter present: Yes. 19:45 Safety checks: Items removed: yes. Door open/sign placed on door: yes. Family/friend aa8 present: no. Sitter present: Yes. 20:00 Safety checks: Items removed: yes. Door open/sign placed on door: yes. Family/friend aa8 present: no. Sitter present: Yes. 20:15 Safety checks: Items removed: yes. Door open/sign placed on door: yes. Family/friend aa8 present: no. Sitter present: Yes. 20:30 Safety checks: Items removed: yes. Door open/sign placed on door: yes. Family/friend aa8 present: no. Sitter present: Yes. 20:45 Safety checks: Items removed: yes. Door open/sign placed on door: yes. Family/friend aa8 present: no. Sitter present: Yes. 21:00 Safety checks: Items removed: yes. Door open/sign placed on door: yes. Family/friend aa8 present: no. Sitter present: Yes. 21:15 Safety checks: Items removed: yes. Door open/sign placed on door: yes. Family/friend aa8 present: no. Sitter present: Yes. 21:30 Safety checks: Items removed: yes. Door open/sign placed on door: yes. Family/friend aa8 present: no. Sitter present: Yes. 21:45 Safety checks: Items removed: yes. Door open/sign placed on door: yes. Family/friend aa8 present: no. Sitter present: Yes. 22:00 Safety checks: Items removed: yes. Door open/sign placed on door: yes. Family/friend aa8 present: no. Sitter present: Yes. 22:15 Safety checks: Items removed: yes. Door open/sign placed on door: yes. Family/friend aa8 present: no. Sitter present: Yes. 22:15 Safety checks: Items removed: yes. Door open/sign placed on door: yes. Family/friend aa8 present: no. Sitter present: Yes. 22:30 Safety checks: Items removed: yes. Door open/sign placed on door: yes. Family/friend aa8 present: no. Sitter present: Yes. 22:45 Safety checks: Items removed: yes. Door open/sign placed on door: yes. Sitter present: aa8 Yes. 23:00 Safety checks: Items removed: yes. Door open/sign placed on door: yes. Family/friend aa8 present: no. Sitter present: Yes. 23:15 Safety checks: Items removed: yes. Door open/sign placed on door: yes. Family/friend aa8 present: no. Sitter present: Yes. 23:30 Safety checks: Items removed: yes. Door open/sign placed on door: yes. Family/friend aa8 present: no. Sitter present: Yes. 23:45 Safety checks: Items removed: yes. Door open/sign placed on door: yes. Family/friend aa8 present: no. Sitter present: Yes. 12/14 00:00 Safety checks: Items removed: yes. Door open/sign placed on door: yes. Family/friend aa8 present: no. Sitter present: Yes. 00:15 Safety checks: Items removed: yes. Door open/sign placed on door: yes. Family/friend aa8 present: yes. no. Sitter present: Yes. 00:30 Safety checks: Items removed: yes. Door open/sign placed on door: yes. Family/friend aa8 present: no. Sitter present: Yes. 00:45 Safety checks: Items removed: yes. Door open/sign placed on door: yes. Family/friend aa8 present: no. Sitter present: Yes. 01:00 Safety checks: Items removed: yes. Door open/sign placed on door: yes. Family/friend aa8 present: no. Sitter present: Yes. 01:15 Safety checks: Items removed: yes. Door open/sign placed on door: yes. Family/friend aa8 present: no. Sitter present: Yes. 01:30 Safety checks: Items removed: yes. Door open/sign placed on door: yes. Family/friend aa8 present: no. Sitter present: Yes. 01:45 Safety checks: Items removed: yes. Door open/sign placed on door: Family/friend aa8 present: no. Sitter present: Yes. 02:00 Safety checks: Items removed: yes. Door open/sign placed on door: yes. Family/friend aa8 present: no. Sitter present: Yes. 02:30 Safety checks: Items removed: yes. Door open/sign placed on door: yes. Family/friend aa8 present: no. Sitter present: Yes. 02:45 Safety checks: Items removed: yes. Door open/sign placed on door: yes. Family/friend aa8 present: no. Sitter present: Yes. 03:00 Safety checks: Items removed: yes. Door open/sign placed on door: yes. Family/friend aa8 present: no. Sitter present: Yes. 03:15 Safety checks: Items removed: yes. Door open/sign placed on door: yes. Family/friend aa8 present: no. Sitter present: Yes. 03:30 Safety checks: Items removed: yes. Door open/sign placed on door: yes. Family/friend aa8 present: no. Sitter present: Yes. 03:45 Safety checks: Items removed: yes. Door open/sign placed on door: yes. Family/friend aa8 present: no. Sitter present: Yes. 04:00 Safety checks: Items removed: yes. Door open/sign placed on door: yes. Family/friend aa8 present: no. Sitter present: Yes. 04:15 Safety checks: Items removed: yes. Door open/sign placed on door: yes. Family/friend aa8 present: no. Sitter present: Yes. 04:30 Safety checks: Items removed: yes. Door open/sign placed on door: yes. Family/friend aa8 present: no. Sitter present: Yes. 04:45 Safety checks: Items removed: yes. Door open/sign placed on door: yes. Family/friend aa8 present: no. Sitter present: Yes. 05:00 Safety checks: Items removed: yes. Door open/sign placed on door: yes. Family/friend aa8 present: no. Sitter present: Yes. 05:15 Safety checks: Items removed: yes. Door open/sign placed on door: yes. Family/friend aa8 present: no. Sitter present: Yes. 05:30 Safety checks: Items removed: yes. Door open/sign placed on door: yes. Family/friend aa8 present: no. Sitter present: Yes. 05:45 Safety checks: Items removed: yes. Door open/sign placed on door: yes. Family/friend aa8 present: no. Sitter present: Yes. 06:00 Safety checks: Items removed: yes. Door open/sign placed on door: yes. Family/friend aa8 present: no. Sitter present: Yes. 06:15 Safety checks: Items removed: yes. no. Reason for not removing items: Door open/sign aa8 placed on door: yes. Family/friend present: no. Sitter present: Yes. 06:30 Safety checks: Items removed: yes. Door open/sign placed on door: yes. Family/friend aa8 present: no. Sitter present: Yes. 06:45 Safety checks: Items removed: yes. Door open/sign placed on door: yes. Family/friend aa8 present: no. Sitter present: Yes. 07:00 Safety checks: Items removed: yes. Door open/sign placed on door: yes. Family/friend aa8 present: no. Sitter present: Yes. 07:03 Primary Nurse role handed off by Erika Díaz RN 07:03 Linsey Lozada RN is Primary Nurse. 07:16 Report given to Linsey ALMAZAN. jd3 07:26 Noise minimized. Lights dimmed. Warm blanket given. Pillow given. Diet tray ordered. ch Verbal reassurance given. 07:30 Safety checks: Items removed: yes. Door open/sign placed on door: yes. Family/friend jb1 present: no. Sitter present: Yes. 07:45 Safety checks: Items removed: yes. Door open/sign placed on door: yes. Family/friend jb1 present: no. Sitter present: Yes. 08:00 Safety checks: Items removed: yes. Door open/sign placed on door: yes. Family/friend jb1 present: no. Sitter present: Yes. 08:15 Safety checks: Items removed: yes. Door open/sign placed on door: yes. Family/friend jb1 present: no. Sitter present: Yes. 08:30 Safety checks: Items removed: yes. Door open/sign placed on door: yes. Family/friend jb1 present: no. Sitter present: Yes. 08:45 Safety checks: Items removed: yes. Door open/sign placed on door: yes. Family/friend jb1 present: no. Sitter present: Yes. 09:00 Safety checks: Items removed: yes. Door open/sign placed on door: yes. Family/friend jb1 present: no. Sitter present: Yes. 09:15 Safety checks: Items removed: yes. Door open/sign placed on door: yes. Family/friend jb1 present: no. Sitter present: Yes. 09:30 Safety checks: Items removed: yes. Door open/sign placed on door: yes. Family/friend jb1 present: no. Sitter present: Yes. 09:45 Safety checks: Items removed: yes. Door open/sign placed on door: yes. Family/friend jb1 present: no. Sitter present: Yes. 10:00 Safety checks: Items removed: yes. Door open/sign placed on door: yes. Family/friend jb1 present: no. Sitter present: Yes. 10:15 Safety checks: Items removed: yes. Door open/sign placed on door: yes. Family/friend jb1 present: no. Sitter present: Yes. 10:30 Safety checks: Items removed: yes. Door open/sign placed on door: yes. Family/friend jb1 present: no. Sitter present: Yes. 10:45 Safety checks: Items removed: yes. Door open/sign placed on door: yes. Family/friend jb1 present: no. Sitter present: Yes. 11:00 Safety checks: Items removed: yes. Door open/sign placed on door: yes. Family/friend jb1 present: no. Sitter present: Yes. 11:15 Safety checks: Items removed: yes. Door open/sign placed on door: yes. Family/friend jb1 present: no. Sitter present: Yes. 11:30 Safety checks: Items removed: yes. Door open/sign placed on door: yes. Family/friend jb1 present: no. Sitter present: Yes. 11:45 Safety checks: Items removed: yes. Door open/sign placed on door: yes. Family/friend jb1 present: no. Sitter present: Yes. 12:00 Safety checks: Items removed: yes. Door open/sign placed on door: yes. Family/friend jb1 present: no. Sitter present: Yes. 12:15 Safety checks: Items removed: yes. Door open/sign placed on door: yes. Family/friend jb1 present: no. Sitter present: Yes. 12:30 Safety checks: Items removed: yes. Door open/sign placed on door: yes. Family/friend jb1 present: no. Sitter present: Yes. 12:45 Safety checks: Items removed: yes. Door open/sign placed on door: yes. Family/friend jb1 present: no. Sitter present: Yes. 13:00 Safety checks: Items removed: yes. Door open/sign placed on door: yes. Family/friend jb1 present: no. Sitter present: Yes. 13:15 Safety checks: Items removed: yes. Door open/sign placed on door: yes. Family/friend dh3 present: no. Sitter present: Yes. 13:30 Safety checks: Items removed: yes. Door open/sign placed on door: yes. Family/friend dh3 present: no. Sitter present: Yes. 13:45 Safety checks: Items removed: yes. Door open/sign placed on door: yes. Family/friend jb1 present: no. Sitter present: Yes. 14:41 No apparent distress. Resting quietly. ch 14:41 IV discontinued, intact, bleeding controlled, No redness/swelling at site. Pressure ch dressing applied. Administered Medications: 12/10 09:45 Drug: NS 0.9% 1000 ml Route: IV; Rate: 1 bolus; Site: left hand; jl7 11:00 Follow up: Response: No adverse reaction; IV Status: Completed infusion; IV Intake: jl7 1000ml 14:13 Drug: Potassium Chloride 40 mEq Route: PO; jl7 14:13 Follow up: Response: No adverse reaction 7 17:24 Drug: HALdol 5 mg Route: IVP; Site: left hand; jl7 19:10 Follow up: Response: No adverse reaction [facility] 12/11 03:35 Drug: Lidocaine (1 %) 5 ml {Note: administered by Dr. Wilder.} Volume: 5 ml; Route: cc3 Infiltration; Site: affected area; 04:45 Follow up: Response: No adverse reaction cc3 03:35 Drug: Marcaine (0.5 %) 10 ml {Note: administered by Dr. Wilder.} Volume: 10 ml; cc3 Route: Infiltration; Site: affected area; 04:45 Follow up: Response: No adverse reaction 3 04:00 Drug: Bactroban Ointment 2 % 1 application {Note: left thumb.} Route: Topical; Site: cc3 affected area; 04:46 Follow up: Response: No adverse reaction cc3 04:29 CANCELLED (Other Intervention Used; not available): Unasyn 3 grams IVPB once over 30 cc3 mins; (mix in 100 mL NS) 04:30 Drug: NS 0.9% 1000 ml Route: IV; Rate: 1 bolus; Site: left hand; cc3 05:20 Follow up: Response: No adverse reaction; IV Status: Completed infusion; IV Intake: cc3 1000ml 04:30 Drug: Tetanus-Diphtheria Toxoid Adult 0.5 ml {[employer]: [employer]. Exp: cc3 08/04/2020. Lot #: [id number]. } Route: IM; Site: right deltoid; 04:45 Follow up: Response: No adverse reaction 3 04:35 Drug: Zosyn 3.375 grams Route: IVPB; Infused Over: 60 mins; Site: left hand; cc3 05:40 Follow up: Response: No adverse reaction; IV Status: Completed infusion; IV Intake: cc3 100ml 07:15 Drug: Potassium Effervescent Tablet 25 mEq Route: PO; aa5 09:00 Follow up: Response: No adverse reaction aa5 10:56 Drug: Zosyn 3.375 grams Route: IVPB; Infused Over: 60 mins; Site: left hand; aa5 11:56 Follow up: Response: No adverse reaction; IV Status: Completed infusion aa5 17:00 Drug: Zosyn 3.375 grams Route: IVPB; Infused Over: 60 mins; Site: left hand; aa5 18:00 Follow up: Response: No adverse reaction; IV Status: Completed infusion aa5 23:21 Drug: Zosyn 3.375 grams Route: IVPB; Infused Over: 60 mins; Site: left hand; 12/12 02:50 Follow up: Response: No adverse reaction; IV Status: Completed infusion 05:30 Drug: Zosyn 3.375 grams Route: IVPB; Infused Over: 60 mins; Site: left hand; [facility] 07:00 Follow up: Response: No adverse reaction; IV Status: Completed infusion; IV Intake: em 100ml 12:21 Drug: Zosyn 3.375 grams Route: IVPB; Infused Over: 60 mins; Site: left hand; em 13:30 Follow up: Response: No adverse reaction; IV Status: Completed infusion; IV Intake: em 100ml 18:25 Drug: Zosyn 3.375 grams Route: IVPB; Infused Over: 60 mins; Site: left hand; em 19:30 Follow up: Response: No adverse reaction; IV Status: Completed infusion; IV Intake: jd3 100ml 12/13 00:50 Drug: Zosyn 3.375 grams Route: IVPB; Infused Over: 60 mins; Site: left hand; jd3 01:50 Follow up: Response: No adverse reaction; IV Status: Completed infusion; IV Intake: jd3 100ml 06:47 Drug: Zosyn 3.375 grams Route: IVPB; Infused Over: 60 mins; Site: left hand; jd3 08:00 Follow up: Response: No adverse reaction; IV Status: Completed infusion; IV Intake: em 100ml 17:31 Drug: Zosyn 3.375 grams Route: IVPB; Infused Over: 60 mins; Site: left hand; em 19:06 Follow up: Response: No adverse reaction; IV Status: Completed infusion; IV Intake: em 100ml 12/14 01:16 Drug: Zosyn 3.375 grams Route: IVPB; Infused Over: 60 mins; Site: left hand; jd3 02:15 Follow up: Response: No adverse reaction; IV Status: Completed infusion; IV Intake: jd3 100ml 06:55 Drug: Zosyn 3.375 grams Route: IVPB; Infused Over: 60 mins; Site: left hand; jd3 07:30 Follow up: IV Status: Completed infusion; IV Intake: 100ml ch 12:23 Drug: Zosyn 3.375 grams Route: IVPB; Infused Over: 60 mins; Site: left hand; ch 13:30 Follow up: IV Status: Completed infusion ch Intake: 12/10 11:00 IV: 1000ml; Total: 1000ml. jl7 12/11 05:20 IV: 1000ml; Total: 2000ml. cc3 05:40 IV: 100ml; Total: 2100ml. cc3 12/12 07:00 IV: 100ml; Total: 2200ml. em 13:30 IV: 100ml; Total: 2300ml. em 19:30 IV: 100ml; Total: 2400ml. jd3 12/13 01:50 IV: 100ml; Total: 2500ml. jd3 08:00 IV: 100ml; Total: 2600ml. em 19:06 IV: 100ml; Total: 2700ml. em 12/14 02:15 IV: 100ml; Total: 2800ml. jd3 07:30 IV: 100ml; Total: 2900ml. Outcome: 12/11 04:14 ER care complete, transfer ordered by . zuri 12/14 14:41 Transferred [facility]. to other acute care facility: [facility]. Transfer ch form completed. Condition: stable Instructed on the need for transfer. 14:44 Patient left the ED. Signatures: Compa Razo jb1 Omaira Ramos Christina, RN RN Alvino Wilder MD MD cha Munoz, Alfredo, PLASMA CENTER TECHNICIAN PLASMA CENTER TECHNICIAN Jory Fournier ms, Erika, RN RN aa5 Vidal Nur PA PA jr8 López Hidalgo jd2 Gus Smith, RN RN jb4 Azar Lazcano Maria 5 Soo Prater, RN RN jl7 Hood Niceanda am2 Margot Nealola aa8 Lelia Burt vo1 [place] Amanda 3 Isreal [place] Jonathon RN RN jd3 Charmaine Holloway Tanika td [place], Michelle mp1 Jory Mi md, Mackenzie mb4 Marisa Lugo cc3 Stephanie Staples lt1 [facility] [place] kj1 Corrections: (The following items were deleted from the chart) 12/10 21:04 09:27 Home Meds: Unable to obtain; jl7 cc3 22:53 19:15 Reassessment: Patient appears in no apparent distress at this time. Received this cc3 male patient from morning shift NORAH Vann as a case of suicidal ideation. With IV cannula gauge 22 at the left hand saline locked. Patient resting with eyes closed. Patient denies pain at this time. cc3 22:53 20:25 Reassessment: Patient appears in no apparent distress at this time. Patient cc3 and/or family updated on plan of care and expected duration. Pain level reassessed. Patient is alert, oriented x 3, equal unlabored respirations, skin warm/dry/pink. Patient denies pain at this time. cc3 22:54 21:14 Reassessment: Patient appears in no apparent distress at this time. Patient 3 and/or family updated on plan of care and expected duration. Pain level reassessed. Patient is alert, oriented x 3, equal unlabored respirations, skin warm/dry/pink. Patient denies pain at this time. [facility] 12/11 01:48 12/10 19:15 Derm: Skin is intact, is healthy with good turgor, Skin is pink, warm \\T\\ cc3 dry. normal, [facility] 12/11 01:48 12/10 19:15 Musculoskeletal: Circulation, motion, and sensation intact. Range of [facility] motion: intact in all extremities, [facility] 12/11 01:48 12/10 19:15 Reassessment: Patient appears in no apparent distress at this time. [facility] Received this male patient from morning shift RN Soo as a case of suicidal ideation. With IV cannula gauge 22 at the left hand saline locked. Patient resting with eyes closed. Sitter at bedside. Patient denies pain at this time. [facility] 12/11 07:26 07:14 Reassessment: Pt awakened easy to verbal stimuli, tolerated k-lyte well, pt aa5 notified of wait time for breakfast tray. . [facility] 08:42 07:15 Derm: Skin is pink, warm \\T\\ dry. Dressing noted to left thumb, VO to leave same [facility] dressing on for the first [address] Wilder unless intact. [facility] 17:28 17:05 Diet: Patient given a diabetic meal tray. [place] [id number] 17:29 17:05 Diet: Patient given a heart healthy meal tray. [place] [id number] 17:36 17:30 Zosyn 3.375 grams IVPB in left hand over 60 mins [place] [id number] 18:09 17:30 Reassessment: Patient is alert, oriented x 3, equal unlabored respirations, skin 5 warm/dry/pink. Dressing to left thumb removed, dressing soiled with serosanguineous drainage noted, no active drainage noted at this time. Dressed wound with Bactroban, adherent dressing, gauze, and tape per MD, pt tolerated well. Pt denies pain. . [facility] 12/12 09:03 08:45 Safety checks: Items removed: yes. Door open/sign placed on door: yes. mp1 Family/friend present: no. Sitter present: mp1 12:18 12:00 Safety checks: Items removed: yes. Door open/sign placed on door: yes. mp1 Family/friend present: no. Sitter present: Yes. mp1 19:57 19:53 BP 147 / 69; Pulse 90bpm; Resp 16bpm; Spontaneous; Pulse Ox 97% RA; Temp 97.9F jd3 Oral; Pain 0/10; jd3 21:16 19:23 Derm: Skin is intact, Skin is dry, Skin is normal, Skin temperature is warm Wound jd3 noted left thumb Wound is wound is dressed. clean dressing noted. continued order for Zosyn 3.375 grams Q [address] Wilder. jd3 12/13 12:47 12:42 Safety checks: Items removed: yes. Door open/sign placed on door: yes. kj1 Family/friend present: no. Sitter present: Yes. kj1 12/14 00:33 12/13 23:32 Safety checks: Items removed: aa8 aa8 12/14 00:33 12/13 23:30 Safety checks: Items removed: aa8 aa8 12/14 08:02 12/10 09:27 Allergies: Unable to obtain; jl7 ch
--- NOTE | 2018-12-11 04:16 | EDPHYS ---
Physician Documentation [facility] Name: Alban Rodriguez Age: 58 yrs Sex: Male : 1960 Arrival Date: 12/10/2018 Time: 09:08 Bed 18 Private MD: ED Physician Prosper Landaverde HPI: 12/10 09:19 This 58 yrs old Male presents to ER via Unassigned with complaints of jr8 psychiatric complaint. 09:19 The patient presents to the emergency department with paranoia, a history of substance jr8 abuse, Six pack of beer per day, a history of a suicide gesture, Tied shoe string around neck. Past psychiatric history: Prior diagnosis: Pt denies prior mental health dx but reports previous inpatient mental health care for SI, Psychiatric medications include: Pt unable to recall, Primary psychiatric physician: the patient's psychiatric physician is not known, it is unknown whether or not the patient has had a prior suicide gesture, the patient has a previous inpatient psychiatric history, at [facility]. Associated signs and symptoms: Pertinent positives; auditory hallucinations, Pertinent negatives: abdominal pain, anxiety, chest pain, chills, fever, headache, homicidal ideation, nausea, night sweats, tremor, vomiting. Pt was brought in by mental health deputy who reports patient was found to be on the side of the road with shoe lace tied around neck and smelling of ETOH and Urine. . Historical: - Allergies: 12/14 08:02 No Known Allergies; ch - Home Meds: 12/10 19:20 risperidone 1 mg oral tab every night [Active]; cc3 19:20 butropion 300 mg daily [Active]; cc3 - PMHx: 09:27 Schizophrenia; jl7 09:31 psoriasis; jl7 12/14 08:02 Asthma; ch - PSHx: 12/10 09:27 Unable to obtain; jl7 12/14 08:02 Knee surgery; ch - Immunization history:: Adult Immunizations unknown. - Social history:: Smoking status: Patient uses tobacco products, smokes one pack cigarettes per day. Patient uses alcohol, on a daily basis. Reports "non-alcoholic beer". - Ebola Screening: : No symptoms or risks identified at this time. ROS: 12/10 09:19 Constitutional: Negative for fever, chills, and weight loss, ENT: Negative for injury, jr8 pain, and discharge, Neck: Negative for injury, pain, and swelling, Cardiovascular: Negative for chest pain, palpitations, and edema, Respiratory: Negative for shortness of breath, cough, wheezing, and pleuritic chest pain, Abdomen/GI: Negative for abdominal pain, nausea, vomiting, diarrhea, and constipation, Back: Negative for injury and pain, MS/Extremity: Negative for injury and deformity, Neuro: Negative for headache, weakness, numbness, tingling, and seizure. Eyes: Positive for matting. Psych: Positive for auditory hallucinations, suicide gesture, Negative for anxiety, depression, drug dependence, visual hallucinations, homicidal ideation. Exam: 09:19 Constitutional: This is a well developed patient who is awake, alert, and in no acute jr8 distress. Head/Face: Normocephalic, atraumatic. ENT: Nares patent. No nasal discharge, no septal abnormalities noted. Tympanic membranes are normal and external auditory canals are clear. Oropharynx with no redness, swelling, or masses, exudates, or evidence of obstruction, uvula midline. Mucous membranes moist. Chest/axilla: Normal chest wall appearance and motion. Nontender with no deformity. No lesions are appreciated. Cardiovascular: Regular rate and rhythm with a normal S1 and S2. No gallops, murmurs, or rubs. Normal PMI, no JVD. No pulse deficits. Abdomen/GI: Soft, non-tender, with normal bowel sounds. No distension or tympany. No guarding or rebound. No evidence of tenderness throughout. Back: No spinal tenderness. No costovertebral tenderness. Full range of motion. Skin: Warm, dry with normal turgor. Normal color with no rashes, no lesions, and no evidence of cellulitis. MS/ Extremity: Pulses equal, no cyanosis. Neurovascular intact. Full, normal range of motion. Neuro: Awake and alert, GCS 15, oriented to person, place, time, and situation. Cranial nerves II-XII grossly intact. Motor strength 5/5 in all extremities. Sensory grossly intact. Cerebellar exam normal. Normal gait. 09:19 Eyes: Pupils: equal, round, and reactive to light and accomodation, Extraocular movements: intact throughout, Conjunctiva: normal, Lids and lashes: matting VICKIE lids/lashes. 09:19 Respiratory: the patient does not display signs of respiratory distress, Respirations: normal, Breath sounds: rhonchi, that are mild, are scattered. 09:19 Psych: Behavior/mood is cooperative, Affect is flat, Oriented to person, place, time, Patient has no thoughts/intents to harm self or others. Judgement / Insight is normal. Memory is normal. Delusions/hallucinations are present and described as Pt reports occasional auditory hallucinations that told him to tie his shoe string around his neck. Pt states he wants help and to go to the [facility] because his brain is "scrambled". Currently denies SI . Vital Signs: 09:27 BP 145 / 106; Pulse 75; Resp 15 S; Temp 98.3(O); Pulse Ox 100% on R/A; Weight 90.72 kg jl7 (R); Height 6 ft. (182.88 cm) (R); Pain 0/10; 13:15 BP 119 / 84; Pulse 84; Resp 18; Temp 98.8; Pulse Ox 97% on R/A; kj1 17:00 BP 136 / 79; Pulse 82; Resp 18; Temp 98.5; Pulse Ox 100% on R/A; kj1 21:17 BP 153 / 82; Pulse 46; Resp 18; Temp 98.4; Pulse Ox 100% on R/A; jd2 23:07 Pulse 89; Resp 20; Pulse Ox 99% on R/A; jd2 12/11 04:00 BP 130 / 79; Pulse 84; Resp 18; Temp 98.8(TE); Pulse Ox 100% on R/A; oe 07:00 BP 149 / 98; Pulse 84; Resp 18; Temp 97.7(TE); Pulse Ox 99% on R/A; oe 11:00 BP 132 / 81; Pulse 92; Resp 16; Temp 98.0(O); Pulse Ox 100% on R/A; dh3 17:21 BP 135 / 88; Pulse 98; Resp 16; Temp 98.1(O); Pulse Ox 100% on R/A; dh3 20:00 BP 148 / 87; vo1 20:00 Pulse 86; Resp 16; Temp 98.7(O); Pulse Ox 100% ; vo1 12/12 00:00 BP 144 / 84; Pulse 85; Resp 18; Temp 97.9(O); Pulse Ox 100% ; vo1 04:00 Pulse 80; vo1 04:00 BP 128 / 82; Pulse 80; Resp 16; Temp 97; Pulse Ox 100% ; vo1 08:00 BP 144 / 66; Pulse 79; Resp 18; Temp 97.4; Pulse Ox 100% ; mp1 12:00 BP 132 / 72; Pulse 86; Resp 18; Temp 97; Pulse Ox 98% ; mp1 15:54 BP 139 / 81; Pulse 91; Resp 16; Temp 97.6; Pulse Ox 99% ; mp1 19:56 BP 147 / 69; Pulse 90; Resp 16 S; Temp 97.9(O); Pulse Ox 97% on R/A; Pain 0/10; jd3 12/13 00:12 BP 127 / 77; Pulse 71; Resp 18; Temp 98.0; Pulse Ox 99% ; td 04:13 BP 140 / 88; Pulse 104; Resp 20; Temp 98.4; Pulse Ox 100% ; td 07:02 BP 168 / 101; Pulse 117; Resp 20; Temp 97.9; Pulse Ox 100% ; td 07:15 BP 136 / 78; Pulse 100; Resp 18; Temp 98.5; Pulse Ox 99% on R/A; kj1 11:00 BP 136 / 87; Pulse 81; Resp 18; Temp 98.5; Pulse Ox 100% on R/A; kj1 16:31 BP 132 / 78; Pulse 82; Resp 18; Temp 98.3(TE); Pulse Ox 99% on R/A; mh5 20:00 BP 134 / 81; Pulse 92; Resp 18; Temp 98.2; Pulse Ox 100% on R/A; Pain 0/10; aa8 12/14 00:00 BP 137 / 95; Pulse 86; Resp 16; Temp 98.5; Pulse Ox 98% on R/A; Pain 0/10; aa8 04:00 BP 158 / 98; Pulse 80; Resp 18; Temp 98.6; Pulse Ox 100% on R/A; Pain 0/10; aa8 11:20 BP 144 / 88; Pulse 77; Resp 17; Pulse Ox 99% on R/A; jb1 14:21 BP 129 / 79; Pulse 83; Resp 18; Temp 98.4(O); Pulse Ox 99% on R/A; jb1 12/10 09:27 Body Mass Index 27.12 (90.72 kg, 182.88 cm) jl7 Procedures: 12/11 04:07 I \\T\\ D: Incision and drainage was performed for an abscess of the left dorsal aspect of zuri distal phalanx of left thumb, palmar aspect of distal phalanx of left thumb and left thumbnail Prepped with Betadine, Anesthetized with 5 ml's 1% Lidocaine. .5 bupivicain. Incised with 18 guage. I \\T\\ D: Drained large amount purulent fluid. Dressing: non-Adherent dressing, the patient tolerated the procedure well. Splinting: Splint applied to dorsal aspect of distal phalanx of left thumb and palmar aspect of distal phalanx of left thumb. Foreign Body Removal: Dressinx4s were used to dress the wound, The patient tolerated the removal well. MDM: 12/10 09:18 Patient medically screened. 12/11 15:44 Data reviewed: vital signs. ED course: The patient continues to be stable in the ED and kdr has not require intervention or behavior control since 07:00 this morning. 18:37 ED course: The patient continues to rest comfortably without further interventions at [facility] this time. 12/10 09:18 Order name: Acetaminophen; Complete Time: 11:56 12/10 09:18 Order name: Basic Metabolic Panel; Complete Time: 11:56 [facility] 12/10 09:18 Order name: CBC with Diff; Complete Time: 10:05 [facility] 12/10 09:18 Order name: ETOH Level; Complete Time: 11:56 [facility] 12/10 09:18 Order name: Hepatic Function; Complete Time: 11:56 [facility] 12/10 09:18 Order name: PT-INR; Complete Time: 11:11 [facility] 12/10 09:18 Order name: Ptt, Activated; Complete Time: 11:11 [facility] 12/10 09:18 Order name: Salicylate [facility] 12/10 09:18 Order name: Urine Drug Screen; Complete Time: 13:38 [facility] 12/10 13:24 Order name: Urine Dipstick--Ancillary (enter results) bd 12/10 15:27 Order name: Urine Dipstick-Ancillary; Complete Time: 15:33 EDMS 12/11 07:11 Order name: CBC with Diff; Complete Time: 08:59 zuri 12/11 07:11 Order name: Comprehensive Metabolic Panel; Complete Time: 08:59 zuri 12/10 09:18 Order name: EKG; Complete Time: 09:21 [facility] 12/10 09:18 Order name: EKG - Nurse/Tech; Complete Time: 11:02 [facility] 12/10 09:18 Order name: IV Saline Lock; Complete Time: 09:38 [facility] 12/10 09:18 Order name: Labs collected and sent; Complete Time: 09:38 [facility] 12/10 09:18 Order name: Urine Dipstick-Ancillary (obtain specimen); Complete Time: 14:13 [facility] 12/10 09:55 Order name: Labs - recollect needed; Complete Time: 10:26 bd 12/10 10:17 Order name: Diet Finger Food; Complete Time: 10:19 mb4 12/10 14:39 Order name: Diet Finger Food; Complete Time: 14:40 kj1 12/10 16:54 Order name: Diet Finger Food; Complete Time: 16:54 jl7 12/11 07:11 Order name: Diet Regular; Complete Time: 07:11 zuri 12/11 11:13 Order name: Diet Regular; Complete Time: 11:15 dh3 12/11 15:57 Order name: Diet Regular; Complete Time: 15:59 dh3 12/12 07:59 Order name: Diet Regular; Complete Time: 07:59 em 12/12 12:18 Order name: Diet Ada 1200 Dioni; Complete Time: 12:19 em 12/12 16:37 Order name: Diet Ada 1800 Dioni; Complete Time: 16:38 aa5 12/13 07:13 Order name: Diet Regular; Complete Time: 07:14 kj1 12/13 13:50 Order name: Diet Regular; Complete Time: 13:50 mh5 12/14 07:31 Order name: Diet Regular; Complete Time: 07:33 ch 12/14 11:40 Order name: Diet Regular; Complete Time: 11:41 ch Administered Medications: 12/10 09:45 Drug: NS 0.9% 1000 ml Route: IV; Rate: 1 bolus; Site: left hand; jl7 11:00 Follow up: Response: No adverse reaction; IV Status: Completed infusion; IV Intake: jl7 1000ml 14:13 Drug: Potassium Chloride 40 mEq Route: PO; jl7 14:13 Follow up: Response: No adverse reaction 7 17:24 Drug: HALdol 5 mg Route: IVP; Site: left hand; jl7 19:10 Follow up: Response: No adverse reaction 3 12/11 03:35 Drug: Lidocaine (1 %) 5 ml {Note: administered by Dr. Wilder.} Volume: 5 ml; Route: cc3 Infiltration; Site: affected area; 04:45 Follow up: Response: No adverse reaction 3 03:35 Drug: Marcaine (0.5 %) 10 ml {Note: administered by Dr. Wilder.} Volume: 10 ml; cc3 Route: Infiltration; Site: affected area; 04:45 Follow up: Response: No adverse reaction 3 04:00 Drug: Bactroban Ointment 2 % 1 application {Note: left thumb.} Route: Topical; Site: cc3 affected area; 04:46 Follow up: Response: No adverse reaction psychiatric 04:29 CANCELLED (Other Intervention Used; not available): Unasyn 3 grams IVPB once over 30 cc3 mins; (mix in 100 mL NS) 04:30 Drug: NS 0.9% 1000 ml Route: IV; Rate: 1 bolus; Site: left hand; 3 05:20 Follow up: Response: No adverse reaction; IV Status: Completed infusion; IV Intake: cc3 1000ml 04:30 Drug: Tetanus-Diphtheria Toxoid Adult 0.5 ml {Clinical Unit Educator: [employer]. Exp: cc3 08/04/2020. Lot #: [id number]. } Route: IM; Site: right deltoid; 04:45 Follow up: Response: No adverse reaction 3 04:35 Drug: Zosyn 3.375 grams Route: IVPB; Infused Over: 60 mins; Site: left hand; cc3 05:40 Follow up: Response: No adverse reaction; IV Status: Completed infusion; IV Intake: cc3 100ml 07:15 Drug: Potassium Effervescent Tablet 25 mEq Route: PO; aa5 09:00 Follow up: Response: No adverse reaction aa5 10:56 Drug: Zosyn 3.375 grams Route: IVPB; Infused Over: 60 mins; Site: left hand; aa5 11:56 Follow up: Response: No adverse reaction; IV Status: Completed infusion aa5 17:00 Drug: Zosyn 3.375 grams Route: IVPB; Infused Over: 60 mins; Site: left hand; aa5 18:00 Follow up: Response: No adverse reaction; IV Status: Completed infusion aa5 23:21 Drug: Zosyn 3.375 grams Route: IVPB; Infused Over: 60 mins; Site: left hand; 12/12 02:50 Follow up: Response: No adverse reaction; IV Status: Completed infusion 05:30 Drug: Zosyn 3.375 grams Route: IVPB; Infused Over: 60 mins; Site: left hand; 4 07:00 Follow up: Response: No adverse reaction; IV Status: Completed infusion; IV Intake: em 100ml 12:21 Drug: Zosyn 3.375 grams Route: IVPB; Infused Over: 60 mins; Site: left hand; em 13:30 Follow up: Response: No adverse reaction; IV Status: Completed infusion; IV Intake: em 100ml 18:25 Drug: Zosyn 3.375 grams Route: IVPB; Infused Over: 60 mins; Site: left hand; em 19:30 Follow up: Response: No adverse reaction; IV Status: Completed infusion; IV Intake: jd3 100ml 12/13 00:50 Drug: Zosyn 3.375 grams Route: IVPB; Infused Over: 60 mins; Site: left hand; jd3 01:50 Follow up: Response: No adverse reaction; IV Status: Completed infusion; IV Intake: jd3 100ml 06:47 Drug: Zosyn 3.375 grams Route: IVPB; Infused Over: 60 mins; Site: left hand; jd3 08:00 Follow up: Response: No adverse reaction; IV Status: Completed infusion; IV Intake: em 100ml 17:31 Drug: Zosyn 3.375 grams Route: IVPB; Infused Over: 60 mins; Site: left hand; em 19:06 Follow up: Response: No adverse reaction; IV Status: Completed infusion; IV Intake: em 100ml 12/14 01:16 Drug: Zosyn 3.375 grams Route: IVPB; Infused Over: 60 mins; Site: left hand; jd3 02:15 Follow up: Response: No adverse reaction; IV Status: Completed infusion; IV Intake: jd3 100ml 06:55 Drug: Zosyn 3.375 grams Route: IVPB; Infused Over: 60 mins; Site: left hand; jd3 07:30 Follow up: IV Status: Completed infusion; IV Intake: 100ml 12:23 Drug: Zosyn 3.375 grams Route: IVPB; Infused Over: 60 mins; Site: left hand; 13:30 Follow up: IV Status: Completed infusion Disposition: 09:14 I agree with the assessment and plan of care. [facility] Disposition: 12/11/18 04:14 Transfer ordered to Psych Facility. Diagnosis are Schizophrenia, Cutaneous abscess of left hand - thumb nail, drained. - Reason for transfer: Higher level of care. - Accepting physician is to psych. - Condition is Stable. - Problem is new. - Symptoms have improved. Signatures: Dispatcher [employer] Omaira Barriga Christina, RN RN Alvino Siegel MD MD cha Rittger, Kevin, MD MD kdr Munoz, Edgar, HEALTH AND PHYSICAL EDUCATION TEACHER HEALTH AND PHYSICAL EDUCATION TEACHER Erika Corbett, RN RN aa5 Vidal Nur PA PA jr8 Bryson, James, RN RN jb4 Soo Prater RN RN jl7 Isreal Pennington Jonathon RN RN jd3 Marisa Lugo 3 Corrections: (The following items were deleted from the chart) 12/10 21:04 09:27 Home Meds: Unable to obtain; [place] [id number] 12/11 04:29 04:11 Unasyn 3 grams IVPB once over 30 mins; (mix in 100 mL NS) ordered. [place] [id number] 04:29 04:29 Unasyn 3 grams IVPB once over 30 mins; (mix in 100 mL NS) ordered. [place] [id number] 12/14 08:02 12/10 09:27 Allergies: Unable to obtain; [facility] 12/14 14:44 12/11 04:14 12/11/2018 04:14 Transfer ordered to Psych Facility. Diagnosis is Schizophrenia; Cutaneous abscess of left hand - thumb nail, drained. Reason for transfer: Higher level of care. Accepting physician is to psych. Condition is Stable. Problem is new. Symptoms have improved. [facility]
[2018-12-11] MEDS ORDERED: TETANUS & DIPHTHERIA TOX,ADULT 0.5 ML VIAL ONE (04:23)
[2018-12-11] MEDS ORDERED: NA CHLORIDE 0.9% 1,000 ML ONE (04:23)
[2018-12-11] MEDS ORDERED: PIPER/TAZO/NS 3.375gm 3.375 GM/100 ML BAG ONE ×4 (04:27→23:18)
[2018-12-11] MEDS ORDERED: POTASSIUM 25 MEQ EFFERV TAB ONE (07:14)
[2018-12-11 08:21] LABS: Absolute Lymphocytes (CBC) 2.3 K/uL (0.7-4.9); Basophils % 0.8 % (0-1.3); Hematocrit 37.3 % (39.6-49.0); Lymphocytes % 33.3 % (15.3-44.8); MPV 8.9 fL (7.6-11.3); RBC Red Blood Cell Count 4.09 M/uL (4.33-5.43)
[2018-12-11 08:38] LABS: ALT/SGPT 19 U/L (12-78); AST/SGOT 13 U/L (15-37); Albumin 2.8 g/dL (3.4-5.0); Alkaline Phosphatase 95 U/L (45-117); BUN Blood Urea Nitrogen 8 mg/dL (7-18); Bicarbonate 28 mmol/L (21-32); Bilirubin Total 1.1 mg/dL (0.2-1.0); Glucose Level 104 mg/dL (74-106); Potassium 3.7 mmol/L (3.5-5.1); Protein, Total 6.8 g/dL (6.4-8.2); Sodium Level 146 mmol/L (136-145)
--- NOTE | 2018-12-11 10:35 | EKG ---
Test Date: 2018-12-10 Test Time: 10:49:35 Tissue Specialist: THOMAS MEASUREMENT RESULTS: Intervals: Rate: 108 [place]: 166 QRSD: 92 QT: 368 QTc: 493 [place]: P: 84 [place]: 166 QRS: 52 T: 37 INTERPRETIVE STATEMENTS: Sinus tachycardia with occasional premature ventricular complexes Nonspecific ST and T wave abnormality Abnormal ECG Compared to ECG 11/03/2009 05:40:26 Ventricular premature complex(es) now present ST (T wave) deviation now present Atrial premature complex(es) no longer present Electronically Signed On 12-11-18 10:31:55 CDT by Daniel Meredith
[2018-12-12] MEDS ORDERED: PIPER/TAZO/NS 3.375gm 3.375 GM/100 ML BAG ONE ×3 (05:20→18:16)
[2018-12-13] MEDS ORDERED: PIPER/TAZO/NS 3.375gm 3.375 GM/100 ML BAG ONE ×3 (00:40→16:11)
[2018-12-14] MEDS ORDERED: PIPER/TAZO/NS 3.375gm 3.375 GM/100 ML BAG ONE ×4 (00:38→12:23)
[2018-12-14 16:01] VITALS: O2SAT 99
[2018-12-14 16:02] VITALS: BP 129/79; TEMP 98.4
== END 2018-12-14 14:44 ==
LOC: ER 09:06
PROC: 0H9GXZZ Drainage of Left Hand Skin, External Approach (ICD-10-PCS; principal; 2018-12-11)
DX: F20.9 Schizophrenia, unspecified (principal); L02.512 Cutaneous abscess of left hand; F17.210 Nicotine dependence, cigarettes, uncomplicated
CPT/HCPCS: 36415; 80048; 80076; 80307; 80320; 80329; 81003; 85025; 85610; 85730; 90471; 93005; 96361; 96365; 96366; 96375; 99285; J1630; J2543; J7030

== ENCOUNTER 2019-01-11 17:49 | Emergency (ER) | payer SELFPAY ==
[2019-01-11 18:55] LABS: Absolute Lymphocytes (CBC) 2.3 K/uL (0.7-4.9); Basophils % 0.9 % (0-1.3); Hematocrit 42.3 % (39.6-49.0); Lymphocytes % 25.7 % (15.3-44.8); MPV 9.5 fL (7.6-11.3); RBC Red Blood Cell Count 4.69 M/uL (4.33-5.43)
[2019-01-11] MEDS ORDERED: NA CHLORIDE 0.9% 1,000 ML with FOLIC ACID 1 MG, THIAMINE HCL 100 MG, MULTIVITAMINS INJ ... IV ONE ×4 (19:00)
[2019-01-11 19:17] LABS: ALT/SGPT 21 U/L (12-78); AST/SGOT 23 U/L (15-37); Albumin 3.3 g/dL (3.4-5.0); Alkaline Phosphatase 102 U/L (45-117); BUN Blood Urea Nitrogen 11 mg/dL (7-18); Bicarbonate 26 mmol/L (21-32); Bilirubin Direct 0.2 mg/dL (0-0.2); Bilirubin Total 0.8 mg/dL (0.2-1.0); Glucose Level 105 mg/dL (74-106); Potassium 3.3 mmol/L (3.5-5.1); Protein, Total 7.6 g/dL (6.4-8.2); Sodium Level 139 mmol/L (136-145)
[2019-01-11 19:20] LABS: Protime INR 1.15
[2019-01-11 20:30] LABS: Urine Blood NEGATIVE (NEG); Urine Glucose NEGATIVE (NEG); Urine Protein NEGATIVE (NEG)
[2019-01-11 20:33] LABS: Barbiturates NEGATIVE (NEGATIVE); Benzodiazepines NEGATIVE (NEGATIVE); Cocaine NEGATIVE (NEGATIVE); METHAMPHETAM NEGATIVE (NEGATIVE); Methadone NEGATIVE (NEGATIVE); Opiates NEGATIVE (NEGATIVE); Phencyclidine NEGATIVE (NEGATIVE); THC Cannibis NEGATIVE (NEGATIVE)
--- NOTE | 2019-01-11 21:58 | ER ---
Nurse's Notes [facility] Name: Alban Rodriguez Age: 58 yrs Sex: Male : 1960 Arrival Date: 01/11/2019 Time: 17:50 Bed 17 Private MD: Diagnosis: Alcohol abuse Presentation: 01/11 17:52 Presenting complaint: Patient states: "I've been drinking too much and my brothers are jl7 concerned because I have mentioned wanting to hurt myself but I don't really want to." brother states "He's not taking his meds like he's supposed to. He's self medicating with alcohol.". Transition of care: patient was not received from another setting of care. Onset of symptoms was January 11, 2019. Risk Assessment: Do you want to hurt yourself or someone else? Patient reports no desire to harm self or others. Other: BROTHERS INSIST PT IS SUICIDAL 2/2 ALCOHOLISM. Initial Sepsis Screen: Does the patient meet any 2 criteria? No. Patient's initial sepsis screen is negative. Does the patient have a suspected source of infection? No. Patient's initial sepsis screen is negative. Care prior to arrival: None. 17:52 Method Of Arrival: Law Enforcement: Sheila weaver 17:52 Acuity: TERRENCE 2 jl7 Triage Assessment: 18:04 General: Appears in no apparent distress. comfortable, unkempt, Behavior is bp cooperative, appropriate for age, anxious. 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 Pain: Denies pain. EENT: No deficits noted. Neuro: Level of Consciousness is awake, alert, obeys commands, Oriented to person, place, time, situation, Appropriate for age. Cardiovascular: Rhythm is sinus tachycardia. Respiratory: No deficits noted. GI: No signs and/or symptoms were reported involving the gastrointestinal system. : No signs and/or symptoms were reported regarding the genitourinary system. Derm: No deficits noted. Musculoskeletal: No deficits noted. Historical: - Allergies: 17:56 No Known Allergies; jl7 - Home Meds: 17:56 risperidone 1 mg Oral tab every night [Active]; butropion 300 mg daily [Active]; jl7 amlodipine oral [Active]; Hydroxyzine Oral [Active]; - PMHx: 17:56 Asthma; psoriasis; Schizophrenia; jl7 - PSHx: 17:56 Knee surgery; jl7 - Immunization history:: Adult Immunizations unknown. - Social history:: Smoking status: Patient uses tobacco products, smokes 4 packs per day, Patient uses alcohol, on a daily basis. 3 16 oz beers, 10% alcohol, . - Ebola Screening: : No symptoms or risks identified at this time. Screenin:06 Abuse screen: Denies threats or abuse. Denies injuries from another. Nutritional bp screening: No deficits noted. Tuberculosis screening: No symptoms or risk factors identified. Fall Risk None identified. Assessment: 18:05 General: SEE TRIAGE NOTE. PT CONTINUES TO DENY SI/HI OR HALLUCINATIONS. PT NOT bp RESPONDING TO INTERNAL STIMULI, AMBULATORY WITH STEADY GAIT. 18:29 Reassessment: MED REQUESTED FROM PHARMACY. bp 19:21 Reassessment: Patient appears in no apparent distress at this time. Patient resting, lp1 comfortably. General: Behavior is calm, cooperative. 20:30 Reassessment: Patient appears in no apparent distress at this time. No changes from lp1 previously documented assessment. Patient and/or family updated on plan of care and expected duration. Pain level reassessed. 21:39 Reassessment: Patient appears in no apparent distress at this time. Patient is alert, lp1 oriented x 3, equal unlabored respirations, skin warm/dry/pink. Patient denies pain at this time. 21:45 Reassessment: [facility] at bedside. lp1 22:02 Reassessment: Called patient's brother, Marino at [phone], for discharge ride home.lp1 22:22 Reassessment: Patient is alert, oriented x 3, equal unlabored respirations, skin lp1 warm/dry/pink. Reassessment: Marino at bedside to ride home. Neuro: Gait is steady. Vital Signs: 17:56 BP 112 / 81; Pulse 122; Resp 16 S; Temp 97.9(O); Pulse Ox 98% on R/A; jl7 18:07 BP 115 / 68; Pulse 106; Resp 16; Pulse Ox 97% ; bp 19:30 BP 106 / 67; Pulse 97; Resp 20; Pulse Ox 97% on R/A; lp1 20:00 BP 102 / 54; Pulse 95; Resp 20; Pulse Ox 97% on R/A; lp1 20:30 BP 93 / 67; Pulse 93; Resp 16; Pulse Ox 97% on R/A; lp1 21:30 BP 96 / 55; Pulse 96; Resp 14; Pulse Ox 97% on R/A; lp1 22:21 BP 129 / 76; Pulse 88; Resp 17; Pulse Ox 96% on R/A; lp1 ED Course: 17:50 Patient arrived in ED. mr 17:55 Triage completed. jl7 17:56 Arm band placed on right wrist. jl7 18:01 Alvino Carnes PA is PHCP. cp 18:01 Ty Santana MD is Attending Physician. cp 18:06 Patient has correct armband on for positive identification. Bed in low position. Call bp light in reach. Side rails up X2. Adult w/ patient. 18:28 Guru Belcher, NORAH is Primary Nurse. bp 18:58 EKG done, by ED staff, reviewed by Alvino WARD. [facility] 19:48 Alvino Wilder MD is Attending Physician. cp 22:02 No provider procedures requiring assistance completed. lp1 22:21 IV discontinued, No redness/swelling at site. Pressure dressing applied. lp1 Administered Medications: 18:30 Drug: Banana Bag - (NS 0.9% 1000 ml, foLIC Acid 1 mg, Thiamine 100 mg, Multivitamin 1 bp amp) Route: IV; Rate: 500 ml/hr; Site: right forearm; 21:38 Follow up: IV Status: Completed infusion; IV Intake: 1000ml lp1 Intake: 21:38 IV: 1000ml; Total: 1000ml. lp1 Outcome: 21:58 Discharge ordered by MD. cp 22:21 Discharged to home ambulatory, with family. lp1 22:21 Condition: good 22:21 Discharge instructions given to patient, family, Instructed on discharge instructions, follow up and referral plans. Demonstrated understanding of instructions, follow-up care. 22:23 Patient left the ED. lp1 Signatures: Jacquelin Stewart mr CalderonLavinia, RN RN lp1 Alvino Carnes PA PA Soo Donnelly RN RN 7 Nuzhat Amanda [facility] Guru Belcher, RN RN bp Corrections: (The following items were deleted from the chart) 18:04 17:52 Risk Assessment: Do you want to hurt yourself or someone else? Patient reports bp desire/thoughts of hurting themselves or someone else. Provider notified. jl7
--- NOTE | 2019-01-11 21:59 | EDPHYS ---
Physician Documentation [facility] Name: Alban Rodriguez Age: 58 yrs Sex: Male : 1960 Arrival Date: 01/11/2019 Time: 17:50 Bed 17 Private MD: ED Physician Alvino Wilder HPI: 01/11 18:30 This 58 yrs old Male presents to ER via Law Enforcement with complaints of cp Alcohol Withdrawal. 18:30 The patient presents to the emergency department with a history of substance abuse, cp Type: beer. Past psychiatric history: Prior diagnosis: schizophrenia, the patient has had a prior suicide gesture, placed shoe lace around neck, the patient has a previous inpatient psychiatric history. Patient brought to ED by brothers due to concern for alcohol abuse, not taking psych meds and reportedly making statement that he feels like situation would be better if he were not around. Patient recently released from psych facility for alcohol abuse. Historical: - Allergies: 17:56 No Known Allergies; jl7 - Home Meds: 17:56 risperidone 1 mg Oral tab every night [Active]; butropion 300 mg daily [Active]; jl7 amlodipine oral [Active]; Hydroxyzine Oral [Active]; - PMHx: 17:56 Asthma; psoriasis; Schizophrenia; jl7 - PSHx: 17:56 Knee surgery; jl7 - Immunization history:: Adult Immunizations unknown. - Social history:: Smoking status: Patient uses tobacco products, smokes 4 packs per day, Patient uses alcohol, on a daily basis. 3 16 oz beers, 10% alcohol, . - Ebola Screening: : No symptoms or risks identified at this time. ROS: 18:35 Constitutional: Negative for body aches, chills, fever, poor PO intake. cp 18:35 Eyes: Negative for injury, pain, redness, and discharge. cp 18:35 ENT: Negative for drainage from ear(s), ear pain, sore throat, difficulty swallowing, difficulty handling secretions. 18:35 Cardiovascular: Negative for chest pain, edema. 18:35 Respiratory: Negative for cough, shortness of breath, wheezing. 18:35 Abdomen/GI: Negative for abdominal pain, nausea, vomiting, and diarrhea, black/tarry stool, rectal bleeding. 18:35 Back: Negative for injury or acute deformity, decreased range of motion. 18:35 : Negative for urinary symptoms. 18:35 Skin: Negative for rash. 18:35 Neuro: Negative for altered mental status, headache, seizure activity, syncope, weakness. 18:35 Psych: Positive for alcohol use, Negative for auditory hallucinations, visual hallucinations, homicidal ideation, suicide gesture, suicidal ideation. 18:35 All other systems are negative. Exam: 18:55 Constitutional: The patient appears in no acute distress, alert, awake, cp non-diaphoretic, non-toxic, well developed, well nourished. 18:55 Head/Face: Normocephalic, atraumatic. cp 18:55 Eyes: Periorbital structures: appear normal, Pupils: equal, round, and reactive to light and accomodation, Extraocular movements: intact throughout, Conjunctiva: normal, no exudate, no injection, Sclera: no appreciated abnormality, Lids and lashes: appear normal, bilaterally. 18:55 ENT: External ear(s): are unremarkable, Ear canal(s): are normal, clear, TM's: dullness, bilaterally, Nose: is normal, Mouth: Lips: moist, Oral mucosa: moist, Posterior pharynx: is normal, airway is patent, no erythema, no exudate. 18:55 Neck: ROM/movement: is normal, is supple, without pain, no range of motions limitations, no meningismus, no nuchal rigidity. 18:55 Chest/axilla: Inspection: normal, Palpation: is normal, no crepitus, no tenderness. 18:55 Cardiovascular: Rate: tachycardic, Rhythm: regular, Edema: is not appreciated, JVD: is not appreciated. 18:55 Respiratory: the patient does not display signs of respiratory distress, Respirations: normal, no use of accessory muscles, no retractions, no splinting, no tachypnea, labored breathing, is not present, Breath sounds: are clear throughout, no decreased breath sounds, no stridor, no wheezing. 18:55 Abdomen/GI: Inspection: abdomen appears normal, Palpation: abdomen is soft and non-tender, in all quadrants. 18:55 Back: pain, is absent. 18:55 Skin: no rash present. 18:55 Neuro: Orientation: to person, place \T\ time. Mentation: is normal, Motor: moves all fours, strength is normal. 18:55 Psych: Behavior/mood is cooperative, Affect is calm, Patient has no thoughts/intents to harm self or others. Judgement / Insight is impaired. Delusions/hallucinations are not present. 19:09 ECG was reviewed by the Attending Physician. cp Vital Signs: 17:56 BP 112 / 81; Pulse 122; Resp 16 S; Temp 97.9(O); Pulse Ox 98% on R/A; jl7 18:07 BP 115 / 68; Pulse 106; Resp 16; Pulse Ox 97% ; bp 19:30 BP 106 / 67; Pulse 97; Resp 20; Pulse Ox 97% on R/A; lp1 20:00 BP 102 / 54; Pulse 95; Resp 20; Pulse Ox 97% on R/A; lp1 20:30 BP 93 / 67; Pulse 93; Resp 16; Pulse Ox 97% on R/A; lp1 21:30 BP 96 / 55; Pulse 96; Resp 14; Pulse Ox 97% on R/A; lp1 22:21 BP 129 / 76; Pulse 88; Resp 17; Pulse Ox 96% on R/A; lp1 MDM: 18:09 Patient medically screened. cp 18:35 Differential diagnosis: drug withdrawal. acute psychotic break, depression, psychosis cp secondary to non-compliance, alcohol abuse, illegal drug abuse. 21:58 Data reviewed: vital signs, nurses notes, lab test result(s), EKG, and as a result, I cp will discharge patient. 21:58 Counseling: I had a detailed discussion with the patient and/or guardian regarding: the cp historical points, exam findings, and any diagnostic results supporting the discharge/admit diagnosis, lab results, the need for outpatient follow up, a psychiatrist, to return to the emergency department if symptoms worsen or persist or if there are any questions or concerns that arise at home. Response to treatment: the patient's symptoms have markedly improved after treatment, VSS. Patient evaluated by [facility] and felt to be stable for outpatient treatment. 01/11 18:18 Order name: Acetaminophen cp 01/11 18:18 Order name: Basic Metabolic Panel cp 01/11 18:18 Order name: CBC with Diff cp 01/11 18:18 Order name: ETOH Level; Complete Time: 19:48 cp 01/11 21:57 Interpretation: Reviewed. cp 01/11 18:18 Order name: Hepatic Function; Complete Time: 19:48 cp 01/11 18:18 Order name: PT-INR; Complete Time: 19:48 cp 01/11 18:18 Order name: Ptt, Activated; Complete Time: 19:48 cp 01/11 18:18 Order name: Salicylate; Complete Time: 21:57 cp 01/11 18:18 Order name: Urine Drug Screen; Complete Time: 21:57 cp 01/11 18:18 Order name: Magnesium; Complete Time: 19:48 cp 01/11 18:25 Order name: Acetaminophen Level; Complete Time: 19:48 EDMS 01/11 18:25 Order name: Basic Metabolic Panel; Complete Time: 19:48 EDMS 01/11 18:25 Order name: CBC with Automated Diff; Complete Time: 19:48 EDMS 01/11 20:19 Order name: Urine Dipstick--Ancillary (enter results); Complete Time: 21:57 cm6 01/11 18:18 Order name: EKG; Complete Time: 18:26 cp 01/11 18:18 Order name: EKG - Nurse/Tech; Complete Time: 18:55 cp 01/11 18:18 Order name: IV Saline Lock; Complete Time: 18:52 cp 01/11 18:18 Order name: Labs collected and sent; Complete Time: 18:52 cp 01/11 18:18 Order name: Urine Dipstick-Ancillary (obtain specimen); Complete Time: 20:11 cp EC:09 Rate is 101 beats/min. Rhythm is regular. NH interval is normal. QRS interval is cp normal. QT interval is normal. T waves are Inverted in lead V2. Interpreted by me. Reviewed by me. Administered Medications: 18:30 Drug: Banana Bag - (NS 0.9% 1000 ml, foLIC Acid 1 mg, Thiamine 100 mg, Multivitamin 1 bp amp) Route: IV; Rate: 500 ml/hr; Site: right forearm; 21:38 Follow up: IV Status: Completed infusion; IV Intake: 1000ml lp1 Disposition: 01/12 06:18 Co-signature as Attending Physician, Alvino CUELLO I agree with the assessment and zuri plan of care. Disposition: 01/11/19 21:58 Discharged to Home. Impression: Alcohol abuse. - Condition is Stable. - Discharge Instructions: Alcohol Use Disorder, Alcohol Abuse and Nutrition. - Medication Reconciliation Form, Thank You Letter, Antibiotic Education, Prescription Opioid Use form. - Follow up: Private Physician; When: 1 - 2 days; Reason: Recheck today's complaints. - Problem is an ongoing problem. - Symptoms have improved. Signatures: Dispatcher [employer] EDAlvino Orourke MD MD cha Pena, Laura, RN RN lp1 Alvino Carnes PA PA cp Leal, Jahala RN RN jl7 Guru Belcher RN RN bp Corrections: (The following items were deleted from the chart) 01/11 22:23 21:58 01/11/2019 21:58 Discharged to Home. Impression: Alcohol abuse. Condition is lp1 Stable. Forms are Medication Reconciliation Form, Thank You Letter, Antibiotic Education, Prescription Opioid Use. Follow up: Private Physician; When: 1 - 2 days; Reason: Recheck today's complaints. Problem is an ongoing problem. Symptoms have improved. cp
[2019-01-11 22:33] VITALS: TEMP 97.9
[2019-01-11 22:41] VITALS: BP 129/76; O2SAT 96
--- NOTE | 2019-01-12 12:13 | EKG ---
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
== END 2019-01-11 22:23 | disposition home or self-care (01) ==
LOC: ER 17:49
DX: F10.10 Alcohol abuse, uncomplicated (principal); F17.210 Nicotine dependence, cigarettes, uncomplicated
CPT/HCPCS: 36415; 80048; 80076; 80307; 80320; 80329; 81003; 83735; 85025; 85610; 85730; 93005; 96365; 96366; 99284; J3411; J7030

== ENCOUNTER 2020-01-20 21:29 | Emergency (ER) | payer SELFPAY ==
--- OUTSIDE RECORDS SUMMARY | 2020-01-20 21:32 | XMS REPORT | Continuity of Care Document ---
:1960 Author Organization [facility] t Address [address] [place] [address] Care Team Providers Name Role Phone Unavailable Unavailable Unavailable Payers Payer Name Policy Type Policy Number Effective Date Expiration Date S ource Problems This patient has no known problems. Allergies, Adverse Reactions, Alerts Allergy Allergy Status Severity Reaction(s) Onset Inactive Treating Comm ents Source Name Type Date Date Clinician No Known DA Active U 2018-03 [facility]ie 04-26 [facility] s 00:00: d 00 [facility] Medications This patient has no known medications. Procedures This patient has no known procedures. Results Test Description Test Time Test Comments Results Result Comments Source BASIC METABOLIC PANEL 2019-06-05 21:46:00 Test Item Value Reference Range Interpretation Comme nts SODIUM (test code = NA) 137 mmol/l 134.0-147.0 N POTASSIUM (test code = K) 2.7 mmol/L 3.6-5.2 L CHLORIDE (test code = CL) 97 mmol/l 98.0-107.0 L CARBON DIOXIDE (test code = CO2) 35.3 mmol/l 21.0-33.0 H ANION GAP (test code = GAP) 8.5 0-20 N GLUCOSE (test code = GLU) 144 mg/dl 70.0-110.0 H BLOOD UREA NITROGEN (test code = BUN) 10 mg/dl 7.0-18.0 N CREATININE (test code = CREAT) 0.98 mg/dL 0.60-1.30 N GFR NON BLACK (test code = GFRNONBLACK) 83 mL/min 80-90 N GFR BLACK (test code = GFRBLACK) 100 mL/min 97-109 N CALCIUM (test code = CA) 9.6 mg/dl 8.0-10.5 N Specimen comments: Clean CatchHEPATIC FUNCTION PANEL [id number] 21:46:00 Test Item Value Reference Range Interpretation Comments TOTAL PROTEIN (test code = PROT) 6.7 GM/DL 6.0-8.1 N ALBUMIN (test code = ALB) 2.7 gm/dL 3.2-4.7 L BILIRUBIN TOTAL (test code = 0.3 mg/dl 0.0-1.0 N BILT) BILIRUBIN DIRECT (test code = 0.1 mg/dl 0.0-0.3 N BILD) SGOT/AST (test code = AST) 31 Units/L 15.0-37.0 N SGPT/ALT (test code = ALT) 35 Units/L 12.0-78.0 N ALKALINE PHOSPHATASE TOTAL (test 173 Units/L 50.0-136.0 H code = ALKP) Specimen comments: Clean [id number] 21:46:00 Test Item Value Reference Range Interpretation Comments LIPASE (test code = LIP) 270 Units/L 65.0-230.0 H Specimen comments: Clean [id number] 21:46:00 Test Item Value Reference Range Interpretation Comments TROPONIN-I (test 0.02 NG/ML 0.00-0.06 N REFERENCE R RAF TROPONIN code = TROPI) I HEALTHY ROSALIE VIDUALS: <0.06 ng/mL R/O ISCHEMIA: 0.07 - 0.60 ng/mL CUT-OFF R RAF FOR AMI: 0.60 - 1. 5 ng/mL Specimen comments: Clean CatchURINALYSIS [id number] 21:39:00 Test Item Value Reference Range Interpretation Comments UA COLOR (test code = COLU) YELLOW UA APPEARANCE (test code = CLEAR APPU) UA GLUCOSE DIPSTICK (test NORMAL mg/dl NORMAL code = DGLUU) UA BILIRUBIN DIPSTICK (test NEGATIVE mg/dL NEGATIVE code = BILU) UA KETONE DIPSTICK (test NEGATIVE mg/dl NEGATIVE code = KETU) UA SPECIFIC GRAVITY (test 1.015 1.000-1.030 code = SGU) UA BLOOD DIPSTICK (test NEGATIVE Monty/micL NEGATIVE code = LORAINE) UA PH DIPSTICK (test code = 6.0 5.0-9.0 VIVIANA) UA PROTEIN DIPSTICK (test 15 mg/dl mg/dl NEGATIVE A code = PROU) UA UROBILINIOGEN DIPSTICK 1.0 mg/dl mg/dl NORMAL A (test code = URO) UA NITRITE DIPSTICK (test NEGATIVE NEGATIVE code = DEREK) UA LEUKOCYTE ESTERASE NEGATIVE Shena/micL NEGATIVE DIPSTICK (test code = LEUU) UA WBC (test code = WBCU) 2-5 WBC/HPF NONE UA RBC (test code = RBCU) 0-2 RBC/HPF 0-3 UA EPITHELIAL CELLS (test 0-1 EPI/HPF 0-3 code = EPIU) UA BACTERIA (test code = FEW NONE BACU) UA RENAL CELLS (test code = FEW JORY) UA HYALINE CAST (test code 2-5 /LPF <1/LPF = HYALU) UA WHITE BLOOD CELL CAST 0-1 /LPF <1/LPF (test code = WBCCU) UA MUCUS (test code = MUCU) 1+ Specimen comments: Clean CatchCBC W/AUTO [id number] 21:32:00 Test Item Value Reference Range Interpretation Comments WHITE BLOOD CELL (test code = 7.2 K/mm3 4.5-11.0 N WBC) RED BLOOD CELL (test code = 4.29 M/mm3 4.40-5.90 L RBC) HEMOGLOBIN (test code = HGB) 13.0 gm/dL 13.0-17.0 N HEMATOCRIT (test code = HCT) 38.9 % 36.0-48.0 N MEAN CELL VOLUME (test code = 90.7 UM3 80.0-94.0 N MCV) MEAN CELL HGB (test code = MCH) 30.3 UUG 25.5-32.5 N MEAN CELL HGB CONCETRATION 33.4 gm/dL 29.0-35.5 N (test code = MCHC) RED CELL DISTRIBUTION WIDTH 13.0 % 11.5-15.0 N (test code = RDW) RED CELL DISTRIBUTION WIDTH SD 42.1 fL 34.8-50.2 N (test code = RDW-SD) PLATELET COUNT (test code = 191 K/mm3 150-400 N PLT) MEAN PLATELET VOLUME (test code 11.0 fl 7.4-10.4 H = MPV) NEUTROPHIL % (test code = NT%) 61.8 % 49.0-76.0 N IMMATURE GRANULOCYTE % (test 0.4 % 0.0-0.4 N code = IG%) LYMPHOCYTE % (test code = LY%) 26.4 % 23.0-38.0 N MONOCYTE % (test code = MO%) 9.5 % 1.0-10.0 N EOSINOPHIL % (test code = EO%) 1.2 % 1.0-5.0 N BASOPHIL % (test code = BA%) 0.7 % 0.0-1.0 N NEUTROPHIL # (test code = NT#) 4.5 K/mm3 2.4-6.3 N IMMATURE GRANULOCYTE # (test 0.03 x10 3/uL 0.00-0.07 N code = IG#) LYMPHOCYTE # (test code = LY#) 1.9 K/mm3 1.2-4.0 N MONOCYTE # (test code = MO#) 0.7 K/mm3 0.0-0.6 H EOSINOPHIL # (test code = EO#) 0.1 K/MM3 0.0-0.7 N BASOPHIL # (test code = BA#) 0.1 K/mm3 0.0-0.2 N URINALYSIS [id number] 21:30:00 Test Item Value Reference Range Interpretation Comments UA COLOR (test code = COLU) YELLOW UA APPEARANCE (test code = CLEAR APPU) UA GLUCOSE DIPSTICK (test NORMAL mg/dl NORMAL code = DGLUU) UA BILIRUBIN DIPSTICK (test NEGATIVE mg/dL NEGATIVE code = BILU) UA KETONE DIPSTICK (test NEGATIVE mg/dl NEGATIVE code = KETU) UA SPECIFIC GRAVITY (test 1.015 1.000-1.030 code = SGU) UA BLOOD DIPSTICK (test NEGATIVE Monty/micL NEGATIVE code = LORAINE) UA PH DIPSTICK (test code = 6.0 5.0-9.0 VIVIANA) UA PROTEIN DIPSTICK (test 15 mg/dl mg/dl NEGATIVE A code = PROU) UA UROBILINIOGEN DIPSTICK 1.0 mg/dl mg/dl NORMAL A (test code = URO) UA NITRITE DIPSTICK (test NEGATIVE NEGATIVE code = DEREK) UA LEUKOCYTE ESTERASE NEGATIVE Shena/micL NEGATIVE DIPSTICK (test code = LEUU) UA WBC (test code = WBCU) WBC/HPF NONE UA RBC (test code = RBCU) RBC/HPF 0-3 UA EPITHELIAL CELLS (test EPI/HPF 0-3 code = EPIU) UA BACTERIA (test code = NONE BACU) Specimen comments: Clean CatchPO [id number] 11:07:53 Test Item Value Reference Range Interpretation Comments Glucose POC (test 127 mg/dL 70-115 H If you con senior designer your code = Glucose POC) patient critically ill, the Marcelino-Accu Check Infrom II meter should not be used for Glucose determination. Draw a venous Glucose and send to the main Lab for analysis. POC [id number] 06:01:52 Test Item Value Reference Range Interpretation Comments Glucose POC (test 109 mg/dL 70-115 If you con senior designer your code = Glucose POC) patient critically ill, the Marcelino-Accu Check Infrom II meter should not be used for Glucose determination. Draw a venous Glucose and send to the main Lab for analysis. POC [id number] 19:03:55 Test Item Value Reference Range Interpretation Comments Glucose POC (test 217 mg/dL 70-115 H If you con senior designer your code = Glucose POC) patient critically ill, the Marcelino-Accu Check Infrom II meter should not be used for Glucose determination. Draw a venous Glucose and send to the main Lab for analysis. POC [id number] 15:38:32 Test Item Value Reference Range Interpretation Comments Glucose POC (test 116 mg/dL 70-115 H If you con senior designer your code = Glucose POC) patient critically ill, the Marcelino-Accu Check Infrom II meter should not be used for Glucose determination. Draw a venous Glucose and send to the main Lab for analysis. POC [id number] 11:14:21 Test Item Value Reference Range Interpretation Comments Glucose POC (test 167 mg/dL 70-115 H Notify RN or MDIf you code = Glucose POC) consider your patient critically ill, the Marcelino-Accu Chec k Infrom II meter should not be used for Glucos e determination. Draw a venous Glucose and send to the main Lab for analysis. POC [id number] 06:01:00 Test Item Value Reference Range Interpretation Comments Glucose POC (test 88 mg/dL 70-115 Notify RN or MDIf you code = Glucose POC) consider your patient critically ill, the Marcelino-Accu Chec k Infrom II meter should not be used for Glucos e determination. Draw a venous Glucose and send to the main Lab for analysis. POC [id number] 20:10:55 Test Item Value Reference Range Interpretation Comments Glucose POC (test 140 mg/dL 70-115 H Notify RN or MDIf you code = Glucose POC) consider your patient critically ill, the Marcelino-Accu Chec k Infrom II meter should not be used for Glucos e determination. Draw a venous Glucose and send to the main Lab for analysis. POC [id number] 15:14:52 Test Item Value Reference Range Interpretation Comments Glucose POC (test 125 mg/dL 70-115 H Notify RN or MDIf you code = Glucose POC) consider your patient critically ill, the Marcelino-Accu Chec k Infrom II meter should not be used for Glucos e determination. Draw a venous Glucose and send to the main Lab for analysis. POC [id number] 11:34:58 Test Item Value Reference Range Interpretation Comments Glucose POC (test 111 mg/dL 70-115 If you con senior designer your code = Glucose POC) patient critically ill, the Marcelino-Accu Check Infrom II meter should not be used for Glucose determination. Draw a venous Glucose and send to the main Lab for analysis. POC [id number] 06:14:53 Test Item Value Reference Range Interpretation Comments Glucose POC (test 97 mg/dL 70-115 If you con senior designer your code = Glucose POC) patient critically ill, the Marcelino-Accu Check Infrom II meter should not be used for Glucose determination. Draw a venous Glucose and send to the main Lab for analysis. POC [id number] 19:34:53 Test Item Value Reference Range Interpretation Comments Glucose POC (test 146 mg/dL 70-115 H If you con senior designer your code = Glucose POC) patient critically ill, the Marcelino-Accu Check Infrom II meter should not be used for Glucose determination. Draw a venous Glucose and send to the main Lab for analysis. POC [id number] 15:49:56 Test Item Value Reference Range Interpretation Comments Glucose POC (test 141 mg/dL 70-115 H Notify RN or MDIf you code = Glucose POC) consider your patient critically ill, the Marcelino-Accu Chec k Infrom II meter should not be used for Glucos e determination. Draw a venous Glucose and send to the main Lab for analysis. POC [id number] 11:00:26 Test Item Value Reference Range Interpretation Comments Glucose POC (test 159 mg/dL 70-115 H If you con senior designer your code = Glucose POC) patient critically ill, the Marcelino-Accu Check Infrom II meter should not be used for Glucose determination. Draw a venous Glucose and send to the main Lab for analysis. POC [id number] 06:00:58 Test Item Value Reference Range Interpretation Comments Glucose POC (test 129 mg/dL 70-115 H If you con senior designer your code = Glucose POC) patient critically ill, the Marcelino-Accu Check Infrom II meter should not be used for Glucose determination. Draw a venous Glucose and send to the main Lab for analysis. POC [id number] 19:47:52 Test Item Value Reference Range Interpretation Comments Glucose POC (test 157 mg/dL 70-115 H If you con senior designer your code = Glucose POC) patient critically ill, the Marcelino-Accu Check Infrom II meter should not be used for Glucose determination. Draw a venous Glucose and send to the main Lab for analysis. POC [id number] 15:46:22 Test Item Value Reference Range Interpretation Comments Glucose POC (test 152 mg/dL 70-115 H If you con senior designer your code = Glucose POC) patient critically ill, the Marcelino-Accu Check Infrom II meter should not be used for Glucose determination. Draw a venous Glucose and send to the main Lab for analysis. POC [id number] 10:56:21 Test Item Value Reference Range Interpretation Comments Glucose POC (test 168 mg/dL 70-115 H Notify RN or MDIf you code = Glucose POC) consider your patient critically ill, the Marcelino-Accu Chec k Infrom II meter should not be used for Glucos e determination. Draw a venous Glucose and send to the main Lab for analysis. POC [id number] 06:27:53 Test Item Value Reference Range Interpretation Comments Glucose POC (test 106 mg/dL 70-115 If you con senior designer your code = Glucose POC) patient critically ill, the Marcelino-Accu Check Infrom II meter should not be used for Glucose determination. Draw a venous Glucose and send to the main Lab for analysis. POC [id number] 19:13:47 Test Item Value Reference Range Interpretation Comments Glucose POC (test 153 mg/dL 70-115 H If you con senior designer your code = Glucose POC) patient critically ill, the Marcelino-Accu Check Infrom II meter should not be used for Glucose determination. Draw a venous Glucose and send to the main Lab for analysis. POC [id number] 15:20:15 Test Item Value Reference Range Interpretation Comments Glucose POC (test 163 mg/dL 70-115 H Notify RN or MDIf you code = Glucose POC) consider your patient critically ill, the Marcelino-Accu Chec k Infrom II meter should not be used for Glucos e determination. Draw a venous Glucose and send to the main Lab for analysis. POC [id number] 11:00:48 Test Item Value Reference Range Interpretation Comments Glucose POC (test 115 mg/dL 70-115 Notify RN or MDIf you code = Glucose POC) consider your patient critically ill, the Marcelino-Accu Chec k Infrom II meter should not be used for Glucos e determination. Draw a venous Glucose and send to the main Lab for analysis. POC [id number] 06:07:23 Test Item Value Reference Range Interpretation Comments Glucose POC (test 108 mg/dL 70-115 If you con senior designer your code = Glucose POC) patient critically ill, the Marcelino-Accu Check Infrom II meter should not be used for Glucose determination. Draw a venous Glucose and send to the main Lab for analysis. RPR [id number] 20:15:54 Test Item Value Reference Range Interpretation Comments RPR Qual (test code = RPR Qual) Non-Reactive Non-Reactive Reactive Control (test code = Reactive Reactive Control) Weak Reactive Control (test Weak Reactive code = Weak Reactive Control) Non-Reactive Control (test code Non-Reactive = Non-Reactive Control) Lot # (test code = Lot #) [id number] N Expiration Dt (test code = 10.31.20 N Expiration Dt) POC [id number] 19:18:20 Test Item Value Reference Range Interpretation Comments Glucose POC (test 215 mg/dL 70-115 H Notify RN or MDIf you code = Glucose POC) consider your patient critically ill, the Marcelino-Accu Chec k Infrom II meter should not be used for Glucos e determination. Draw a venous Glucose and send to the main Lab for analysis. POC [id number] 16:56:13 Test Item Value Reference Range Interpretation Comments Glucose POC (test 149 mg/dL 70-115 H If you con senior designer your code = Glucose POC) patient critically ill, the Marcelino-Accu Check Infrom II meter should not be used for Glucose determination. Draw a venous Glucose and send to the main Lab for analysis. POC [id number] 10:55:47 Test Item Value Reference Range Interpretation Comments Glucose POC (test 135 mg/dL 70-115 H Notify RN or MDIf you code = Glucose POC) consider your patient critically ill, the Marcelino-Accu Chec k Infrom II meter should not be used for Glucos e determination. Draw a venous Glucose and send to the main Lab for analysis. Complete Blood Count without [id number] 07:46:28 Test Item Value Reference Range Interpretation Comments WBC (test code = WBC) 8.2 x10 4.4-10.5 RBC (test code = RBC) 4.59 x10 4.10-5.70 Hgb (test code = Hgb) 14.2 g/dL 13.4-17.4 Hct (test code = Hct) 43.5 % 38.7-52.0 MCV (test code = MCV) 94.80 fL 80.00-100.00 MCH (test code = MCH) 30.9 pg 27.0-32.5 MCHC (test code = MCHC) 32.60 g/dL 32.00-37.50 RDW CV (test code = RDW CV) 14.8 % 11.5-14.5 H Platelets (test code = Platelets) 171.0 x10 140.0-440.0 MPV (test code = MPV) 11.7 fL N nRBC (test code = nRBC) 0 N NRBC Abs (test code = NRBC Abs) 0.00 x10 N IPF (test code = IPF) 0 % N Comprehensive Metabolic [id number] 07:28:21 Test Item Value Reference Range Interpretation Comments Sodium Level (test code = Sodium 142.0 mmol/L 135.0-145.0 Level) Potassium Level (test code = 4.4 mmol/L 3.5-5.1 Potassium Level) Chloride Level (test code = 103 mmol/L 98-105 Chloride Level) CO2 (test code = CO2) 28 mmol/L 22-29 Anion Gap (test code = Anion 11 mmol/L 7-16 Gap) BUN (test code = BUN) 11.40 mg/dL 6.00-20.00 Creatinine Level (test code = 0.60 mg/dL 0.70-1.20 L Creatinine Level) BUN/Creat Ratio (test code = 19 N BUN/Creat Ratio) Glucose Level (test code = 95 mg/dL 70-115 Glucose Level) Calcium Level (test code = 9.9 mg/dL 8.3-10.5 Calcium Level) Alk Phos (test code = Alk Phos) 92 U/L 40-129 Bilirubin Total (test code = 0.4 mg/dL 0.1-0.9 Bilirubin Total) Albumin Level (test code = 3.9 g/dL 3.5-5.2 Albumin Level) Protein Total (test code = 7.0 g/dL 6.4-8.3 Protein Total) ALT (test code = ALT) 20 U/L 1-41 AST (test code = AST) 25 U/L 1-40 Globulin (test code = Globulin) 3.1 g/dL 2.9-3.1 A/G Ratio (test code = A/G 1.3 ratio N Ratio) Comprehensive Metabolic [id number] 07:28:21 Test Item Value Reference Range Interpretation Comments Sodium Level (test 142.0 mmol/L 135.0-145.0 code = Sodium Level) Potassium Level 4.4 mmol/L 3.5-5.1 (test code = Potassium Level) Chloride Level (test 103 mmol/L 98-105 code = Chloride Level) CO2 (test code = 28 mmol/L 22-29 CO2) Anion Gap (test code 11 mmol/L 7-16 = Anion Gap) BUN (test code = 11.40 mg/dL 6.00-20.00 BUN) Creatinine Level 0.60 mg/dL 0.70-1.20 L (test code = Creatinine Level) BUN/Creat Ratio 19 N (test code = BUN/Creat Ratio) Glucose Level (test 95 mg/dL 70-115 code = Glucose Level) Calcium Level (test 9.9 mg/dL 8.3-10.5 code = Calcium Level) Alk Phos (test code 92 U/L 40-129 = Alk Phos) Bilirubin Total 0.4 mg/dL 0.1-0.9 (test code = Bilirubin Total) Albumin Level (test 3.9 g/dL 3.5-5.2 code = Albumin Level) Protein Total (test 7.0 g/dL 6.4-8.3 code = Protein Total) ALT (test code = 20 U/L 1-41 ALT) AST (test code = 25 U/L 1-40 AST) Globulin (test code 3.1 g/dL 2.9-3.1 = Globulin) A/G Ratio (test code 1.3 ratio N = A/G Ratio) eGFR AA (test code = >60 N eGFR (e stimated eGFR AA) mL/min/1.73 m2 Glomerular Filtration Rate ) is an estimated va lue, calculated from the patient's serum creatinine usin g the MDRD equation. It is NOT the patient 's actual GFR. The eGFR provides a more clinically usef ul measure of kidn ey disease than se rum creatinine alone.This calculation milton es sex and race in to account, if the information is provided. If th e race is not provided, and t he patient is -Dianna n, multiply by 1.2 12. If sex is not provided, and t he patient is fema le, multiply by 0.7 42. Results for pat ients <18 years of ag e have not been validated by th e MDRD study and should be interpreted wit h caution. eGFR R esult Interpretation: eGFR > or = 60 is in the Normal RangeeGF R < 60 may mean kid arnoldo diseaseeGFR < 1 5 may mean kidney failure Rang es recommended by the National Kidney Foundation, http://nkdep.ni h.gov Comprehensive Metabolic [id number] 07:28:21 Test Item Value Reference Range Interpretation Comments Sodium Level (test 142.0 mmol/L 135.0-145.0 code = Sodium Level) Potassium Level 4.4 mmol/L 3.5-5.1 (test code = Potassium Level) Chloride Level (test 103 mmol/L 98-105 code = Chloride Level) CO2 (test code = 28 mmol/L 22-29 CO2) Anion Gap (test code 11 mmol/L 7-16 = Anion Gap) BUN (test code = 11.40 mg/dL 6.00-20.00 BUN) Creatinine Level 0.60 mg/dL 0.70-1.20 L (test code = Creatinine Level) BUN/Creat Ratio 19 N (test code = BUN/Creat Ratio) Glucose Level (test 95 mg/dL 70-115 code = Glucose Level) Calcium Level (test 9.9 mg/dL 8.3-10.5 code = Calcium Level) Alk Phos (test code 92 U/L 40-129 = Alk Phos) Bilirubin Total 0.4 mg/dL 0.1-0.9 (test code = Bilirubin Total) Albumin Level (test 3.9 g/dL 3.5-5.2 code = Albumin Level) Protein Total (test 7.0 g/dL 6.4-8.3 code = Protein Total) ALT (test code = 20 U/L 1-41 ALT) AST (test code = 25 U/L 1-40 AST) Globulin (test code 3.1 g/dL 2.9-3.1 = Globulin) A/G Ratio (test code 1.3 ratio N = A/G Ratio) eGFR AA (test code = >60 N eGFR (e stimated eGFR AA) mL/min/1.73 m2 Glomerular Filtration Rate ) is an estimated va lue, calculated from the patient's serum creatinine usin g the MDRD equation. It is NOT the patient 's actual GFR. The eGFR provides a more clinically usef ul measure of kidn ey disease than se rum creatinine alone.This calculation milton es sex and race in to account, if the information is provided. If th e race is not provided, and t he patient is -Dianna n, multiply by 1.2 12. If sex is not provided, and t he patient is fema le, multiply by 0.7 42. Results for pat ients <18 years of ag e have not been validated by th e MDRD study and should be interpreted wit h caution. eGFR R esult Interpretation: eGFR > or = 60 is in the Normal RangeeGF R < 60 may mean kid arnoldo diseaseeGFR < 1 5 may mean kidney failure Rang es recommended by the National Kidney Foundation, http://nkdep.ni h.gov eGFR Non-AA (test >60.00 N eGFR (kenney mated code = eGFR Non-AA) mL/min/1.73 m2 Glomer ular Filtration Rate ) is an estimated va lue, calculated from the patient's serum creatinine usin g the MDRD equation. It is NOT the patient 's actual GFR. The eGFR provides a more clinically usef ul measure of kidn ey disease than se rum creatinine alone.This calculation milton es sex and race in to account, if the information is provided. If th e race is not provided, and t he patient is -Dianna n, multiply by 1.2 12. If sex is not provided, and t he patient is fema le, multiply by 0.7 42. Results for pat ients <18 years of ag e have not been validated by th e MDRD study and should be interpreted wit h caution. eGFR R esult Interpretation: eGFR > or = 60 is in the Normal RangeeGF R < 60 may mean kid arnoldo diseaseeGFR < 1 5 may mean kidney failure Rang es recommended by the National Kidney Foundation, http://nkdep.ni h.gov POC [id number] 05:54:50 Test Item Value Reference Range Interpretation Comments Glucose POC (test 94 mg/dL 70-115 If you con senior designer your code = Glucose POC) patient critically ill, the Marcelino-Accu Check Infrom II meter should not be used for Glucose determination. Draw a venous Glucose and send to the main Lab for analysis. POC [id number] 19:51:21 Test Item Value Reference Range Interpretation Comments Glucose POC (test 166 mg/dL 70-115 H Notify RN or MDIf you code = Glucose POC) consider your patient critically ill, the Marcelino-Accu Chec k Infrom II meter should not be used for Glucos e determination. Draw a venous Glucose and send to the main Lab for analysis. POC [id number] 17:12:51 Test Item Value Reference Range Interpretation Comments Glucose POC (test 99 mg/dL 70-115 If you con senior designer your code = Glucose POC) patient critically ill, the Marcelino-Accu Check Infrom II meter should not be used for Glucose determination. Draw a venous Glucose and send to the main Lab for analysis. POC [id number] 06:35:15 Test Item Value Reference Range Interpretation Comments Glucose POC (test 83 mg/dL 70-115 If you con senior designer your code = Glucose POC) patient critically ill, the Marcelino-Accu Check Infrom II meter should not be used for Glucose determination. Draw a venous Glucose and send to the main Lab for analysis. POC [id number] 19:31:15 Test Item Value Reference Range Interpretation Comments Glucose POC (test 167 mg/dL 70-115 H Notify RN or MDIf you code = Glucose POC) consider your patient critically ill, the Marcelino-Accu Chec k Infrom II meter should not be used for Glucos e determination. Draw a venous Glucose and send to the main Lab for analysis. POC [id number] 18:16:13 Test Item Value Reference Range Interpretation Comments Glucose POC (test 157 mg/dL 70-115 H Notify RN or MDIf you code = Glucose POC) consider your patient critically ill, the Marcelino-Accu Chec k Infrom II meter should not be used for Glucos e determination. Draw a venous Glucose and send to the main Lab for analysis. POC [id number] 06:10:22 Test Item Value Reference Range Interpretation Comments Glucose POC (test 88 mg/dL 70-115 If you con senior designer your code = Glucose POC) patient critically ill, the Marcelino-Accu Check Infrom II meter should not be used for Glucose determination. Draw a venous Glucose and send to the main Lab for analysis. POC [id number] 19:02:50 Test Item Value Reference Range Interpretation Comments Glucose POC (test 124 mg/dL 70-115 H If you con senior designer your code = Glucose POC) patient critically ill, the Marcelino-Accu Check Infrom II meter should not be used for Glucose determination. Draw a venous Glucose and send to the main Lab for analysis. POC [id number] 15:02:23 Test Item Value Reference Range Interpretation Comments Glucose POC (test 124 mg/dL 70-115 H If you con senior designer your code = Glucose POC) patient critically ill, the Marcelino-Accu Check Infrom II meter should not be used for Glucose determination. Draw a venous Glucose and send to the main Lab for analysis. POC [id number] 10:48:16 Test Item Value Reference Range Interpretation Comments Glucose POC (test 110 mg/dL 70-115 Notify RN or MDIf you code = Glucose POC) consider your patient critically ill, the Marcelino-Accu Chec k Infrom II meter should not be used for Glucos e determination. Draw a venous Glucose and send to the main Lab for analysis. POC [id number] 05:50:44 Test Item Value Reference Range Interpretation Comments Glucose POC (test 92 mg/dL 70-115 If you con senior designer your code = Glucose POC) patient critically ill, the Marcelino-Accu Check Infrom II meter should not be used for Glucose determination. Draw a venous Glucose and send to the main Lab for analysis. POC [id number] 19:25:14 Test Item Value Reference Range Interpretation Comments Glucose POC (test 125 mg/dL 70-115 H Notify RN or MDIf you code = Glucose POC) consider your patient critically ill, the [employer]-Accu Chec k Infrom II meter should not be used for Glucos e determination. Draw a venous Glucose and send to the main Lab for analysis. POC [id number] 17:25:19 Test Item Value Reference Range Interpretation Comments Glucose POC (test 103 mg/dL 70-115 Notify RN or MDIf you code = Glucose POC) consider your patient critically ill, the [employer]-Accu Chec k Infrom II meter should not be used for Glucos e determination. Draw a venous Glucose and send to the main Lab for analysis. POC [id number] 12:14:50 Test Item Value Reference Range Interpretation Comments Glucose POC (test 103 mg/dL 70-115 If you con senior designer your code = Glucose POC) patient critically ill, the [employer]ino-Accu Check Infrom II meter should not be used for Glucose determination. Draw a venous Glucose and send to the main Lab for analysis. POC [id number] 06:21:22 Test Item Value Reference Range Interpretation Comments Glucose POC (test 93 mg/dL 70-115 If you con senior designer your code = Glucose POC) patient critically ill, the [employer]ino-Accu Check Infrom II meter should not be used for Glucose determination. Draw a venous Glucose and send to the main Lab for analysis. POC [id number] 19:36:16 Test Item Value Reference Range Interpretation Comments Glucose POC (test 113 mg/dL 70-115 If you con senior designer your code = Glucose POC) patient critically ill, the [employer]-Accu Check Infrom II meter should not be used for Glucose determination. Draw a venous Glucose and send to the main Lab for analysis. POC [id number] 14:53:15 Test Item Value Reference Range Interpretation Comments Glucose POC (test 136 mg/dL 70-115 H Notify RN or MDIf you code = Glucose POC) consider your patient critically ill, the [employer]-Accu Chec k Infrom II meter should not be used for Glucos e determination. Draw a venous Glucose and send to the main Lab for analysis. POC [id number] 11:03:52 Test Item Value Reference Range Interpretation Comments Glucose POC (test 110 mg/dL 70-115 Notify RN or MDIf you code = Glucose POC) consider your patient critically ill, the [employer]-Accu Chec k Infrom II meter should not be used for Glucos e determination. Draw a venous Glucose and send to the main Lab for analysis. POC [id number] 06:11:41 Test Item Value Reference Range Interpretation Comments Glucose POC (test 92 mg/dL 70-115 If you con senior designer your code = Glucose POC) patient critically ill, the [employer]-Accu Check Infrom II meter should not be used for Glucose determination. Draw a venous Glucose and send to the main Lab for analysis. POC [id number] 19:07:17 Test Item Value Reference Range Interpretation Comments Glucose POC (test 128 mg/dL 70-115 H If you con senior designer your code = Glucose POC) patient critically ill, the [employer]-Accu Check Infrom II meter should not be used for Glucose determination. Draw a venous Glucose and send to the main Lab for analysis. POC [id number] 15:37:40 Test Item Value Reference Range Interpretation Comments Glucose POC (test 109 mg/dL 70-115 If you con senior designer your code = Glucose POC) patient critically ill, the [employer]-Accu Check Infrom II meter should not be used for Glucose determination. Draw a venous Glucose and send to the main Lab for analysis. POC [id number] 10:42:43 Test Item Value Reference Range Interpretation Comments Glucose POC (test 132 mg/dL 70-115 H If you con senior designer your code = Glucose POC) patient critically ill, the [employer]-Accu Check Infrom II meter should not be used for Glucose determination. Draw a venous Glucose and send to the main Lab for analysis. POC [id number] 06:09:11 Test Item Value Reference Range Interpretation Comments Glucose POC (test 97 mg/dL 70-115 If you con senior designer your code = Glucose POC) patient critically ill, the [employer]-Accu Check Infrom II meter should not be used for Glucose determination. Draw a venous Glucose and send to the main Lab for analysis. POC [id number] 19:44:43 Test Item Value Reference Range Interpretation Comments Glucose POC (test 110 mg/dL 70-115 If you con senior designer your code = Glucose POC) patient critically ill, the [employer]-Accu Check Infrom II meter should not be used for Glucose determination. Draw a venous Glucose and send to the main Lab for analysis. POC [id number] 16:50:44 Test Item Value Reference Range Interpretation Comments Glucose POC (test 101 mg/dL 70-115 If you con senior designer your code = Glucose POC) patient critically ill, the Marcel[employer]-Accu Check Infrom II meter should not be used for Glucose determination. Draw a venous Glucose and send to the main Lab for analysis. POC [id number] 11:02:46 Test Item Value Reference Range Interpretation Comments Glucose POC (test 113 mg/dL 70-115 Notify RN or MDIf you code = Glucose POC) consider your patient critically ill, the [employer]-Accu Chec k Infrom II meter should not be used for Glucos e determination. Draw a venous Glucose and send to the main Lab for analysis. POC [id number] 06:36:10 Test Item Value Reference Range Interpretation Comments Glucose POC (test 100 mg/dL 70-115 If you con senior designer your code = Glucose POC) patient critically ill, the Marcel[employer]-Accu Check Infrom II meter should not be used for Glucose determination. Draw a venous Glucose and send to the main Lab for analysis. POC [id number] 19:50:11 Test Item Value Reference Range Interpretation Comments Glucose POC (test 114 mg/dL 70-115 Notify RN or MDIf you code = Glucose POC) consider your patient critically ill, the [employer]-Accu Chec k Infrom II meter should not be used for Glucos e determination. Draw a venous Glucose and send to the main Lab for analysis. POC [id number] 14:58:14 Test Item Value Reference Range Interpretation Comments Glucose POC (test 127 mg/dL 70-115 H Notify RN or MDIf you code = Glucose POC) consider your patient critically ill, the [employer]-Accu Chec k Infrom II meter should not be used for Glucos e determination. Draw a venous Glucose and send to the main Lab for analysis. POC [id number] 10:55:10 Test Item Value Reference Range Interpretation Comments Glucose POC (test 115 mg/dL 70-115 Notify RN or MDIf you code = Glucose POC) consider your patient critically ill, the Marcel[employer]-Accu Chec k Infrom II meter should not be used for Glucos e determination. Draw a venous Glucose and send to the main Lab for analysis. Vitamin B12 [id number] 07:24:52 Test Item Value Reference Range Interpretation Comments B12 Level (test code = B12 Level) 494 pg/mL 211-946 POC [id number] 06:24:38 Test Item Value Reference Range Interpretation Comments Glucose POC (test 93 mg/dL 70-115 If you con senior designer your code = Glucose POC) patient critically ill, the Marcelino-Accu Check Infrom II meter should not be used for Glucose determination. Draw a venous Glucose and send to the main Lab for analysis. POC [id number] 20:21:08 Test Item Value Reference Range Interpretation Comments Glucose POC (test 144 mg/dL 70-115 H If you con senior designer your code = Glucose POC) patient critically ill, the Marcelino-Accu Check Infrom II meter should not be used for Glucose determination. Draw a venous Glucose and send to the main Lab for analysis. POC [id number] 15:45:14 Test Item Value Reference Range Interpretation Comments Glucose POC (test 160 mg/dL 70-115 H If you con senior designer your code = Glucose POC) patient critically ill, the Marcelino-Accu Check Infrom II meter should not be used for Glucose determination. Draw a venous Glucose and send to the main Lab for analysis. POC [id number] 11:30:10 Test Item Value Reference Range Interpretation Comments Glucose POC (test 144 mg/dL 70-115 H If you con senior designer your code = Glucose POC) patient critically ill, the Marcelino-Accu Check Infrom II meter should not be used for Glucose determination. Draw a venous Glucose and send to the main Lab for analysis. Thyroid Stimulating [id number] 07:58:30 Test Item Value Reference Range Interpretation Comments TSH (test code = TSH) 2.700 mIU/mL 0.270-4.200 Basic Metabolic [id number] 07:44:47 Test Item Value Reference Range Interpretation Comments Sodium Level (test code = Sodium 144.0 mmol/L 135.0-145.0 Level) Potassium Level (test code = 4.5 mmol/L 3.5-5.1 Potassium Level) Chloride Level (test code = 102 mmol/L 98-105 Chloride Level) CO2 (test code = CO2) 29 mmol/L 22-29 Anion Gap (test code = Anion 13 mmol/L 7-16 Gap) BUN (test code = BUN) 18.20 mg/dL 6.00-20.00 Creatinine Level (test code = 0.80 mg/dL 0.70-1.20 Creatinine Level) BUN/Creat Ratio (test code = 23 N BUN/Creat Ratio) Glucose Level (test code = 93 mg/dL 70-115 Glucose Level) Calcium Level (test code = 10.1 mg/dL 8.3-10.5 Calcium Level) Basic Metabolic [id number] 07:44:47 Test Item Value Reference Range Interpretation Comments Sodium Level (test 144.0 mmol/L 135.0-145.0 code = Sodium Level) Potassium Level 4.5 mmol/L 3.5-5.1 (test code = Potassium Level) Chloride Level (test 102 mmol/L 98-105 code = Chloride Level) CO2 (test code = 29 mmol/L 22-29 CO2) Anion Gap (test code 13 mmol/L 7-16 = Anion Gap) BUN (test code = 18.20 mg/dL 6.00-20.00 BUN) Creatinine Level 0.80 mg/dL 0.70-1.20 (test code = Creatinine Level) BUN/Creat Ratio 23 N (test code = BUN/Creat Ratio) Glucose Level (test 93 mg/dL 70-115 code = Glucose Level) Calcium Level (test 10.1 mg/dL 8.3-10.5 code = Calcium Level) eGFR AA (test code = >60 N eGFR (e stimated eGFR AA) mL/min/1.73 m2 Glomerular Filtration Rate ) is an estimated va lue, calculated from the patient's serum creatinine usin g the MDRD equation. It is NOT the patient 's actual GFR. The eGFR provides a more clinically usef ul measure of kidn ey disease than se rum creatinine alone.This calculation milton es sex and race in to account, if the information is provided. If th e race is not provided, and t he patient is -Dianna n, multiply by 1.2 12. If sex is not provided, and t he patient is fema le, multiply by 0.7 42. Results for pat ients <18 years of ag e have not been validated by e MDRD study and should be interpreted wit h caution. eGFR R esult Interpretation: eGFR > or = 60 is in the Normal RangeeGF R < 60 may mean kid arnoldo diseaseeGFR < 1 5 may mean kidney failure Rang es recommended by the National Kidney Foundation, http://nkdep.ni h.gov Basic Metabolic [id number] 07:44:47 Test Item Value Reference Range Interpretation Comments Sodium Level (test 144.0 mmol/L 135.0-145.0 code = Sodium Level) Potassium Level 4.5 mmol/L 3.5-5.1 (test code = Potassium Level) Chloride Level (test 102 mmol/L 98-105 code = Chloride Level) CO2 (test code = 29 mmol/L 22-29 CO2) Anion Gap (test code 13 mmol/L 7-16 = Anion Gap) BUN (test code = 18.20 mg/dL 6.00-20.00 BUN) Creatinine Level 0.80 mg/dL 0.70-1.20 (test code = Creatinine Level) BUN/Creat Ratio 23 N (test code = BUN/Creat Ratio) Glucose Level (test 93 mg/dL 70-115 code = Glucose Level) Calcium Level (test 10.1 mg/dL 8.3-10.5 code = Calcium Level) eGFR AA (test code = >60 N eGFR (e stimated eGFR AA) mL/min/1.73 m2 Glomerular Filtration Rate ) is an estimated va lue, calculated from the patient's serum creatinine usin g the MDRD equation. It is NOT the patient 's actual GFR. The eGFR provides a more clinically usef ul measure of kidn ey disease than se rum creatinine alone.This calculation milton es sex and race in to account, if the information is provided. If th e race is not provided, and t he patient is -Dianna n, multiply by 1.2 12. If sex is not provided, and t he patient is fema le, multiply by 0.7 42. Results for pat ients <18 years of ag e have not been validated by [facility] MDRD study and should be interpreted wit h caution. eGFR R esult Interpretation: eGFR > or = 60 is in the Normal RangeeGF R < 60 may mean kid arnoldo diseaseeGFR < 1 5 may mean kidney failure Rang es recommended by the National Kidney Foundation, http://nkdep.ni h.gov eGFR Non-AA (test >60.00 N eGFR (kenney mated code = eGFR Non-AA) mL/min/1.73 m2 Glomer ular Filtration Rate ) is an estimated va lue, calculated from the patient's serum creatinine usin g the MDRD equation. It is NOT the patient 's actual GFR. The eGFR provides a more clinically usef ul measure of kidn ey disease than se rum creatinine alone.This calculation milton es sex and race in to account, if the information is provided. If th e race is not provided, and t he patient is -Dianna n, multiply by 1.2 12. If sex is not provided, and t he patient is fema le, multiply by 0.7 42. Results for pat ients <18 years of ag e have not been validated by [facility] MDRD study and should be interpreted wit h caution. eGFR R esult Interpretation: eGFR > or = 60 is in the Normal RangeeGF R < 60 may mean kid arnoldo diseaseeGFR < 1 5 may mean kidney failure Rang es recommended by the National Kidney Foundation, http://nkdep.ni h.gov Hemoglobin [id number] 07:34:54 Test Item Value Reference Range Interpretation Comments Hemoglobin A1c (test code 5.5 % 4.8-5.9 No n Diabetic = Hemoglobin A1c) 4.8-5.9%Di abetic <7.0% POC [id number] 06:03:40 Test Item Value Reference Range Interpretation Comments Glucose POC (test 96 mg/dL 70-115 Notify RN or MDIf you code = Glucose POC) consider your patient critically ill, the Marcelino-Accu Chec k Infrom II meter should not be used for Glucos e determination. Draw a venous Glucose and send to the main Lab for analysis. POC [id number] 19:28:40 Test Item Value Reference Range Interpretation Comments Glucose POC (test 131 mg/dL 70-115 H Notify RN or MDIf you code = Glucose POC) consider your patient critically ill, the Marcelino-Accu Chec k Infrom II meter should not be used for Glucos e determination. Draw a venous Glucose and send to the main Lab for analysis. POC [id number] 15:53:36 Test Item Value Reference Range Interpretation Comments Glucose POC (test 128 mg/dL 70-115 H Notify RN or MDIf you code = Glucose POC) consider your patient critically ill, the Marcelino-Accu Chec k Infrom II meter should not be used for Glucos e determination. Draw a venous Glucose and send to the main Lab for analysis. POC [id number] 10:38:42 Test Item Value Reference Range Interpretation Comments Glucose POC (test 129 mg/dL 70-115 H If you con senior designer your code = Glucose POC) patient critically ill, the Marcelino-Accu Check Infrom II meter should not be used for Glucose determination. Draw a venous Glucose and send to the main Lab for analysis. POC [id number] 05:55:07 Test Item Value Reference Range Interpretation Comments Glucose POC (test 93 mg/dL 70-115 Notify RN or MDIf you code = Glucose POC) consider your patient critically ill, the Marcelino-Accu Chec k Infrom II meter should not be used for Glucos e determination. Draw a venous Glucose and send to the main Lab for analysis. POC [id number] 19:25:37 Test Item Value Reference Range Interpretation Comments Glucose POC (test 211 mg/dL 70-115 H Notify RN or MDIf you code = Glucose POC) consider your patient critically ill, the Marcelino-Accu Chec k Infrom II meter should not be used for Glucos e determination. Draw a venous Glucose and send to the main Lab for analysis. POC [id number] 11:05:38 Test Item Value Reference Range Interpretation Comments Glucose POC (test 179 mg/dL 70-115 H Notify RN or MDIf you code = Glucose POC) consider your patient critically ill, the Marcelino-Accu Chec k Infrom II meter should not be used for Glucos e determination. Draw a venous Glucose and send to the main Lab for analysis. POC [id number] 06:20:09 Test Item Value Reference Range Interpretation Comments Glucose POC (test 111 mg/dL 70-115 If you con senior designer your code = Glucose POC) patient critically ill, the Marcelino-Accu Check Infrom II meter should not be used for Glucose determination. Draw a venous Glucose and send to the main Lab for analysis. POC [id number] 19:33:01 Test Item Value Reference Range Interpretation Comments Glucose POC (test 172 mg/dL 70-115 H Notify RN or MDIf you code = Glucose POC) consider your patient critically ill, the Marcelino-Accu Chec k Infrom II meter should not be used for Glucos e determination. Draw a venous Glucose and send to the main Lab for analysis. POC [id number] 15:25:39 Test Item Value Reference Range Interpretation Comments Glucose POC (test 132 mg/dL 70-115 H If you con senior designer your code = Glucose POC) patient critically ill, the Marcelino-Accu Check Infrom II meter should not be used for Glucose determination. Draw a venous Glucose and send to the main Lab for analysis. POC [id number] 12:17:06 Test Item Value Reference Range Interpretation Comments Glucose POC (test 120 mg/dL 70-115 H If you con senior designer your code = Glucose POC) patient critically ill, the Marcelino-Accu Check Infrom II meter should not be used for Glucose determination. Draw a venous Glucose and send to the main Lab for analysis. POC [id number] 06:20:04 Test Item Value Reference Range Interpretation Comments Glucose POC (test 92 mg/dL 70-115 Notify RN or MDIf you code = Glucose POC) consider your patient critically ill, the Marcelino-Accu Chec k Infrom II meter should not be used for Glucos e determination. Draw a venous Glucose and send to the main Lab for analysis. POC [id number] 20:13:31 Test Item Value Reference Range Interpretation Comments Glucose POC (test 167 mg/dL 70-115 H If you con senior designer your code = Glucose POC) patient critically ill, the Marcelino-Accu Check Infrom II meter should not be used for Glucose determination. Draw a venous Glucose and send to the main Lab for analysis. POC [id number] 15:43:33 Test Item Value Reference Range Interpretation Comments Glucose POC (test 121 mg/dL 70-115 H Notify RN or MDIf you code = Glucose POC) consider your patient critically ill, the Marcelino-Accu Chec k Infrom II meter should not be used for Glucos e determination. Draw a venous Glucose and send to the main Lab for analysis. POC [id number] 12:09:32 Test Item Value Reference Range Interpretation Comments Glucose POC (test 114 mg/dL 70-115 Notify RN or MDIf you code = Glucose POC) consider your patient critically ill, the Marcelino-Accu Chec k Infrom II meter should not be used for Glucos e determination. Draw a venous Glucose and send to the main Lab for analysis. POC [id number] 06:27:06 Test Item Value Reference Range Interpretation Comments Glucose POC (test 105 mg/dL 70-115 Notify RN or MDIf you code = Glucose POC) consider your patient critically ill, the Marcelino-Accu Chec k Infrom II meter should not be used for Glucos e determination. Draw a venous Glucose and send to the main Lab for analysis. POC [id number] 20:29:04 Test Item Value Reference Range Interpretation Comments Glucose POC (test 165 mg/dL 70-115 H Notify RN or MDIf you code = Glucose POC) consider your patient critically ill, the Marcelino-Accu Chec k Infrom II meter should not be used for Glucos e determination. Draw a venous Glucose and send to the main Lab for analysis. POC [id number] 16:37:00 Test Item Value Reference Range Interpretation Comments Glucose POC (test 111 mg/dL 70-115 Notify RN or MDIf you code = Glucose POC) consider your patient critically ill, the Marcelino-Accu Chec k Infrom II meter should not be used for Glucos e determination. Draw a venous Glucose and send to the main Lab for analysis. POC [id number] 12:27:35 Test Item Value Reference Range Interpretation Comments Glucose POC (test 104 mg/dL 70-115 If you con senior designer your code = Glucose POC) patient critically ill, the Marcelino-Accu Check Infrom II meter should not be used for Glucose determination. Draw a venous Glucose and send to the main Lab for analysis. POC [id number] 06:12:34 Test Item Value Reference Range Interpretation Comments Glucose POC (test 99 mg/dL 70-115 If you con senior designer your code = Glucose POC) patient critically ill, the Marcelino-Accu Check Infrom II meter should not be used for Glucose determination. Draw a venous Glucose and send to the main Lab for analysis. POC [id number] 19:31:34 Test Item Value Reference Range Interpretation Comments Glucose POC (test 144 mg/dL 70-115 H Notify RN or MDIf you code = Glucose POC) consider your patient critically ill, the Marcelino-Accu Chec k Infrom II meter should not be used for Glucos e determination. Draw a venous Glucose and send to the main Lab for analysis. POC [id number] 16:14:34 Test Item Value Reference Range Interpretation Comments Glucose POC (test 126 mg/dL 70-115 H If you con senior designer your code = Glucose POC) patient critically ill, the Marcelino-Accu Check Infrom II meter should not be used for Glucose determination. Draw a venous Glucose and send to the main Lab for analysis. POC [id number] 12:28:28 Test Item Value Reference Range Interpretation Comments Glucose POC (test 110 mg/dL 70-115 Notify RN or MDIf you code = Glucose POC) consider your patient critically ill, the Marcelino-Accu Chec k Infrom II meter should not be used for Glucos e determination. Draw a venous Glucose and send to the main Lab for analysis. POC [id number] 07:23:42 Test Item Value Reference Range Interpretation Comments Glucose POC (test 114 mg/dL 70-115 If you con senior designer your code = Glucose POC) patient critically ill, the Marcelino-Accu Check Infrom II meter should not be used for Glucose determination. Draw a venous Glucose and send to the main Lab for analysis. POC [id number] 20:39:07 Test Item Value Reference Range Interpretation Comments Glucose POC (test 115 mg/dL 70-115 If you con senior designer your code = Glucose POC) patient critically ill, the Marcelino-Accu Check Infrom II meter should not be used for Glucose determination. Draw a venous Glucose and send to the main Lab for analysis. POC [id number] 11:16:07 Test Item Value Reference Range Interpretation Comments Glucose POC (test 136 mg/dL 70-115 H If you con senior designer your code = Glucose POC) patient critically ill, the Marcelino-Accu Check Infrom II meter should not be used for Glucose determination. Draw a venous Glucose and send to the main Lab for analysis. Urine [id number] 09:08:32 C Urine Added by GL_SJM_UA_CUL_INDNo growth at 24 hours. No growth at 48 hours.RPR [id number] 02:34:49 Test Item Value Reference Range Interpretation Comments RPR Qual (test code = RPR Qual) Non-Reactive Non-Reactive Reactive Control (test code = Reactive Reactive Control) Weak Reactive Control (test Weak Reactive code = Weak Reactive Control) Non-Reactive Control (test code Non-Reactive = Non-Reactive Control) Lot # (test code = Lot #) [id number] Expiration Dt (test code = 01.22.2020 N Expiration Dt) Lipid [id number] 00:50:26 Test Item Value Reference Range Interpretation Comments Cholesterol Total 254 mg/dL 0-200 H RISK OF HE ART (test code = DISEASEPublishe d by Cholesterol Total) [employer] Barbara lyte Optimal Borderl ine Increased RiskC HOL <200 200-239 >2 40TRIG <150 150-199 >2 00HDL Male >60 <40H DL Female >60 <5 0LDL <100 130-159 >1 60LDL Near optimal is 100-129 Triglycerides (test 151 mg/dL 9-200 code = Triglycerides) HDL (test code = HDL) 63 mg/dL 40-60 H LDL (test code = LDL) 161 mg/dL 0-130 H The eq uation being used in this calcula tion is LDL = (Chol - H DL) - (Trig / 5) VLDL (test code = 30 mg/dL 5-40 The equati on being used VLDL) in this calcula tion is VLDL = Trig / 5 Chol/HDL (test code = 4.0 ratio 0.0-5.0 Chol/HDL) LDL/HDL Ratio (test 3 N The equa tion being used code = LDL/HDL Ratio) in thi s calculation is LDL/HDL Ratio=L DL Calc/HDL Chol Thyroid Stimulating [id number] 00:50:26 Test Item Value Reference Range Interpretation Comments TSH (test code = TSH) 1.010 mIU/mL 0.270-4.200 Comprehensive Metabolic [id number] 16:55:05 Test Item Value Reference Range Interpretation Comments Sodium Level (test code = Sodium 141.0 mmol/L 135.0-145.0 Level) Potassium Level (test code = 3.8 mmol/L 3.5-5.1 Potassium Level) Chloride Level (test code = 98 mmol/L 98-105 Chloride Level) CO2 (test code = CO2) 24 mmol/L 22-29 Anion Gap (test code = Anion 19 mmol/L 7-16 H Gap) BUN (test code = BUN) 22.10 mg/dL 6.00-20.00 H Creatinine Level (test code = 1.10 mg/dL 0.70-1.20 Creatinine Level) BUN/Creat Ratio (test code = 20 N BUN/Creat Ratio) Glucose Level (test code = 142 mg/dL 70-115 H Glucose Level) Calcium Level (test code = 10.6 mg/dL 8.3-10.5 H Calcium Level) Alk Phos (test code = Alk Phos) 125 U/L 40-129 Bilirubin Total (test code = 2.7 mg/dL 0.1-0.9 H Bilirubin Total) Albumin Level (test code = 4.9 g/dL 3.5-5.2 Albumin Level) Protein Total (test code = 8.7 g/dL 6.4-8.3 H Protein Total) ALT (test code = ALT) 17 U/L 1-41 AST (test code = AST) 23 U/L 1-40 Globulin (test code = Globulin) 3.8 g/dL 2.9-3.1 H A/G Ratio (test code = A/G 1.3 ratio N Ratio) Comprehensive Metabolic [id number] 16:55:05 Test Item Value Reference Range Interpretation Comments Sodium Level (test 141.0 mmol/L 135.0-145.0 code = Sodium Level) Potassium Level 3.8 mmol/L 3.5-5.1 (test code = Potassium Level) Chloride Level (test 98 mmol/L 98-105 code = Chloride Level) CO2 (test code = 24 mmol/L 22-29 CO2) Anion Gap (test code 19 mmol/L 7-16 H = Anion Gap) BUN (test code = 22.10 mg/dL 6.00-20.00 H BUN) Creatinine Level 1.10 mg/dL 0.70-1.20 (test code = Creatinine Level) BUN/Creat Ratio 20 N (test code = BUN/Creat Ratio) Glucose Level (test 142 mg/dL 70-115 H code = Glucose Level) Calcium Level (test 10.6 mg/dL 8.3-10.5 H code = Calcium Level) Alk Phos (test code 125 U/L 40-129 = Alk Phos) Bilirubin Total 2.7 mg/dL 0.1-0.9 H (test code = Bilirubin Total) Albumin Level (test 4.9 g/dL 3.5-5.2 code = Albumin Level) Protein Total (test 8.7 g/dL 6.4-8.3 H code = Protein Total) ALT (test code = 17 U/L 1-41 ALT) AST (test code = 23 U/L 1-40 AST) Globulin (test code 3.8 g/dL 2.9-3.1 H = Globulin) A/G Ratio (test code 1.3 ratio N = A/G Ratio) eGFR AA (test code = >60 N eGFR (e stimated eGFR AA) mL/min/1.73 m2 Glomerular Filtration Rate ) is an estimated va lue, calculated from the patient's serum creatinine usin g the MDRD equation. It is NOT the patient 's actual GFR. The eGFR provides a more clinically usef ul measure of kidn ey disease than se rum creatinine alone.This calculation milton es sex and race in to account, if the information is provided. If th e race is not provided, and t he patient is -Dianna n, multiply by 1.2 12. If sex is not provided, and t he patient is fema le, multiply by 0.7 42. Results for pat ients <18 years of ag e have not been validated by th e MDRD study and should be interpreted wit h caution. eGFR R esult Interpretation: eGFR > or = 60 is in the Normal RangeeGF R < 60 may mean kid arnoldo diseaseeGFR < 1 5 may mean kidney failure Rang es recommended by the National Kidney Foundation, http://nkdep.ni h.gov Alcohol [id number] 16:55:05 Test Item Value Reference Range Interpretation Comments Ethanol Level (test <0.00 g/dL 0.00-0.01 Intoxica fabricio 0.080 g/dL code = Ethanol or more Level) Ethanol Inst (test <0 N code = Ethanol Inst) Comprehensive Metabolic [id number] 16:55:05 Test Item Value Reference Range Interpretation Comments Sodium Level (test 141.0 mmol/L 135.0-145.0 code = Sodium Level) Potassium Level 3.8 mmol/L 3.5-5.1 (test code = Potassium Level) Chloride Level (test 98 mmol/L 98-105 code = Chloride Level) CO2 (test code = 24 mmol/L 22-29 CO2) Anion Gap (test code 19 mmol/L 7-16 H = Anion Gap) BUN (test code = 22.10 mg/dL 6.00-20.00 H BUN) Creatinine Level 1.10 mg/dL 0.70-1.20 (test code = Creatinine Level) BUN/Creat Ratio 20 N (test code = BUN/Creat Ratio) Glucose Level (test 142 mg/dL 70-115 H code = Glucose Level) Calcium Level (test 10.6 mg/dL 8.3-10.5 H code = Calcium Level) Alk Phos (test code 125 U/L 40-129 = Alk Phos) Bilirubin Total 2.7 mg/dL 0.1-0.9 H (test code = Bilirubin Total) Albumin Level (test 4.9 g/dL 3.5-5.2 code = Albumin Level) Protein Total (test 8.7 g/dL 6.4-8.3 H code = Protein Total) ALT (test code = 17 U/L 1-41 ALT) AST (test code = 23 U/L 1-40 AST) Globulin (test code 3.8 g/dL 2.9-3.1 H = Globulin) A/G Ratio (test code 1.3 ratio N = A/G Ratio) eGFR AA (test code = >60 N eGFR (e stimated eGFR AA) mL/min/1.73 m2 Glomerular Filtration Rate ) is an estimated va lue, calculated from the patient's serum creatinine usin g the MDRD equation. It is NOT the patient 's actual GFR. The eGFR provides a more clinically usef ul measure of kidn ey disease than se rum creatinine alone.This calculation milton es sex and race in to account, if the information is provided. If th e race is not provided, and t he patient is -Dianna n, multiply by 1.2 12. If sex is not provided, and t he patient is fema le, multiply by 0.7 42. Results for pat ients <18 years of ag e have not been validated by [facility] MDRD study and should be interpreted wit h caution. eGFR R esult Interpretation: eGFR > or = 60 is in the Normal RangeeGF R < 60 may mean kid arnoldo diseaseeGFR < 1 5 may mean kidney failure Rang es recommended by the National Kidney Foundation, http://nkdep.ni h.gov eGFR Non-AA (test >60.00 N eGFR (kenney mated code = eGFR Non-AA) mL/min/1.73 m2 Glomer ular Filtration Rate ) is an estimated va lue, calculated from the patient's serum creatinine usin g the MDRD equation. It is NOT the patient 's actual GFR. The eGFR provides a more clinically usef ul measure of kidn ey disease than se rum creatinine alone.This calculation milton es sex and race in to account, if the information is provided. If e race is not provided, and t he patient is -Dianna n, multiply by 1.2 12. If sex is not provided, and t he patient is fema le, multiply by 0.7 42. Results for pat ients <18 years of ag e have not been validated by [facility] MDRD study and should be interpreted wit h caution. eGFR R esult Interpretation: eGFR > or = 60 is in the Normal RangeeGF R < 60 may mean kid arnoldo diseaseeGFR < 1 5 may mean kidney failure Rang es recommended by the National Kidney Foundation, http://nkdep.ni h.gov Urine Drug [id number] 16:41:25 Test Item Value Reference Range Interpretation Comments Amphetamine Screen Ur Negative Negative (test code = Amphetamine Screen Ur) Barbiturate Screen Ur Negative Negative (test code = Barbiturate Screen Ur) Benzodiazepines Ur (test Negative Negative code = Benzodiazepines Ur) Cocaine Screen Ur (test Negative Negative code = Cocaine Screen Ur) U Methadone Scr (test Negative Negative code = U Methadone Scr) Opiate Screen Ur (test Negative Negative code = Opiate Screen Ur) U PCP Scrn (test code = Negative Negative U PCP Scrn) Cannabinoid Screen Ur Negative Negative (test code = Cannabinoid Screen Ur) U TCA (test code = U Negative Negative The res ults of all TCA) drug screen evelio ts are only preliminar y. Clinical consideration a nd professional ju dgment should be appli ed to any drug of abu se test result, particularly wh en preliminary pos itive results are obt ained. Please order a separate confir matory test if desired . Urinalysis [id number] 16:37:04 Test Item Value Reference Range Interpretation Comments UA WBC (test code = UA WBC) 6-10 0-5 A UA RBC (test code = UA RBC) 0-5 0-5 UA Bacteria (test code = UA Bacteria) Few A UA Squam Epithelial (test code = UA 0-5 Squam Epithelial) UA Mucous (test code = UA Mucous) Many A UA Hyal Cast (test code = UA Hyal Cast) 6-10 A UA Gran Cast (test code = UA Gran Cast) 6-10 A UA Waxy Cast (test code = UA Waxy Cast) 1-5 A Complete Blood Count with [id number] 16:17:16 Test Item Value Reference Range Interpretation Comments WBC (test code = WBC) 8.6 x10 4.4-10.5 RBC (test code = RBC) 4.97 x10 4.10-5.70 Hgb (test code = Hgb) 15.4 g/dL 13.4-17.4 Hct (test code = Hct) 44.5 % 38.7-52.0 MCV (test code = MCV) 89.50 fL 80.00-100.00 MCHC (test code = 34.60 g/dL 32.00-37.50 MCHC) RDW CV (test code = 13.0 % 11.5-14.5 RDW CV) MCH (test code = MCH) 31.0 pg 27.0-32.5 Platelets (test code = 244.0 x10 140.0-440.0 Platelets) MPV (test code = MPV) 11.0 fL N Slide Review (test Auto Auto Result cr eated by code = Slide Review) GL_SJM_ SLIDE_REV_AUTO nRBC (test code = 0 N nRBC) NRBC Abs (test code = 0.00 x10 N NRBC Abs) IPF (test code = IPF) 0 % N Automated [id number] 16:17:16 Test Item Value Reference Range Interpretation Comments Neutro Auto (test code = Neutro 61.8 % 36.0-70.0 Auto) Lymph Auto (test code = Lymph Auto) 26.9 % 12.0-44.0 [place] Auto (test code = [place] Auto) 8.6 % 0.0-11.0 Eos, Auto (test code = Eos, Auto) 0.9 % 0.0-7.0 Basophil Auto (test code = Basophil 1.3 % 0.0-2.0 Auto) Neutro Absolute (test code = Neutro 5.3 x10 1.6-7.4 Absolute) Lymph Absolute (test code = Lymph 2.32 x10 .50-4.60 Absolute) [place] Absolute (test code = [place] .74 x10 .00-1.20 Absolute) Eos Absolute (test code = Eos 0.08 x10 0.00-0.74 Absolute) Baso Absolute (test code = Baso 0.11 x10 0.00-0.21 Absolute) IG [id number] 16:17:16 Test Item Value Reference Range Interpretation Comments IG (test code = IG) 0.5 % 0.0-5.0 IG Abs (test code = IG Abs) 0 x10 N Urinalysis with Culture, if [id number] 16:16:51 Test Item Value Reference Range Interpretation Comments UA Color (test code = UA FAINA Yellow A Color) UA Appear (test code = CLEAR Clear UA Appear) UA pH (test code = UA 5 N pH) UA Spec Grav (test code 1.027 1.001-1.035 = UA Spec Grav) UA Glucose (test code = NEG Negative UA Glucose) UA Bili (test code = UA 1 mg/dL Negative A Bili) UA Ketones (test code = 5 mg/dL Negative UA Ketones) UA Blood (test code = UA NEG Negative Blood) UA Protein (test code = 25 mg/dL Negative A UA Protein) UA Urobilinogen (test 4 mg/dL >0.2 A code = UA Urobilinogen) UA Nitrite (test code = NEG Negative UA Nitrite) UA Leuk Est (test code = NEG Negative UA Leuk Est) UA Micro Ind? (test code Indicated Not Indicated A Re sult created by = UA Micro Ind?) rule GL_SJM_UA_MICRO _IND CT Maxillofacial w/o [id number] 10:04:30Patient: DESTINEE HERNANDEZ Date/Time07/19/2018 09:47 CDTReason for ExamTraumaReportCT FACE WITHOUT IV CONTRAST; CORONAL AND SAGITTAL REFORMATTED VIEWSHISTORY:TraumaCOMPARISON:None.TECHNIQUE: Axial CT images of the face were obtained with coronal and sagittal reformatted views. 3-D reconstruction of the facial bones. Automated exposure control, iterative reconstruction technique, and/or adjustment of mA and/or kV according to patient's size was utilized for radiation dose reduction.IV CONTRAST: None.Location: [id number]:The mandible is intact.The temporomandibular joints are maintained. No facial fracture. Mild thickening of the maxillary sinuses. The remainder the paranasal sinuses are clear. The mastoid air cells are clear.The globes appear intact. No retrobulbar hemorrhage or mass. No CT evidence of extraocular muscle entrapment, correlate clinically.There are multiple apical lucencies along the teeth of the right maxilla.IMPRESSION:No facial fracture.Periodontal disease. Final Dictated by: MD Ludy, SmileyatedDT/TM: 07/19/2018 10:01 amSigned by: MD Ludy, Alexandersouth amanaMagda (Electronic Signature): 07/19/2018 10:04 [facility] Brain/Head w/o [id number] 10:01:11Patient: DESTINEE HERNANDEZ Date/Time07/19/2018 09:47 CDTReason for ExamTraumaReportCT HEAD WITHOUT CONTRAST.HISTORY: TraumaCOMPARISON: No comparis on is available.TECHNIQUE: Axial CT images of the head were obtained with coronal and/or sagittal reformatted views. Automated exposure control, iterative reconstruction technique, and/or adjustment of mA and/or kV according to patient's size was utilized for radiation dose reduction.IV CONTRAST: None .Location: [id number]:Mild amount of periventricular and deep white matter [...] cells are clear.IMPRESSION:No evidence of acute intracranial abnormali ty.Mild chronic microvascular ischemic changes and atrophy. Final Dictated by: MD Ludy, Prasad DT/TM: 07/19/2018 9:59 amSigned by: MD Boston SankamanSigned (Electronic Signature): 07/19/2018 10:01 am
[2020-01-20] MEDS ORDERED: LORazepam 2 MG/ML VIAL ONE (22:14)
[2020-01-20] MEDS ORDERED: NA CHLORIDE 0.9% 1,000 ML ONE (22:14)
[2020-01-20 22:16] LABS: Urine Blood NEGATIVE (NEG); Urine Glucose NEGATIVE (NEG); Urine Protein NEGATIVE (NEG); Urine pH 5.5 (5.0-7.0)
[2020-01-20 22:36] LABS: Barbiturates NEGATIVE (NEGATIVE); Benzodiazepines NEGATIVE (NEGATIVE); Cocaine NEGATIVE (NEGATIVE); METHAMPHETAM NEGATIVE (NEGATIVE); Methadone NEGATIVE (NEGATIVE); Opiates NEGATIVE (NEGATIVE); Phencyclidine NEGATIVE (NEGATIVE); THC Cannibis NEGATIVE (NEGATIVE)
[2020-01-20 23:32] LABS: Protime INR 1.11
[2020-01-20 23:37] LABS: Basophils % 0.6 % (0-1.3); Lymphocytes % 35.7 % (15.3-44.8); MPV 9.1 fL (7.6-11.3); RBC Red Blood Cell Count 5.25 M/uL (4.33-5.43)
[2020-01-20 23:47] LABS: ALT/SGPT 20 U/L (12-78); AST/SGOT 19 U/L (15-37); Albumin 3.5 g/dL (3.4-5.0); Alkaline Phosphatase 105 U/L (45-117); BUN Blood Urea Nitrogen 5 mg/dL (7-18); Bicarbonate 23 mmol/L (21-32); Bilirubin Direct 0.3 mg/dL (0-0.2); Bilirubin Total 0.8 mg/dL (0.2-1.0); Glucose Level 96 mg/dL (74-106); Magnesium 2.3 mg/dL (1.8-2.4); Potassium 3.2 mmol/L (3.5-5.1); Protein, Total 7.6 g/dL (6.4-8.2); Sodium Level 142 mmol/L (136-145)
--- NOTE | 2020-01-21 05:20 | EDPHYS ---
Physician Documentation [facility] Name: Alban Rodriguez Age: 59 yrs Sex: Male : 1960 Arrival Date: 01/20/2020 Time: 21:38 Bed 17 Private MD: ED Physician Prosper Landaverde HPI: 01/19 22:51 This 59 yrs old Male presents to ER via [employer] with complaints of rn Suicidal Ideation. 22:51 The patient presents to the emergency department with depression, psychosis, suicide rn ideation. Onset: The symptoms/episode began/occurred at an unknown time. Associated signs and symptoms: Pertinent positives; anxiety, hallucinations, suicide ideation, Pertinent negatives: fever, headache, homicidal ideation. Severity of symptoms: At their worst the symptoms were mild in the emergency department the symptoms are unchanged. The patient has experienced similar episodes in the past. Reports hx of schizophrenia and alcohol abuse, has been having thoughts of hurting himself lately. reports last drink today, had a 6 pack. Reports not taking his meds, having hallucinations that are telling him to harm himself. No plan. No previous attempt. Not homicidal. . Historical: - Allergies: 21:52 No Known Allergies; bb - Home Meds: 21:52 risperidone 2.5 mg Oral tab every night [Active]; butropion 300 mg 300 mg daily bb [Active]; bupropion HCl 300 mg Oral Tb24 1 tab once daily [Active]; trazodone 100 mg Oral tab [Active]; hydroxyzine HCl 50 mg oral tab [Active]; methotrexate sodium 2.5 mg Oral tab [Active]; folic acid 1 mg Oral tab 1 tab once daily [Active]; Metformin Oral [Active]; Lisinopril Oral [Active]; Zofran Oral [Active]; - PMHx: 21:52 Asthma; psoriasis; Schizophrenia; bb - PSHx: 21:52 Knee surgery; bb - Immunization history:: Adult Immunizations unknown. - Social history:: Smoking status: Patient reports the use of cigarette tobacco products, Patient uses alcohol, Patient/guardian denies using street drugs. - Family history:: not pertinent. - Hospitalizations: : No recent hospitalization is reported. ROS: 22:51 Constitutional: Negative for fever, chills, and weight loss, Eyes: Negative for injury, rn pain, redness, and discharge, Cardiovascular: Negative for chest pain, palpitations, and edema, Respiratory: Negative for shortness of breath, cough, wheezing, and pleuritic chest pain, Abdomen/GI: Negative for abdominal pain, nausea, vomiting, diarrhea, and constipation, MS/Extremity: Negative for injury and deformity, Skin: Negative for injury, rash, and discoloration, Neuro: Negative for headache, weakness, numbness, tingling, and seizure, Psych: Negative for homicidal ideation Exam: 22:51 Constitutional: Disheveled male, no acute distress Head/Face: Normocephalic, rn atraumatic. ENT: dry MM Cardiovascular: tachycardic, regular Respiratory: Speaking full sentences, unlabored. Abdomen/GI: soft, non-tender Skin: Warm, dry, dirty feet. MS/ Extremity: Pulses equal, no cyanosis. Neurovascular intact. Full, normal range of motion. Equal circumference. Neuro: Awake and alert, GCS 15, oriented to person, place, time, and situation. Cranial nerves II-XII grossly intact. Motor strength 5/5 in all extremities. Sensory grossly intact. Cerebellar exam normal. Vital Signs: 21:46 BP 159 / 84; Pulse 117; Resp 16 S; Temp 97.8(TE); Pulse Ox 99% on R/A; Weight 97.52 kg bb (R); Height 6 ft. 0 in. (182.88 cm) (R); Pain 0/10; 01/20 03:50 BP 134 / 89; Pulse 104; Resp 16; Temp 99; Pulse Ox 98% ; Pain 0/10; kk5 07:00 BP 142 / 105; Pulse 91; Resp 22; Temp 97.8; Pulse Ox 98% ; bp 09:00 BP 146 / 94; Pulse 83; Resp 18; Pulse Ox 97% ; bp 12:00 BP 121 / 82; Pulse 88; Resp 21; Pulse Ox 97% ; bp 16:00 BP 115 / 79; Pulse 77; Resp 19; Pulse Ox 97% ; bp 18:00 BP 125 / 59; Pulse 91; Resp 15; Pulse Ox 98% ; bp 19:15 BP 90 / 62; Pulse 86; Resp 21; Temp 97.2; Pulse Ox 100% ; lc4 22:19 BP 115 / 84; Pulse 73; Resp 18; Pulse Ox 98% on R/A; dh4 01/19 21:46 Body Mass Index 29.16 (97.52 kg, 182.88 cm) bb MDM: 01/19 21:39 Patient medically screened. rn 01/20 02:01 Differential diagnosis: depression, psychosis secondary to non-compliance, suicidal rn ideation. Data reviewed: vital signs, nurses notes, lab test result(s), EKG, and as a result, I will admit patient. Counseling: I had a detailed discussion with the patient and/or guardian regarding: the historical points, exam findings, and any diagnostic results supporting the discharge/admit diagnosis, lab results, the need to transfer to another facility. 02:20 ED course: [facility] has been notified and pending evaluation. . rn 05:18 ED course: Evaluated by [facility], recommend inpatient to [facility]. . rn 16:14 ED course: The patient is resting comfortably in the ED and has not required further kdr intervention or medication. 01/19 21:50 Order name: Acetaminophen; Complete Time: 01:37 rn 01/19 21:50 Order name: Basic Metabolic Panel; Complete Time: :37 rn 01/19 21:50 Order name: CBC with Diff; Complete Time: 23:45 rn 01/19 21:50 Order name: ETOH Level; Complete Time: :37 rn 01/19 21:50 Order name: Hepatic Function; Complete Time: :37 rn 01/19 21:50 Order name: PT-INR; Complete Time: 23:45 rn 01/19 21:50 Order name: Ptt, Activated; Complete Time: 23:45 rn 01/19 21:50 Order name: Salicylate; Complete Time: :37 rn 01/19 21:50 Order name: Urine Drug Screen; Complete Time: 23:08 rn 01/19 21:51 Order name: Magnesium; Complete Time: 01:37 rn 01/19 22:14 Order name: Urine Dipstick--Ancillary (enter results) tt3 01/19 22:15 Order name: Urine Dipstick-Ancillary; Complete Time: 23:08 EDMS 01/20 11:26 Order name: COVID-19 bp 01/19 21:50 Order name: EKG; Complete Time: 21:51 rn 01/19 21:50 Order name: EKG - Nurse/Tech; Complete Time: 22:20 rn 01/19 21:50 Order name: IV Saline Lock; Complete Time: 22:20 rn 01/19 21:50 Order name: Labs collected and sent; Complete Time: 07:08 rn 01/19 21:50 Order name: Urine Dipstick-Ancillary (obtain specimen); Complete Time: 22:20 rn 01/20 11:48 Order name: Diet Finger Food; Complete Time: 11:49 bp 01/20 13:08 Order name: SARS-COV-2 RT PCR; Complete Time: 17:56 EDMS 01/20 18:49 Order name: Diet Finger Food; Complete Time: 18:50 bp Administered Medications: 01/19 22:05 Drug: Ativan 2 mg Route: IVP; Site: right hand; ea 01/20 07:08 Follow up: Response: Anxiety decreased bp 01/19 22:06 Drug: NS 0.9% 1000 ml Route: IV; Rate: 1000 ml; Site: right hand; ea 01/20 18:03 Follow up: IV Status: Completed infusion; IV Intake: 1000ml bp 07:20 Drug: Ativan 1 mg Route: IVP; Site: right hand; bp 11:26 Follow up: Response: Anxiety decreased bp Disposition: 01/21/20 05:19 Transfer ordered to Psych Facility. Diagnosis are Hallucinations, unspecified, Suicidal ideations. - Reason for transfer: Higher level of care. - Accepting physician is Dr. Good/[facility]. - Condition is Stable. - Problem is an ongoing problem. - Symptoms are unchanged. Signatures: Dispatcher [employer] [facility] Prosper Landaverde MD MD kdr Ballard, Brenda RN RN Ty Daugherty MD MD rn Pena, Laura, RN RN lp1 Zoey Ramirez RN RN ea Peltier, Brian, RN RN bp Corrections: (The following items were deleted from the chart) 11:58 11:27 CORONAVIRUS ordered. [facility] 18:07 05:19 01/21/2020 05:19 Transfer ordered to Psych Facility. Diagnosis is Hallucinations, kdr unspecified; Suicidal ideations. Reason for transfer: Higher level of care. Accepting physician is . Condition is Stable. Problem is an ongoing problem. Symptoms are unchanged. rn 22:21 18:07 01/21/2020 05:19 Transfer ordered to Psych Facility. Diagnosis is Hallucinations, lp1 unspecified; Suicidal ideations. Reason for transfer: Higher level of care. Accepting physician is Dr. Good/[facility]. Condition is Stable. Problem is an ongoing problem. Symptoms are unchanged. kdr
--- NOTE | 2020-01-21 05:20 | ER ---
Nurse's Notes [facility] [place], [place] Name: Alban Rodriguez Age: 59 yrs Sex: Male : 1960 Arrival Date: 01/20/2020 Time: 21:38 Bed 17 Private MD: Diagnosis: Hallucinations, unspecified;Suicidal ideations Presentation: 01/19 21:46 Chief complaint: pt brought to ED by PD who states pt had called the hot line saying if bb he had a gun he would kill himself. Pt states he is suicidal, has mental problems and has been skipping his medication. Coronavirus screen: At this time, the client does not indicate any symptoms associated with coronavirus-19. Ebola Screen: No symptoms or risks identified at this time. Initial Sepsis Screen: Does the patient meet any 2 criteria? No. Patient's initial sepsis screen is negative. Does the patient have a suspected source of infection? No. Patient's initial sepsis screen is negative. Risk Assessment: Do you want to hurt yourself or someone else? Patient reports no desire to harm self or others. Onset of symptoms is unknown. 21:46 Method Of Arrival: Law Enforcement bb 21:46 Acuity: TERRENCE 2 bb Historical: - Allergies: 21:52 No Known Allergies; bb - Home Meds: 21:52 risperidone 2.5 mg Oral tab every night [Active]; butropion 300 mg 300 mg daily bb [Active]; bupropion HCl 300 mg Oral Tb24 1 tab once daily [Active]; trazodone 100 mg Oral tab [Active]; hydroxyzine HCl 50 mg oral tab [Active]; methotrexate sodium 2.5 mg Oral tab [Active]; folic acid 1 mg Oral tab 1 tab once daily [Active]; Metformin Oral [Active]; Lisinopril Oral [Active]; Zofran Oral [Active]; - PMHx: 21:52 Asthma; psoriasis; Schizophrenia; bb - PSHx: 21:52 Knee surgery; bb - Immunization history:: Adult Immunizations unknown. - Social history:: Smoking status: Patient reports the use of cigarette tobacco products, Patient uses alcohol, Patient/guardian denies using street drugs. - Family history:: not pertinent. - Hospitalizations: : No recent hospitalization is reported. Screenin:54 Abuse screen: Denies threats or abuse. Nutritional screening: No deficits noted. bb Tuberculosis screening: No symptoms or risk factors identified. Fall Risk Secondary diagnosis (15 points) IV access (20 points). Ambulatory Aid- None/Bed Rest/Nurse Assist (0 pts). Gait- Normal/Bed Rest/Wheelchair (0 pts) Mental Status- Overestimates/Forgets Limitations (15 pts.). Total Powers Fall Scale indicates High Risk Score (45 or more points). Fall prevention measures have been instituted. Side Rails Up X 2 1:1 Attendant Assigned. Assessment: 22:00 General: Appears in no apparent distress. unkempt, Behavior is quiet. Pain: Denies ea pain. Neuro: Level of Consciousness is awake, alert, obeys commands, Oriented to person, place, time, situation. Cardiovascular: Patient's skin is warm and dry. Respiratory: Airway is patent Respiratory effort is even, unlabored, Respiratory pattern is regular, symmetrical. GI: No signs and/or symptoms were reported involving the gastrointestinal system. Derm: Skin has blisters on precious feet. 01/20 01:40 Reassessment: Patient and/or family updated on plan of care and expected duration. Pain ea level reassessed. Pt resting with eyes closed respirations even and unlabored. Chest expansions even and symmetrical. 01:45 Reassessment: Pt speaking to [facility]. Recommendation for in patient at [facility]. ea 07:00 Reassessment: RECD REPORT FROM DENNY ALMAZAN. 59YO WM P/W ETOH ABUSE AND SI. PT HAS FREQUENT bp H/O SAME, NON-COMPLIANT WITH MEDS. 09:00 Reassessment: Patient appears in no apparent distress at this time. Patient and/or bp family updated on plan of care and expected duration. Pain level reassessed. NO S/S DT OR SZ ACTIVITY. PT SLEEPING. SITTER AT /. 11:22 Reassessment: REPORT TO MADELIN ALMAZAN FOR [facility]. TRANSFER ON HOLD FOR NEGATIVE COVID bp RESULT. 13:33 Reassessment: No changes from previously documented assessment. NEGATIVE COVID RESULTS bp FAXED TO [facility]. DOC TO DOC PENDING. 15:00 Reassessment: Patient appears in no apparent distress at this time. No changes from bp previously documented assessment. [facility] NOW STATING NO AVAILABLE ROOM. TRANSFER ATTEMPT CONTINUES. 18:01 Reassessment: AT B/S FOR RE-EVAL. PT REAFFIRMS SI, WITH PLAN TO SHOOT HIMSELF. bp [facility] TRANSFER INITIATED. 18:38 Reassessment: REPORT TO MARLO ALMAZAN AT [facility]. TRANSPORT PENDING. PT REMAINS bp VOLUNTARY. 19:45 Reassessment: Patient appears in no apparent distress at this time. Patient resting, lp1 eyes closed, respirations unlabored; sitter at bedside. 22:20 Reassessment: patient awake, speaking with EMS at bedside for transfer. Neuro: Level lp1 of Consciousness is awake, alert, obeys commands. Respiratory: Respiratory effort is even, unlabored. Derm: Skin is intact, Skin is dry, Skin is normal. Psych: 01/19 21:52 Subjective: Patient's mood is hopeless, Having thoughts of suicide. Plan for suicide is bb shoot himself. Objective: Patient is cooperative, Speech is loud, slow, Affect is flat. Interventions: Removed personal items and placed in bag. Patient placed in hospital gown. Suicide Risk Assessment: Sad Person Scale: Sex of patient: Male: Score 1 point. Age of patient: Score 0 point if patient falls outside of specified age parameters. Depression: Score 1 point if signs of depression are present. Substance Abuse: Score 1 point if patient abuses alcohol or drugs. Rational Thinking: Score 1 point if patient is lacking rational thinking. Organized Plan: Score 1 point if patient had a plan in place. Chronic Sickness: Score 1 point if patient has illness, chronic, debilitating, or severe. TOTAL POINTS: If total points are 5-6, proposed clinical action is to strongly consider hospitalization, depending upon confidence in the follow-up arrangement. Implement suicide precautions. 22:00 Safety Checks: Personal items have been removed. Door is open. No visitors are present ea at this time. Pt denies substance abuse. Commitment: Patient will be a voluntary commitment. Vital Signs: 21:46 BP 159 / 84; Pulse 117; Resp 16 S; Temp 97.8(TE); Pulse Ox 99% on R/A; Weight 97.52 kg bb (R); Height 6 ft. 0 in. (182.88 cm) (R); Pain 0/10; 01/20 03:50 BP 134 / 89; Pulse 104; Resp 16; Temp 99; Pulse Ox 98% ; Pain 0/10; kk5 07:00 BP 142 / 105; Pulse 91; Resp 22; Temp 97.8; Pulse Ox 98% ; bp 09:00 BP 146 / 94; Pulse 83; Resp 18; Pulse Ox 97% ; bp 12:00 BP 121 / 82; Pulse 88; Resp 21; Pulse Ox 97% ; bp 16:00 BP 115 / 79; Pulse 77; Resp 19; Pulse Ox 97% ; bp 18:00 BP 125 / 59; Pulse 91; Resp 15; Pulse Ox 98% ; bp 19:15 BP 90 / 62; Pulse 86; Resp 21; Temp 97.2; Pulse Ox 100% ; lc4 22:19 BP 115 / 84; Pulse 73; Resp 18; Pulse Ox 98% on R/A; dh4 01/19 21:46 Body Mass Index 29.16 (97.52 kg, 182.88 cm) bb ED Course: 01/19 21:38 Patient arrived in ED. ea 21:39 Ty Santana MD is Attending Physician. rn 21:48 Triage completed. bb 21:52 Arm band placed on Patient placed in an exam room, on a stretcher, on pulse oximetry. bb 21:54 Patient has correct armband on for positive identification. Placed in gown. Bed in low bb position. 21:58 Ho Thompson, RN is Primary Nurse. rv 22:00 Safety checks: Items removed: yes. Door open/sign placed on door: yes. Family/friend jp3 present: no. Sitter present: Yes. 22:15 Inserted saline lock: 20 gauge in right hand, using aseptic technique. ea 23:00 Lights dimmed. Warm blanket given. Pillow given. Verbal reassurance given. Diet: jp3 Patient given snack. Patient given juice. Tolerated well. Oral care given. Shower given. 23:26 Wound care: to abrasion, located on instep of left foot was cleaned with soap and jp3 water, dressed with Neosporin, band aid, Patient tolerated well. 23:27 Wound care: to abrasion, located on instep of right foot was cleaned with soap and jp3 water, dressed with Neosporin, band aid, Patient tolerated well. 01/20 01:00 Called [facility] and spoke with Arianna. After receiving information on the pt she tt3 stated she would pass it on to the screener. :52 Linda called back and provided the number to call for screening. Sitter at bed side tt3 while pt talks to screener. 03:20 Faxed pt chart and exclusionary to [facility] due to [facility]'s recommendation. tt3 03:50 Followed up to see if [facility] received fax and spoke with Beatrice. She stated that tt3 they did not receive it. Faxing chart and exclusionary over again. 07:28 Urine Dipstick--Ancillary (enter results) Sent. bp 07:41 Attending Physician role handed off by Ty Santana MD kdr 07:41 Prosper Landaverde MD is Attending Physician. kdr 07:51 Primary Nurse role handed off by oH Thompson, NORAH bp 07:51 Guru Belcher, RN is Primary Nurse. bp 08:30 [address] with [facility] and confirmed that all paperwork had been received. Antionette casiano spoke with Madelin in pt intake and coordinated a bed for this pt. At this time we are waiting for nurse to nurse report to be arranged. 11:18 Madelin from [facility] called for nurse to nurse report. em1 13:06 COVID-19 Sent. bp 13:51 Called [facility] pt intake and spoke to Madelin to confirm receipt of pt's negative em1 Covid result. I was advised that she had not seen it yet, however, the bed that had been previously assigned to this pt had been given to a [facility] pt that had checked in as a walk in. I was also advised that as soon as another bed became available, this pt would be assigned and accepted for tranfer, if not over the weekend then Friday for sure. 16:28 pt clinical chart including labs and ekg faxed to the following facilities in the em1 attempt to procure placement: [facility], [facility], [facility] and [facility]. 22:20 No provider procedures requiring assistance completed. No IV in place on assessment. lp1 Administered Medications: 01/19 22:05 Drug: Ativan 2 mg Route: IVP; Site: right hand; ea 01/20 07:08 Follow up: Response: Anxiety decreased bp 01/19 22:06 Drug: NS 0.9% 1000 ml Route: IV; Rate: 1000 ml; Site: right hand; 01/20 18:03 Follow up: IV Status: Completed infusion; IV Intake: 1000ml bp 07:20 Drug: Ativan 1 mg Route: IVP; Site: right hand; bp 11:26 Follow up: Response: Anxiety decreased bp Intake: 18:03 IV: 1000ml; Total: 1000ml. bp Outcome: 05:19 ER care complete, transfer ordered by . rn 22:20 Transferred by ground EMS to [facility], Transfer form completed. X-rays lp1 sent w/ patient. 22:20 Condition: stable 22:20 Instructed on the need for transfer. 22:21 Patient left the ED. lp1 Signatures: Prosper Landaverde MD MD kdr Ballard, Brenda RN RN Ty Daugherty MD MD rn Martinez, Eric em1 Lavinia Calderon RN RN lp1 Zoey Ramirez RN RN ea Peltier, Brian RN Charmaine Grady Ronaldo RN RN Jeremy Rose jp3 Erendira Robles kk5 Brendon Miller4 Bradley Luz 4 Jaspal Roman tt3 Corrections: (The following items were deleted from the chart) 01:07 01:00 Called [facility] and spoke with Arianna. tt3 tt3 01:40 01/19 23:59 Reassessment: scotty fajardo 01/20 07:50 07:00 BP 142 / 105; Pulse 91bpm; Resp 22bpm; Pulse Ox 98%; bp bp 11:26 11:22 Reassessment: REPORT TO MADELIN ALMAZAN FOR [facility] bp bp 18:15 18:01 Reassessment: AT B/S FOR RE-EVAL bp bp
[2020-01-21] MEDS ORDERED: LORazepam 2 MG/ML VIAL ONE (07:39)
--- NOTE | 2020-01-21 10:42 | EKG ---
Test Date: 2020-01-20 Test Time: 22:19:12 Targeting Acquisition Officer: SEGUNDO MEASUREMENT RESULTS: Intervals: Rate: 105 OK: 160 QRSD: 88 QT: 370 QTc: 489 [place]: P: 65 OK: 160 QRS: 6 T: 44 INTERPRETIVE STATEMENTS: Sinus tachycardia with occasional premature ventricular complexes RSR' or QR pattern in V1 suggests right ventricular conduction delay Nonspecific T wave abnormality Abnormal ECG Compared to ECG 01/11/2019 18:58:27 RSR' in V1 or V2 now present T-wave abnormality now present Electronically Signed On 01-21-20 10:42:14 CDT by Daniel Meredith
[2020-01-21 23:24] VITALS: TEMP 97.2
[2020-01-21 23:25] VITALS: BP 115/84; O2SAT 98
== END 2020-01-21 22:21 ==
LOC: ER 21:29
DX: R45.851 Suicidal ideations (principal); Z20.828 Contact with and (suspected) exposure to other viral communicable diseases; F20.9 Schizophrenia, unspecified; F17.210 Nicotine dependence, cigarettes, uncomplicated
CPT/HCPCS: 36415; 80048; 80076; 80307; 80320; 80329; 81003; 83735; 85025; 85610; 85730; 93005; 96361; 96374; 99285; J7030; U0003